=== PATIENT | male | born 1960 | race Caucasian/White ===

== ENCOUNTER 2017-01-05 16:28 | Inpatient (IN) | payer OTHER ==
[~2017-01-05] VITALS: Ht 177.8 cm; Wt 90.7 kg
--- NOTE | 2017-01-05 17:55 | ED GI/GU/ABDOMINAL COMPLAINT ---
History of Present Illness General Chief Complaint: General Adult Stated Complaint: LUMP ON ABDOMEN, LOSS OF APPETITE Source: patient, family, old records Exam Limitations: no limitations Vital Signs & Intake/Output Vital Signs & Intake/Output Vital Signs Date Time Temp Pulse Resp B/P Pulse O2 O2 Flow FiO2 Ox Delivery Rate 01/05 2223 97.6 98 18 100/60 01/05 2051 104 18 108/56 01/05 1941 114 20 108/66 01/05 1926 108 18 100/65 01/05 185 116 18 120/62 01/05 185 145 18 124/68 01/05 1834 107 22 122/67 Room Air 01/05 1646 97.3 120 18 133/83 96 Room Air Allergies Coded Allergies: Penicillins (UNKNOWN 01/05/17) Triage Note: C/O PAINFUL LUMP IN UPPER ABDOMEN X 2 DAYS, WORSE AFTER EATING PIZZA, STATES HE FELT CONSTIPATED, TOOK A LAXATIVE AND FEELING WORSENING PAIN WITH NAUSEA. Triage Nurses Notes Reviewed? yes Onset: Abrupt Duration: day(s): (), week(s): Timing: recent history Quality/Severity: aching, cramping, mild, moderate Severity Numbers: 6 Location: epigastric Radiation: no radiation Activities at Onset: "S/P EATING PIZZA" Prior Abdominal Problems: similar symptoms No Modifying Factors: none Associated Symptoms: PALPITATIONS HPI: 56-year-old male with no known medical history presents to emergency room complaining of a progressively worsening painful "lump" in his epigastric region for the past 2 days after eating a slice of pizza. The patient states that he's had intermittent pain in this region over the past several years that has been getting progressively worse. He thought he was constipated so we attempted taking a laxative which made the pain worse. He denies any chest pain palpitations dizziness fever chills nausea vomiting diarrhea no black or bloody stools. Denies any back pain or other abdominal pain. No history of abdominal surgeries in the past. Patient is not on any medication. He smokes marijuana daily and has a few drinks daily he is homeless and has not seen a doctor in several years. His last drink was approximately 3 days ago he has not taken anything else for the pain. The pain is worse with laying back, there are no other modifying factors or associated symptoms otherwise. (CARLI PATELSAIMA) Past History Travel History Traveled to [place] past 21 day No Medical History Any Pertinent Medical History? none Neurological: NONE EENT: NONE Cardiovascular: NONE Respiratory: NONE Gastrointestinal: NONE Hepatic: NONE Renal: NONE Musculoskeletal: NONE Psychiatric: NONE Surgical History Surgical History: non-contributory Psychosocial History What is your primary language Slovak Tobacco Use: Never used ETOH Use: occasional use Family History Hx Contributory? No (SAIMA PHIPPS) Review of Systems Review of Systems Constitutional: Reports: see HPI. All Other Systems: Reviewed and Negative Comments Review of systems: See HPI, All other systems negative. Constitutional, no chills no fever, no malaise HEENT: No visual changes no sore throat no congestion, Cardiovascular: No chest pain , palpitation Skin, no jaundice no rashes, no change in skin Respiratory: No dyspnea no cough no sputum no hemoptysis GI: No nausea no vomiting, no diarrhea, no bloating/constipation : No dysuria No hematuria, no frequency Muscle skeletal: No joint pain, no joint swelling, no back pain, no neck pain, Neurologic: No numbnessno headache Psych: No stress Heme/endocrine: No bruising no bleeding Immunology: No lymphadenopathy (SAIMA PHIPPS) Physical Exam Physical Exam General Appearance: well developed/nourished, alert, awake Gastrointestinal: soft, non-tender Comments: Well-developed well-nourished person in no acute distress HEENT: Normal EENT exam; PERRL, EOMI, HEAD is atraumatic. moist mucous membranes. Neck: Supple, no lymphadenopathy, normal range of motion without pain or tenderness Back: Nontender, no CVA tenderness. Full range of motion Cardiovascular: Irregular rate and rhythm, tachycardic no murmurs rubs or gallops, normal JVP Respiratory: No respiratory distress. Patient speaking in full complete sentences. Breath sounds clear to auscultation bilaterally: NO W/R/R Abdomen: Soft, tender to palpation over the epigastrium no pulsatile mass nondistended, no appreciable organomegaly. Normal bowel sounds. No rebound/ guarding, No appreciable enlargement of the abdominal aorta, No ascites. Rectal: Nontender. Heme negative stool. Extremity: No edema, full range of motion of extremities Neuro: Alert oriented x3, motor sensory normal, There were no obvious focal neurologic abnormalities. Skin: No appreciable rash on exposed skin, skin is warm and dry. Psych: Mood and affect is normal, memory and judgment is normal. Core Measures ACS in differential dx? Yes Severe Sepsis Present: No Septic Shock Present: No (CARLI PATEL,SAIMA) Progress Differential Diagnosis: AAA, AMI, appendicitis, biliary colic, bowel obstruction , colon cancer, cholecystitis, diverticulitis, esophageal varices, gastritis, hepatitis, hernia, ischemic bowel, perforated viscous, RAPID a. FIB INCARCERATED HERNIA Plan of Care: Orders Procedure Date/time Status Heart Healthy Diet 01/06 B Active TROPONIN LEVEL 01/06 0600 Active CBC WITHOUT DIFFERENTIAL 01/06 0600 Active BASIC ELECTROLYTES PLUS BUN&CR 01/06 0600 Active EKG 01/06 0600 Active TROPONIN LEVEL 01/06 0000 Active EKG 01/06 0000 Active CIWA 01/05 2213 Active Pathway - chart 01/05 2212 Active Patient Data 01/05 221 Active Code Status 01/05 221 Active Admit to inpatient 01/05 2158 Active Patient Data 01/05 2147 Active URINALYSIS 01/05 2138 Active Add-on Test (ER Only) 01/05 2112 Active LACTIC ACID 01/05 2054 Active Intake & Output 01/05 1945 Active Add-on Test (ER Only) 01/05 1915 Active Add-on Test (ER Only) 01/05 1834 Active EKG 01/05 1805 Active THYROID STIMULATING HORMONE 01/05 1800 Complete PARTIAL THROMBOPLASTIN TIME 01/05 1800 Complete PROTHROMBIN TIME 01/05 1800 Complete ETHANOL 01/05 1800 Complete Saline Lock 01/05 1754 Active TROPONIN LEVEL 01/05 1754 Complete LIPASE 01/05 1754 Complete LACTIC ACID 01/05 1754 Complete COMPREHENSIVE METABOLIC PANEL 01/05 1754 Complete CBC WITHOUT DIFFERENTIAL 01/05 1754 Complete AMYLASE 01/05 1754 Complete TRC EVALUATION (GEN) 01/05 UNK Active Pathway - chart 01/05 UNK Active House Staff 01/05 UNK Active VTE Mechanical Prophylaxis 01/05 UNK Active Vital Signs 01/05 UNK Active Telemetry/Coach Builder 01/05 UNK Active Intake & Output 01/05 UNK Active ECHOCARDIOGRAM 01/05 UNK Active Current Medications Sig/Anthony Start time Last Medication Dose Stop Time Status Admin Acetaminophen 650 MG Q6P PRN 01/05 2215 AC (Tylenol) Diltiazem HCl 125 MG ONCE ONE 01/05 1845 AC (Cardizem DRIP) 01/06 1944 Sodium Chloride 100 ML (Normal Saline 0.9%) Laboratory Tests 01/05/17 1800: Anion Gap 9, Estimated GFR > 60, BUN/Creatinine Ratio 12.7, Glucose 108 H, Lactic Acid 1.8, Calcium 9.0, Total Bilirubin 1.0, AST 249 H, ALT 309 H, Alkaline Phosphatase 114, Troponin I 0.11 *H, Total Protein 5.7 L, Albumin 3.5, Globulin 2.2, Albumin/Globulin Ratio 1.6, Amylase < 30 L, Lipase 51, TSH 2.180, PT 14.1 H, INR 1.35 H, APTT 27, CBC w Diff NO MAN DIFF REQ, RBC 4.55 L, MCV 82.8, MCH 27.5, RDW 13.4, MPV 9.3, Gran % 81.9 H, Lymphocytes % 11.2 L, Monocytes % 6.6, Eosinophils % 0.1, Basophils % 0.2, Absolute Granulocytes 12.1 H, Absolute Lymphocytes 1.7, Absolute Monocytes 1.0 H, Absolute Eosinophils 0, Absolute Basophils 0, PUBS MCHC 33.3, Serum Alcohol < 10.0 Labs ordered old records reviewed patient found to be in a rapid A. fib, Cardizem 10 mg IV push ordered without response and additional 10 mg IV push was given which time the patient heart rate decreased into an A. fib in the 90s to 110s Dr. MEJIA at bedside for evaluation 01/05/2017 8:07:20 PM pending CAT scan results patient resting completely reports improvement in his symptoms with Dilaudid, Cardizem drip is running noted to be A. fib in the 90s to 100s I discussed with him at length all of his lab results I discussed the patient is CAT scan results, case was discussed with Dr. CARDENAS WILL ADMIT, AGREES WITH PLAN FOR HEPARIN AND CARDIZEM GTT. (CARLI PATEL,SAIMA) Diagnostic Imaging: Viewed by Me: CT Scan. Discussed w/RAD: CT Scan. Radiology Impression: PATIENT: YARON SANTIAGO PRESENT AGE: 56 PATIENT ACCOUNT NO: [id number] : 60 LOCATION: [facility] ORDERING PHYSICIAN: SAIMA PATEL SERVICE DATE: 01/05/17 EXAM TYPE: CAT - CT ABD & PELVIS ANGIOGRAM; CTA CHEST-AORTIC DISSECTION EXAMINATION: 1. CTA chest: 2. CT ABDOMEN AND PELVIS WITH CONTRAST CLINICAL INFORMATION: Epigastric pain radiating into the chest. Concern for aortic dissection COMPARISON: None. TECHNIQUE: A noncontrast axial images obtained through the chest precontrast., followed by the administration of 95 mL Optiray [address] of the chest was then performed. Coronal and sagittal reformatted and 3-D technique No off site 3-D imaging performed. Images were then performed through the abdomen and pelvis. Coronal and sagittal reformatted images performed at CT scanner by technologist. DLP: 1227.94 mGy-cm. FINDINGS: 1. CTA CHEST; VASCULAR: Normal enhancement of thoracic aorta. No aneurysm or dissection. The pulmonary arteries are well-opacified showing no evidence of pulmonary embolism of the central pulmonary vessels. MEDIASTINUM: There are multiple borderline lymph nodes in the pretracheal retrovascular space and AP window. These may be reactive. LUNGS: There is scattered areas of groundglass nodular opacities at both lower lobes and middle lobe and lingula and in the upper lobe medially bilateral. These are nonspecific. Would favor an infectious or inflammatory etiology. The central bronchial airways are open. There is no bronchiectasis. No interstitial or reticular abnormality. FLUID: There is no pericardial effusion. There is no pleural effusion. AXILLA: No significant lymphadenopathy. 2. CT SCAN ABDOMEN PELVIS: LIVER, GALLBLADDER, AND BILIARY TREE : The liver is normal in size, shape, and attenuation. No focal hepatic lesion or biliary ductal dilatation is present. Gallbladder is normal in size with no calcified stone. There is fluid around the gallbladder but this is indeterminate given the presence of abdominal ascites. No specific inflammation of the mesentery. PANCREAS: Unremarkable. SPLEEN: Unremarkable. ADRENAL GLANDS: Unremarkable. KIDNEYS AND URETERS: The kidneys are normal in size, shape, and attenuation. No hydronephrosis, hydroureter, or calculi seen. No perinephric stranding. BLADDER: Unremarkable. GASTROINTESTINAL TRACT: The small and large bowel are unremarkable. The appendix is not identified. Mesentery: Small moderate volume of abdominal ascites. Fluid around the liver, gallbladder, spleen and bilateral paracolic gutter and layering in the pelvis at the cul-de- sac. No free air. ABDOMINAL WALL: No significant hernia is appreciated. LYMPH NODES: Normal. VASCULAR: Normal enhancement of the vasculature. No aneurysm or dissection of the aorta. Normal enhancement of the celiac axis, SMA, renal arteries and iliac arteries. PELVIC VISCERA: Unremarkable. OSSEOUS STRUCTURES: Unremarkable. IMPRESSION: 1. Normal CT of thoracic and abdominal aorta. No dissection 2. Scattered groundglass and nodular airspace opacities in the lungs bilateral. Would favor an infectious or inflammatory etiology. 3. Abdominal ascites. DICTATED BY: YANCY ORTIZ MD DATE/TIME DICTATED:01/05/171945 HARNESS REPAIRER:LEE DATE/TIME TRANSCRIBED:01/05/171945 CONFIDENTIAL, DO NOT COPY WITHOUT APPROPRIATE AUTHORIZATION. <Electronically signed in Other Vendor System> SIGNED BY: YANCY ORTIZ MD 01/05/17 2100 Initial ED EKG: a. FIB AT 150, pvcS, NO ACUTE st SEGMENT CHANGES NORMAL AXIS Repeat EKG: changed (AFIB 100, NO ACUTE CHANGES) Rhythm Strip: atrial fibrillation (SAIMA PHIPPS) Departure Departure Time of Disposition: 2146 Disposition: STILL A PATIENT Condition: Stable Clinical Impression Primary Impression: Rapid atrial fibrillation Secondary Impressions: Elevated troponin Referrals: UNKNOWN (PCP/Family) Departure Forms: Customer Survey General Discharge Information Admission Note Spoke With: RUFINO CARDENAS MD Documentation of Exam: Documentation of any treatments & extenuating circumstances including Concerns Regarding Discharge (functional status, medication knowledge or non-compliance, living conditions, etc.) that warrant an admission rather than observation: cardiogly eval, cardizem drip, heparin drip, trend labs, troponin (SAIMA PHIPPS) Critical Care Note Critical Care Note Critical Care Time: 30-74 min (SAIMA PHIPPS)
[2017-01-05 18:34] LABS: ABSOLUTE BASOPHIL COUNT 0 /CUMM (0.0-0.2); ABSOLUTE EOSINOPHIL COUNT 0 /CUMM (0.0-0.7); ABSOLUTE GRANULOCYTE CT 12.1 /CUMM (1.4-6.5); ABSOLUTE LYMPH COUNT 1.7 /CUMM (1.2-3.4); BASOPHIL % 0.2 % (0.0-2.0); EOSINOPHIL % 0.1 % (0-5); GRANULOCYTE % 81.9 % (42.2-75.2); HEMATOCRIT 37.7 % (42-52); MEAN CORPUSCULAR HGB 27.5 PG (27.0-31.0); MEAN CORPUSCULAR HGB CONC 33.3 G/DL (33.0-37.0); MEAN CORPUSCULAR VOLUME 82.8 FL (80.0-94.0); MEAN PLATELET VOLUME 9.3 FL (7.4-10.4); PLATELET COUNT 227 /CUMM (130-400); RBC DISTRIBUTION WIDTH 13.4 % (11.5-14.5); RED BLOOD CELL CT 4.55 /CUMM (4.70-6.10); WHITE BLOOD CELL COUNT 14.7 /CUMM (4.8-10.8)
--- NOTE | 2017-01-05 21:00 | CT SCAN REPORT ---
EXAMINATION: 1. CTA chest: 2. CT ABDOMEN AND PELVIS WITH CONTRAST CLINICAL INFORMATION: Epigastric pain radiating into the chest. Concern for aortic dissection COMPARISON: None. TECHNIQUE: A noncontrast axial images obtained through the chest precontrast., followed by the administration of 95 mL Optiray [address] of the chest was then performed. Coronal and sagittal reformatted and 3-D technique No off site 3-D imaging performed. Images were then performed through the abdomen and pelvis. Coronal and sagittal reformatted images performed at CT scanner by technologist. DLP: 1227.94 mGy-cm. FINDINGS: 1. CTA CHEST; VASCULAR: Normal enhancement of thoracic aorta. No aneurysm or dissection. The pulmonary arteries are well-opacified showing no evidence of pulmonary embolism of the central pulmonary vessels. MEDIASTINUM: There are multiple borderline lymph nodes in the pretracheal retrovascular space and AP window. These may be reactive. LUNGS: There is scattered areas of groundglass nodular opacities at both lower lobes and middle lobe and lingula and in the upper lobe medially bilateral. These are nonspecific. Would favor an infectious or inflammatory etiology. The central bronchial airways are open. There is no bronchiectasis. No interstitial or reticular abnormality. FLUID: There is no pericardial effusion. There is no pleural effusion. AXILLA: No significant lymphadenopathy. 2. CT SCAN ABDOMEN PELVIS: LIVER, GALLBLADDER, AND BILIARY TREE: The liver is normal in size, shape, and attenuation. No focal hepatic lesion or biliary ductal dilatation is present. Gallbladder is normal in size with no calcified stone. There is fluid around the gallbladder but this is indeterminate given the presence of abdominal ascites. No specific inflammation of the mesentery. PANCREAS: Unremarkable. SPLEEN: Unremarkable. ADRENAL GLANDS: Unremarkable. KIDNEYS AND URETERS: The kidneys are normal in size, shape, and attenuation. No hydronephrosis, hydroureter, or calculi seen. No perinephric stranding. BLADDER: Unremarkable. GASTROINTESTINAL TRACT: The small and large bowel are unremarkable. The appendix is not identified. Mesentery: Small moderate volume of abdominal ascites. Fluid around the liver, gallbladder, spleen and bilateral paracolic gutter and layering in the pelvis at the cul-de-sac. No free air. ABDOMINAL WALL: No significant hernia is appreciated. LYMPH NODES: Normal. VASCULAR: Normal enhancement of the vasculature. No aneurysm or dissection of the aorta. Normal enhancement of the celiac axis, SMA, renal arteries and iliac arteries. PELVIC VISCERA: Unremarkable. OSSEOUS STRUCTURES: Unremarkable. IMPRESSION: 1. Normal CT of thoracic and abdominal aorta. No dissection 2. Scattered groundglass and nodular airspace opacities in the lungs bilateral. Would favor an infectious or inflammatory etiology. 3. Abdominal ascites.
[2017-01-05 21:38] LABS: PT 14.1 SEC (9.4-12.5); PTT 27 SEC (25-37)
--- NOTE | 2017-01-05 21:50 | History & Physical ---
ARISTEO JACOBS,KRYSTAL 01/05/17 2148: General Information and HPI MD Statement: I have seen and personally examined YARON SANTIAGO and documented this H&P. The patient is a 56 year old M who presented with a patient stated chief complaint of [CP & SOB]. Source of Information: patient Exam Limitations: no limitations History of Present Illness: This is a 56-year-old gentleman with no significant past medical history, has not seen a physician in over 20 years presented to the emergency room with a chief complaint of chest pain and shortness of breath of 2 days duration. Patient states that he has GERD-like symptoms off and on for over the last 5-6 years however over the last couple of days his symptoms started after having a large slice of pizza. He thought his symptoms of chest pain with self alleviate however did not; she subsequently experienced dyspnea on exertion which was alleviated by rest. Denied any orthopnea or paroxysmal nocturnal dyspnea. He is a previous history of cigarette smoking but quit over 10 years ago, denies any illicit drug use but does admit to marijuana use. States that he is drinks 2-3 beers every evening however has not had any alcohol in the last 48-72 hours. Denies any previous history of alcoholic withdrawal seizures. States that his chest pain is substernal and also superior epigastric, nonradiating, not exacerbated or alleviated with movement, squeezing in nature. Allergies/Medications Allergies: Coded Allergies: Penicillins (UNKNOWN 01/05/17) Past History Travel History Traveled to [place] past 21 day No Medical History Neurological: NONE EENT: NONE Cardiovascular: NONE Respiratory: NONE Gastrointestinal: NONE Hepatic: NONE Renal: NONE Musculoskeletal: NONE Psychiatric: NONE Surgical History Surgical History: non-contributory Past Family/Social History Family History Relations & Conditions if any MOTHER, ; Cause: Myocardial infarct. Psychosocial History Primary Language: Kittitian Smoking Status: Former Smoker ETOH Use: occasional use Functional Ability ADLs Independent: dressing, eating, toileting, bathing. IADLs Independent: shopping, housework, finances, food prep, telephone, transportation , medication admin. Review of Systems Review of Systems Constitutional: Reports: see HPI. Exam & Diagnostic Data Last 24 Hrs of Vital Signs/I&O Vital Signs Date Time Temp Pulse Resp B/P Pulse O2 O2 Flow FiO2 Ox Delivery Rate 01/05 2051 104 18 108/56 02/15 1941 114 20 108/66 01/05 1926 108 18 100/65 01/05 1851 116 18 120/62 01/05 1851 145 18 124/68 01/05 1834 107 22 122/67 Room Air 01/05 1646 97.3 120 18 133/83 96 Room Air Physical Exam General Appearance Alert, Oriented X3, Cooperative, No Acute Distress Skin No Rashes, No Breakdown HEENT Atraumatic, PERRLA, EOMI Cardiovascular Normal S1, Normal S2, irregular rate and rhythm Lungs Clear to Auscultation, Normal Air Movement Abdomen Normal Bowel Sounds, Soft, No Tenderness Neurological Normal Speech, Strength at 5/5 X4 Ext, Normal Tone, Sensation Intact, Cranial Nerves 3-12 NL Extremities No Clubbing, No Cyanosis, trace b/l le edema Diagnostic Data EKG Results Rate 147, QRS 84, QTC 482 Atrial fibrillation Other Results CTA chest,ab and pelvis- IMPRESSION: 1. Normal CT of thoracic and abdominal aorta. No dissection 2. Scattered groundglass and nodular airspace opacities in the lungs bilateral. Would favor an infectious or inflammatory etiology. 3. Abdominal ascites. Assessment/Plan Assessment: Assessment- 1. New-onset atrial fibrillation 2. Positive troponin 0.11, likely demand 3. Transaminitis, AST 249, ALT 309 4. Leukocytosis, 14,700, mild left shift; likely reactive 5. History alcohol use Plan- Admitted to telemetry Vitals per protocol Trend troponin and EKG Echocardiogram Cardio consult IV Cardizem drip and IV heparin drip Placed on CIWA protocol Get blood cultures Consider GI consult for likely gastritis Heart healthy diet Pain pathway DVT prophylaxis with heparin Full code As Ranked By This Provider Problem List: 1. Rapid atrial fibrillation 2. Elevated troponin 3. Alcohol dependence Core Measures/Miscellaneous Acute Coronary Syndrome ACS Diagnosis: No Cerebrovascular Accident CVA/TIA Diagnosis: No Congestive Heart Failure CHF Diagnosis: No Venous Thromboembolism VTE Risk Factors: Age > 40 VTE Prophylaxis Ordered Inpt: Pharm- Heparin No Mech VTE prophylaxis d/t: No contraindications No VTE Pharm Prophylaxis d/t: No contraindications VTE Diagnosis: No VTE Type: NONE VTE Confirmed by (Test): NONE Severe Sepsis Severe Sepsis Present: No Septic Shock Septic Shock Present: No Miscellaneous Documentation Attending Case Discussed With: Dr. Martin Primary Care Physician: UNKNOWN Patient sees these Specialists none Level of Patient Care: Telemetry Resident Review Statement Resident Statement: examined this patient, discussed with advertising internship ZAYRA SHIPLEY MDNASH 01/06/17 1104: Attending MD Review Statement Attending Statement Attending MD Statement: examined this patient, discuss w/resident/PA/FORMING PRESS OPERATOR, reviewed EMR data (avail), discussed with case mgmt, reviewed images, amended to note (see my note)
[2017-01-05 23:50] VITALS: BP 98/62
[2017-01-06] VITALS (9 sets, daily range): BP systolic 98–106; BP diastolic 60–62
[2017-01-06 05:49] LABS: ABSOLUTE BASOPHIL COUNT 0 /CUMM (0.0-0.2); ABSOLUTE EOSINOPHIL COUNT 0.1 /CUMM (0.0-0.7); ABSOLUTE GRANULOCYTE CT 4.4 /CUMM (1.4-6.5); ABSOLUTE LYMPH COUNT 2.4 /CUMM (1.2-3.4); ABSOLUTE MONOCYTE COUNT 0.6 /CUMM (0.10-0.60); BASOPHIL % 0.6 % (0.0-2.0); GRANULOCYTE % 58.6 % (42.2-75.2); MEAN CORPUSCULAR HGB 27.7 PG (27.0-31.0); MEAN CORPUSCULAR HGB CONC 33.1 G/DL (33.0-37.0); MEAN CORPUSCULAR VOLUME 83.8 FL (80.0-94.0); MEAN PLATELET VOLUME 9.3 FL (7.4-10.4); PLATELET COUNT 161 /CUMM (130-400); RBC DISTRIBUTION WIDTH 13.5 % (11.5-14.5); RED BLOOD CELL CT 3.87 /CUMM (4.70-6.10); WHITE BLOOD CELL COUNT 7.6 /CUMM (4.8-10.8)
[2017-01-06 05:54] LABS: HEMATOCRIT 32.4 % (42-52); PTT 41 SEC (25-37)
--- NOTE | 2017-01-06 07:00 | PN- Housestaff ---
ANAHY LLOYD MD 01/06/17 0700: Subjective Follow-up For: New onset atrial fibrillation with RVR Demand ischemia Transaminitis with ascites Subjective: Patient seen and examined at bedside this AM. He reports he feels well but is requesting food as he is hungry. Patient understands that we are keeping him NPO pending gastroenterology input regarding his abdominal ascites and transaminitis. Patient currently offers no complaints, specifically no chest pain or palpiations. Review of Systems Constitutional: Denies: fever, malaise. EENTM: Denies: visual changes, nasal congestion. Cardiovascular: Denies: chest pain, orthopena, palpitations, peripheral edema. Respiratory: Denies: cough, short of breath. Gastrointestinal: Denies: abdominal pain, nausea. Genitourinary: Denies: hematuria. Musculoskeletal: Reports: muscle pain (Epigastric pain). Denies: back pain. Skin: Denies: lesions. Neurological/Psychological: Denies: anxiety, headache. Hematologic/Endocrine: Denies: polyuria, polydipsia. Objective Last 24 Hrs of Vital Signs/I&O Vital Signs Date Time Temp Pulse Resp B/P Pulse O2 O2 Flow FiO2 Ox Delivery Rate 01/06 1424 Room Air Room Air 01/06 1215 101 104/70 01/06 1000 106 20 104/60 01/06 0809 98.1 77 18 100/60 95 Room Air 01/06 0800 84 16 100/60 01/06 0600 88 16 102/62 01/06 0400 86 16 100/60 01/06 0200 96 16 100/62 16 0000 98 20 98/60 01/05 2350 98.1 98 20 98/62 95 Room Air 01/05 2223 97.6 98 18 100/60 01/05 2051 104 18 108/56 01/05 1941 114 20 108/66 01/05 1926 108 18 100/65 01/05 1851 116 18 120/62 01/05 1851 145 18 124/68 01/05 1834 107 22 122/67 Room Air 01/05 1646 97.3 120 18 133/83 96 Room Air Intake & Output 01/06 1600 01/06 0800 01/06 0000 Intake Total 608 1000 Output Total 450 Balance 158 1000 Intake, IV 248 1000 Intake, Oral 360 Output, Urine 450 Patient 200 lb Weight Physical Exam General Appearance: Alert, Oriented X3, Cooperative, No Acute Distress Skin: No Significant Lesion HEENT: Atraumatic, PERRLA, Mucous Membr. moist/pink Neck: +2 Carotid Pulse wo Bruit Lymphatic: Cervical nl Cardiovascular: Irregularly irregular Lungs: Clear to Auscultation, Normal Air Movement Abdomen: Normal Bowel Sounds, Epigastric tenderness as well as tenderness of RUQ on moderate/deep palpation. + hernia midline abdomen epigastric area. No guarding. Neurological: Normal Speech, Strength at 5/5 X4 Ext, Normal Tone, Cranial Nerves 3-12 NL Extremities: No Clubbing, No Cyanosis, No Edema Vascular: Pulses Symmetrical Current Medications: Current Medications Sig/Anthony Start time Last Medication Dose Route Stop Time Status Admin Acetaminophen 650 MG Q6P PRN 01/05 2215 DC PO Dextrose/Sodium 1,000 ML Q20H 01/06 1045 AC 01/06 Chloride IV 1215 Diltiazem HCl 30 MG Q6 01/06 1200 AC 01/06 PO 1215 Diltiazem HCl 125 MG Q24H 01/06 0630 AC 01/06 Sodium Chloride 100 ML IV 0637 Diltiazem HCl 125 MG ONCE ONE 01/05 1845 DC 01/05 Sodium Chloride 100 ML IV 01/06 1124 1915 Diltiazem HCl 125 MG ONCE ONE 01/05 1845 DC 01/06 Sodium Chloride 100 ML IV 01/06 1944 0017 Diltiazem HCl 0 .STK-MED ONE 01/05 1837 DC IV Diltiazem HCl 10 MG ONCE ONE 01/05 1830 DC 01/05 IV PUSH 01/05 1831 1851 Diltiazem HCl 10 MG ONCE ONE 01/05 1830 DC 01/05 IV PUSH 01/05 1831 1851 Diltiazem HCl 0 .STK-MED ONE 01/05 1827 DC .ROUTE Heparin Sodium 6,800 UNIT ONCE ONE 01/06 0630 DC 01/06 (Porcine) IV 01/06 0631 0620 Heparin Sodium 0 .STK-MED ONE 01/05 2136 DC (Porcine) .ROUTE Heparin Sodium 5,000 UNIT ONCE ONE 01/05 2115 DC (Porcine) IV 01/05 2116 Heparin Sodium/ 25,000 UNIT Q24H 01/06 0630 AC 01/06 Dextrose IV 0638 Dextrose/Water 500 ML Heparin Sodium/ 0 .STK-MED ONE 01/05 2136 DC Dextrose IV Heparin Sodium/ 25,000 UNIT ONCE ONE 01/05 2115 DC 01/05 Dextrose IV 01/26 1714 2212 Dextrose/Water 500 ML Hydromorphone HCl 1 MG ONCE ONE 01/05 1800 DC IV 01/05 1801 Sodium Chloride 1,000 ML BOLUS ONE 01/05 1915 DC 01/05 IV 01/05 Sodium Chloride 1,000 ML BOLUS ONE 01/05 1800 DC 01/05 IV 01/05 1859 1852 Last 24 Hrs of Lab/Armond Results Last 24 Hrs of Labs/Mics: Laboratory Tests 01/06/17 1200: APTT 70 H 01/06/17 1130: Troponin I Cancelled 01/06/17 0520: Anion Gap 7, Estimated GFR > 60, BUN/Creatinine Ratio 12.0, Troponin I 0.11 *H, APTT 41 H, CBC w Diff NO MAN DIFF REQ, RBC 3.87 L, MCV 83.8, MCH 27.7, RDW 13.5, MPV 9.3, Gran % 58.6, Lymphocytes % 32.1, Monocytes % 7.7, Eosinophils % 1.0, Basophils % 0.6, Absolute Granulocytes 4.4, Absolute Lymphocytes 2.4, Absolute Monocytes 0.6, Absolute Eosinophils 0.1, Absolute Basophils 0, PUBS MCHC 33.1 01/06/17 0200: Urine Color YEL, Urine Clarity CLEAR, Urine pH 6.0, Ur Specific Deale 1.010, Urine Protein NEG, Urine Ketones NEG, Urine Nitrite NEG, Urine Bilirubin NEG, Urine Urobilinogen 0.2, Ur Leukocyte Esterase NEG, Ur Microscopic EXAM NOT REQUIRED, Urine Hemoglobin NEG, Urine Glucose NEG 01/06/17 0030: Troponin I 0.11 *H 01/06/17 0030: Lactic Acid 1.0 01/05/17 1800: Anion Gap 9, Estimated GFR > 60, BUN/Creatinine Ratio 12.7, Glucose 108 H, Lactic Acid 1.8, Calcium 9.0, Total Bilirubin 1.0, AST 249 H, ALT 309 H, Alkaline Phosphatase 114, Troponin I 0.11 *H, Total Protein 5.7 L, Albumin 3.5, Globulin 2.2, Albumin/Globulin Ratio 1.6, Amylase < 30 L, Lipase 51, TSH 2.180, PT 14.1 H, INR 1.35 H, APTT 27, CBC w Diff NO MAN DIFF REQ, RBC 4.55 L, MCV 82.8, MCH 27.5, RDW 13.4, MPV 9.3, Gran % 81.9 H, Lymphocytes % 11.2 L, Monocytes % 6.6, Eosinophils % 0.1, Basophils % 0.2, Absolute Granulocytes 12.1 H, Absolute Lymphocytes 1.7, Absolute Monocytes 1.0 H, Absolute Eosinophils 0, Absolute Basophils 0, PUBS MCHC 33.3, Serum Alcohol < 10.0 Orders Radiology Findings: EXAMINATION: 1. CTA chest: 2. CT ABDOMEN AND PELVIS WITH CONTRAST CLINICAL INFORMATION: Epigastric pain radiating into the chest. Concern for aortic dissection COMPARISON: None. TECHNIQUE: A noncontrast axial images obtained through the chest precontrast., followed by the administration of 95 mL Optiray [address] of the chest was then performed. Coronal and sagittal reformatted and 3-D technique No off site 3-D imaging performed. Images were then performed through the abdomen and pelvis. Coronal and sagittal reformatted images performed at CT scanner by technologist. DLP: 1227.94 mGy-cm. FINDINGS: 1. CTA CHEST; VASCULAR: Normal enhancement of thoracic aorta. No aneurysm or dissection. The pulmonary arteries are well-opacified showing no evidence of pulmonary embolism of the central pulmonary vessels. MEDIASTINUM: There are multiple borderline lymph nodes in the pretracheal retrovascular space and AP window. These may be reactive. LUNGS: There is scattered areas of groundglass nodular opacities at both lower lobes and middle lobe and lingula and in the upper lobe medially bilateral. These are nonspecific. Would favor an infectious or inflammatory etiology. The central bronchial airways are open. There is no bronchiectasis. No interstitial or reticular abnormality. FLUID: There is no pericardial effusion. There is no pleural effusion. AXILLA: No significant lymphadenopathy. 2. CT SCAN ABDOMEN PELVIS: LIVER, GALLBLADDER, AND BILIARY TREE: The liver is normal in size, shape, and attenuation. No focal hepatic lesion or biliary ductal dilatation is present. Gallbladder is normal in size with no calcified stone. There is fluid around the gallbladder but this is indeterminate given the presence of abdominal ascites. No specific inflammation of the mesentery. PANCREAS: Unremarkable. SPLEEN: Unremarkable. ADRENAL GLANDS: Unremarkable. KIDNEYS AND URETERS: The kidneys are normal in size, shape, and attenuation. No hydronephrosis, hydroureter, or calculi seen. No perinephric stranding. BLADDER: Unremarkable. GASTROINTESTINAL TRACT: The small and large bowel are unremarkable. The appendix is not identified. Mesentery: Small moderate volume of abdominal ascites. Fluid around the liver, gallbladder, spleen and bilateral paracolic gutter and layering in the pelvis at the cul-de-sac. No free air. ABDOMINAL WALL: No significant hernia is appreciated. LYMPH NODES: Normal. VASCULAR: Normal enhancement of the vasculature. No aneurysm or dissection of the aorta. Normal enhancement of the celiac axis, SMA, renal arteries and iliac arteries. PELVIC VISCERA: Unremarkable. OSSEOUS STRUCTURES: Unremarkable. IMPRESSION: 1. Normal CT of thoracic and abdominal aorta. No dissection 2. Scattered groundglass and nodular airspace opacities in the lungs bilateral. Would favor an infectious or inflammatory etiology. 3. Abdominal ascites. Assessment/Plan Assessment: Mr. Ferrera is a 56 year old male with no significant past medical history and past social history of possible ETOH dependance who presented to the [facility] ED on 01/05/17 with chief complaint of GERD-like symptoms for approximately 2 days. Patient reports that he was eating pizza and noticed this became "stuck" by his abdominal hernia, after which he took gas-x without relief. Associated symptoms included decreased oral intake secondary to abdominal pain and mild palpitaitons with chest discomfort. In the ED: Vital signs showed T 97.3, HR 120, RR 18, BP 133/83 and O2 saturation of 96% on RA. Labs showed WBC 14.7, H&H 12.6/37.7, Plt 227, Na 134 and otherwise unremarkable BEP. Troponin 0.11. Amylase/lipase WNL. TSH 2.18. INR 1.35. Alcohol <10. EKG showed atrial fibrillation with RVR, HR 147, QRS [address] chest/ abdomen/pelvis showed no dissection of aorta, groundglass airspace disease and abdominal ascites. Patient is admitted to the telemetry floor and the following is the management: 1. New onset atrial fibrillation with RVR * CHADS-Vasc 0 * Patient started on IV heparin drip as well as IV cardizem drip * Patient started on 30 mg PO cardizem Q6 while titrating off cardizem drip, heart rate well controlled will taper off throughout the day * No cardioversion to be done at this time * Due to low CHADS-Vasc, patient will liekly not require lifelong AC 2. Epigastric pain with transaminitis and ascites * On admission, patient had abdominal/pelvis CTA that showed abdominal ascites * GI consult placed and appreciated * Suggested advancing to low sodium, high fiber diet which was done * IR contacted and suggested only small amount of fluid that is moderate to remove given close proximity to liver (this has been discussed with Dr. Campos and we will not proceed with paracentesis) * Protonix 40 gm PO daily started, mirlax for consitpation * Vital hepatitis panel, VIKI and iron studies ordered, f/u results * Follow daily LFTs 3. ETOH dependance * Patient placed on CIWA scale * CIWA has been 0 since admission * Consulted patient on abstinence from ETOH and he acknowledged understanding FULL CODE DVTP: IV heparin Problem List: 1. Rapid atrial fibrillation 2. Elevated troponin 3. Alcohol dependence Pain Ratin Pain Location: Epigastric area Pain Goal: Pain 4 or less Pain Plan: Mild pain pathway. Tomorrow's Labs & Rationales: CBC (on heparin drip), LFT[facility] 1104: Attending MD Review Statement Attending Statement Attending MD Statement: examined this patient, discuss w/resident/PA/SUSTAINABILITY COACH, reviewed EMR data (avail), discussed with case mgmt, reviewed images, amended to note (see my note)
--- NOTE | 2017-01-06 11:11 | PN- Att Addend ---
Attending Addendum Attending Brief Note 1. New onset atrial fibrillation with rapid ventricular response; CHADS-Vasc 0 2. Minimal troponin elevation, nonspecific with flat troponin curve 3. EtOH dependence 4. Abdominal pain with ascites 5. Abnormal LFTs Patient presents with new onset atrial fibrillation, possibly precipitated by the abdominal pain. We'll continue intravenous Cardizem drip and start on oral Cardizem for rate control. His CHADS-Vasc score is low and will likely not need for anticoagulation in the future but we will keep him on intravenous heparin temporarily. No indication for urgent cardioversion at this time. Will request GI consultation and if needed the heparin can be held for any indicated procedures (?paracentesis). We will obtain an echocardiogram. The minimal troponin elevation with flat troponin curve is nonspecific and unlikely due to cardiac ischemia. As the patient has had no primary care follow-up in many years we will arrange for both close primary care and cardiology follow-up after discharge. No evidence of EtOH withdrawal at this time. I have personally seen and examined this patient. I have personally reviewed all relevant imaging and laboratory data. I have discussed the case with the care team. Roberto Fitzgerald MD [facility]
[2017-01-06 12:55] LABS: PTT 70 SEC (25-37)
--- NOTE | 2017-01-06 15:20 | Cons- Gastroenterology ---
General Information and HPI Consulting Request Date of Consult: 01/06/17 Requested By: RUFINO CARDENAS MD Reason for Consult: Abdominal pain, ascites on ct scan. Source of Information: patient Exam Limitations: no limitations History of Present Illness: Mr. Ferrera is a 56-year-old male with no significant previous medical history who presented to [facility] yesterday with complaints of worsening abdominal pain and wound up getting admitted with rapid A. fib. The patient notes that several days before admission after eating he develops severe midepigastric abdominal pain and he felt as though something was caught in his stomach, but he denied any dysphagia to solids or liquids. The pain was sharp in character and did not radiate to his back or right upper quadrant. He felt that he was constipated so he took a bottle of magnesium citrate which did result in a scant bowel movement and some improvement in his abdominal pain, but the symptoms recurred the following day which caused him to come to the ER. He has had some nausea but he has been without any vomiting or hematemesis. He also denies any burning epigastric pain or heartburn. While he has had difficulty moving his bowels he has been without any bright blood per rectum or any melena. In the emergency room the patient was found to be in rapid A. fib and he was admitted to telemetry and was started on IV Cardizem and IV heparin. He also had a CAT scan which was negative for obstruction or any obvious source of his abdominal pain. Since admission he has been hemodynamically stable and afebrile and his abdominal pain has markedly improved, but he is still complaining of it. Allergies/Medications Allergies: Coded Allergies: Penicillins (UNKNOWN 01/05/17) Home Med List: Dicyclomine Hydrochloride (Bentyl) 10 MG CAPSULE 1 CAP PO 4 TIMES/DAY PRN Abdominal pain Lisinopril 2.5 MG TABLET 1 TAB PO DAILY HTN Metoprolol Succ XL (Toprol XL) 25 MG TAB 1.5 TAB PO DAILY HTN Omeprazole Magnesium (Prilosec Otc) 20 MG TABLET.DR 1 TAB PO DAILY GERD Polyethylene Glycol 3350 (Miralax) 17 GRAM/DOSE POWDER 17 GM PO DAILY PRN Constipation mix with water, juice, soda, coffee or tea Rivaroxaban (Xarelto) 20 MG TABLET 1 TAB PO QPM Anticoagulant with food Current Medications: Current Medications Sig/Anthony Start time Last Medication Dose Route Stop Time Status Admin Acetaminophen 650 MG Q6P PRN 01/05 2215 DC PO Dextrose/Sodium 1,000 ML Q20H 01/06 1045 AC 01/06 Chloride IV 1215 Diltiazem HCl 30 MG Q6 01/06 1200 AC 01/06 PO 1215 Diltiazem HCl 125 MG Q24H 01/06 0630 AC 01/06 Sodium Chloride 100 ML IV 0637 Diltiazem HCl 125 MG ONCE ONE 01/05 1845 DC 01/05 Sodium Chloride 100 ML IV 01/06 1124 1915 Diltiazem HCl 125 MG ONCE ONE 01/05 1845 DC 01/06 Sodium Chloride 100 ML IV 01/06 1944 0017 Diltiazem HCl 0 .STK-MED ONE 01/05 183 DC IV Diltiazem HCl 10 MG ONCE ONE 01/05 1830 DC 01/05 IV PUSH 01/05 1831 1851 Diltiazem HCl 10 MG ONCE ONE 01/05 1830 DC 01/05 IV PUSH 01/05 183 1851 Diltiazem HCl 0 .STK-MED ONE 01/05 1827 DC .ROUTE Heparin Sodium 6,800 UNIT ONCE ONE 01/06 0630 DC 01/06 (Porcine) IV 01/06 0631 0620 Heparin Sodium 0 .STK-MED ONE 01/05 213 DC (Porcine) .ROUTE Heparin Sodium 5,000 UNIT ONCE ONE 01/05 2115 DC (Porcine) IV 01/05 211 Heparin Sodium/ 25,000 UNIT Q24H 01/06 0630 AC 01/06 Dextrose IV 0638 Dextrose/Water 500 ML Heparin Sodium/ 0 .STK-MED ONE 01/05 2136 DC Dextrose IV Heparin Sodium/ 25,000 UNIT ONCE ONE 01/05 2115 DC 01/05 Dextrose IV /08 1714 2212 Dextrose/Water 500 ML Hydromorphone HCl 1 MG ONCE ONE 01/05 1800 DC IV 01/05 1801 Sodium Chloride 1,000 ML BOLUS ONE 01/05 1915 DC 01/05 IV 01/05 2014 2000 Sodium Chloride 1,000 ML BOLUS ONE 01/05 1800 DC 01/05 IV 01/05 1859 1852 Past History Travel History Traveled to [place] past 21 day No Medical History Blood Transfusion Hx: No Neurological: NONE EENT: NONE Cardiovascular: NONE Respiratory: NONE Gastrointestinal: NONE Hepatic: NONE Renal: NONE Musculoskeletal: NONE Psychiatric: NONE Endocrine: NONE Blood Disorders: NONE Cancer(s): NONE 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 Psychosocial History Where Do You Live? Home Services at Home: None Primary Language: Swedish Smoking Status: Former Smoker ETOH Use: occasional use Functional Ability ADLs Independent: dressing, eating, toileting, bathing. IADLs Independent: shopping, housework, finances, food prep, telephone, transportation , medication admin. Review of Systems Review of Systems Constitutional: Denies: no symptoms. EENTM: Denies: no symptoms. Cardiovascular: Reports: palpitations. Respiratory: Denies: no symptoms. GI: Reports: see HPI. Genitourinary: Denies: no symptoms. Musculoskeletal: Denies: no symptoms. Skin: Denies: no symptoms. Neurological/Psychological: Denies: no symptoms. Hematologic/Endocrine: Denies: no symptoms. Immunologic/Allergic: Denies: no symptoms. All Other Systems: Reviewed and Negative Exam & Diagnostic Data Vital Signs and I&O Vital Signs Date Time Temp Pulse Resp B/P Pulse O2 O2 Flow FiO2 Ox Delivery Rate 01/06 1424 Room Air Room Air 01/06 1215 101 104/70 01/06 1000 106 20 104/60 01/06 0809 98.1 77 18 100/60 95 Room Air 01/06 0800 84 16 100/60 01/06 0600 88 16 102/62 01/06 0400 86 16 100/60 01/06 0200 96 16 100/62 01/06 0000 98 20 98/60 01/05 2350 98.1 98 20 98/62 95 Room Air 01/05 2223 97.6 98 18 100/60 01/05 2051 104 18 108/56 01/05 1941 114 20 108/66 01/05 1926 108 18 100/65 01/05 1851 116 18 120/62 01/05 1851 145 18 124/68 01/05 1834 107 22 122/67 Room Air 01/05 1646 97.3 120 18 133/83 96 Room Air Intake & Output 01/06 1600 01/06 0400 01/05 1600 01/05 0400 01/04 1600 01/04 0400 Intake Total 608 1000 Output Total 450 Balance 158 1000 Intake, IV 248 1000 Intake, Oral 360 Output, Urine 450 Patient 200 lb Weight Physical Exam General Appearance: well developed/nourished, no apparent distress, alert, awake , comfortable Head: atraumatic, normal appearance Eyes: Bilateral: normal appearance. Ears, Nose, Throat: normal pharynx, normal ENT inspection Neck: normal inspection, supple, full range of motion Respiratory: normal breath sounds, chest non-tender, no respiratory distress Cardiovascular: irregularly irregular Gastrointestinal: normal bowel sounds, soft, tenderness Rectal: deferred Back: normal inspection Extremities: normal inspection Neurologic/Psych: no motor/sensory deficits, awake, alert, oriented x 3 Skin: intact, normal color, warm/dry Lymphatic: adenopathy Results Pertinent Lab Results: Laboratory Tests 01/06 01/06 01/06 1200 1130 0520 Chemistry Sodium (137 - 145 mmol/L) 136 L Potassium (3.5 - 5.1 mmol/L) 4.2 Chloride (98 - 107 mmol/L) 107 Carbon Dioxide (22 - 30 mmol/L) 22 Anion Gap (5 - 16) 7 BUN (9 - 20 mg/dL) 12 Creatinine (0.7 - 1.2 mg/dL) 1.0 Estimated GFR (>60 ml/min) > 60 BUN/Creatinine Ratio (7 - 25 %) 12.0 Troponin I (<0.11 ng/ml) Cancelled 0.11 *H Coagulation APTT (25 - 37 SEC) 70 H 41 H Hematology CBC w Diff NO MAN DIFF REQ WBC (4.8 - 10.8 /CUMM) 7.6 RBC (4.70 - 6.10 /CUMM) 3.87 L Hgb (14.0 - 18.0 G/DL) 10.7 L Hct (42 - 52 %) 32.4 L MCV (80.0 - 94.0 FL) 83.8 MCH (27.0 - 31.0 PG) 27.7 RDW (11.5 - 14.5 %) 13.5 Plt Count (130 - 400 /CUMM) 161 MPV (7.4 - 10.4 FL) 9.3 Gran % (42.2 - 75.2 %) 58.6 Lymphocytes % (20.5 - 51.1 %) 32.1 Monocytes % (1.7 - 9.3 %) 7.7 Eosinophils % (0 - 5 %) 1.0 Basophils % (0.0 - 2.0 %) 0.6 Absolute Granulocytes (1.4 - 6.5 /CUMM) 4.4 Absolute Lymphocytes (1.2 - 3.4 /CUMM) 2.4 Absolute Monocytes (0.10 - 0.60 /CUMM) 0.6 Absolute Eosinophils (0.0 - 0.7 /CUMM) 0.1 Absolute Basophils (0.0 - 0.2 /CUMM) 0 PUBS MCHC (33.0 - 37.0 G/DL) 33.1 01/06 01/06 01/06 0200 0030 0030 Chemistry Lactic Acid (0.7 - 2.1 mmol/L) 1.0 Troponin I (<0.11 ng/ml) 0.11 *H Urines Urine Color (YEL,AMB,STR) YEL Urine Clarity (CLEAR) CLEAR Urine pH (5.0 - 8.0) 6.0 Ur Specific [place] (1.001 - 1.035) 1.010 Urine Protein (NEG,<30 MG/DL) NEG Urine Ketones (NEG) NEG Urine Nitrite (NEG) NEG Urine Bilirubin (NEG) NEG Urine Urobilinogen (0.1 - 1.0 EU/dl) 0.2 Ur Leukocyte Esterase (NEG) NEG Ur Microscopic EXAM NOT REQUIRED Urine Hemoglobin (NEG) NEG Urine Glucose (N MG/DL) NEG 01/05 1800 Chemistry Sodium (137 - 145 mmol/L) 134 L Potassium (3.5 - 5.1 mmol/L) 4.8 Chloride (98 - 107 mmol/L) 101 Carbon Dioxide (22 - 30 mmol/L) 24 Anion Gap (5 - 16) 9 BUN (9 - 20 mg/dL) 14 Creatinine (0.7 - 1.2 mg/dL) 1.1 Estimated GFR (>60 ml/min) > 60 BUN/Creatinine Ratio (7 - 25 %) 12.7 Glucose (65 - 99 mg/dL) 108 H Lactic Acid (0.7 - 2.1 mmol/L) 1.8 Calcium (8.4 - 10.2 mg/dL) 9.0 Total Bilirubin (0.2 - 1.3 mg/dL) 1.0 AST (17 - 59 U/L) 249 H ALT (21 - 72 U/L) 309 H Alkaline Phosphatase (< 127 U/L) 114 Troponin I (<0.11 ng/ml) 0.11 *H Total Protein (6.3 - 8.2 g/dL) 5.7 L Albumin (3.5 - 5.0 g/dL) 3.5 Globulin (1.9 - 4.2 gm/dL) 2.2 Albumin/Globulin Ratio (1.1 - 2.2 %) 1.6 Amylase (30 - 110 U/L) < 30 L Lipase (23 - 300 U/L) 51 TSH (0.270 - 4.200 uIU/mL) 2.180 Coagulation PT (9.4 - 12.5 SEC) 14.1 H INR (0.90 - 1.17) 1.35 H APTT (25 - 37 SEC) 27 Hematology CBC w Diff NO MAN DIFF REQ WBC (4.8 - 10.8 /CUMM) 14.7 H RBC (4.70 - 6.10 /CUMM) 4.55 L Hgb (14.0 - 18.0 G/DL) 12.6 L Hct (42 - 52 %) 37.7 L MCV (80.0 - 94.0 FL) 82.8 MCH (27.0 - 31.0 PG) 27.5 RDW (11.5 - 14.5 %) 13.4 Plt Count (130 - 400 /CUMM) 227 MPV (7.4 - 10.4 FL) 9.3 Gran % (42.2 - 75.2 %) 81.9 H Lymphocytes % (20.5 - 51.1 %) 11.2 L Monocytes % (1.7 - 9.3 %) 6.6 Eosinophils % (0 - 5 %) 0.1 Basophils % (0.0 - 2.0 %) 0.2 Absolute Granulocytes (1.4 - 6.5 /CUMM) 12.1 H Absolute Lymphocytes (1.2 - 3.4 /CUMM) 1.7 Absolute Monocytes (0.10 - 0.60 /CUMM) 1.0 H Absolute Eosinophils (0.0 - 0.7 /CUMM) 0 Absolute Basophils (0.0 - 0.2 /CUMM) 0 PUBS MCHC (33.0 - 37.0 G/DL) 33.3 Toxicology Serum Alcohol (<10 MG/DL) < 10.0 Imaging/Other Studies: EXAM TYPE: CAT - CT ABD & PELVIS ANGIOGRAM; CTA CHEST-AORTIC DISSECTION EXAMINATION: 1. CTA chest: 2. CT ABDOMEN AND PELVIS WITH CONTRAST CLINICAL INFORMATION: Epigastric pain radiating into the chest. Concern for aortic dissection COMPARISON: None. TECHNIQUE: A noncontrast axial images obtained through the chest precontrast., followed by the administration of 95 mL Optiray [address] of the chest was then performed. Coronal and sagittal reformatted and 3-D technique No off site 3-D imaging performed. Images were then performed through the abdomen and pelvis. Coronal and sagittal reformatted images performed at CT scanner by technologist. DLP: 1227.94 mGy-cm. FINDINGS: 1. CTA CHEST; VASCULAR: Normal enhancement of thoracic aorta. No aneurysm or dissection. The pulmonary arteries are well-opacified showing no evidence of pulmonary embolism of the central pulmonary vessels. MEDIASTINUM: There are multiple borderline lymph nodes in the pretracheal retrovascular space and AP window. These may be reactive. LUNGS: There is scattered areas of groundglass nodular opacities at both lower lobes and middle lobe and lingula and in the upper lobe medially bilateral. These are nonspecific. Would favor an infectious or inflammatory etiology. The central bronchial airways are open. There is no bronchiectasis. No interstitial or reticular abnormality. FLUID: There is no pericardial effusion. There is no pleural effusion. AXILLA: No significant lymphadenopathy. 2. CT SCAN ABDOMEN PELVIS: LIVER, GALLBLADDER, AND BILIARY TREE: The liver is normal in size, shape, and attenuation. No focal hepatic lesion or biliary ductal dilatation is present. Gallbladder is normal in size with no calcified stone. There is fluid around the gallbladder but this is indeterminate given the presence of abdominal ascites. No specific inflammation of the mesentery. PANCREAS: Unremarkable. SPLEEN: Unremarkable. ADRENAL GLANDS: Unremarkable. KIDNEYS AND URETERS: The kidneys are normal in size, shape, and attenuation. No hydronephrosis, hydroureter, or calculi seen. No perinephric stranding. BLADDER: Unremarkable. GASTROINTESTINAL TRACT: The small and large bowel are unremarkable. The appendix is not identified. Mesentery: Small moderate volume of abdominal ascites. Fluid around the liver, gallbladder, spleen and bilateral paracolic gutter and layering in the pelvis at the cul-de-sac. No free air. ABDOMINAL WALL: No significant hernia is appreciated. LYMPH NODES: Normal. VASCULAR: Normal enhancement of the vasculature. No aneurysm or dissection of the aorta. Normal enhancement of the celiac axis, SMA, renal arteries and iliac arteries. PELVIC VISCERA: Unremarkable. OSSEOUS STRUCTURES: Unremarkable. IMPRESSION: 1. Normal CT of thoracic and abdominal aorta. No dissection 2. Scattered groundglass and nodular airspace opacities in the lungs bilateral. Would favor an infectious or inflammatory etiology. 3. Abdominal ascites. Assessment/Plan Assessment/Recommendations: Assessment: Mr. Ferrear is a 56-year-old male who presented to [facility] with complaints of diffuse abdominal pain and was admitted for rapid atrial fibrillation and has since been started on IV Cardizem and IV heparin. The etiology of his abdominal pain is not clear, however his CAT scan was negative for any obvious bowel obstruction or acute intra-abdominal pathology. He was noted to have a moderate amount of ascites on CAT scan, but he does not have radiographic evidence of cirrhosis and his platelet count over 150,000 also argues against significant portal hypertension. He was noted to have a history of alcohol dependence on his admitting diagnoses, however the patient denies heavy alcohol intake and while his LFTs are elevated this is most likely from a fatty liver as the ratio is not consistent with alcohol. While it may be helpful to perform a diagnostic paracentesis to rule out SBP I'm not certain that there is enough fluid to sample based on his lack of a fluid wave or significant abdominal distention on physical exam. He does have point tenderness on physical examination in the midepigastrium, but he does not have an obvious hernia and his CAT scan was negative for any significant hernia. Considering his reports of constipation and some improvement in his abdominal pain with having a bowel movement I suspect that some of his symptoms may be functional in etiology and may improve with some adjustments to his bowel regimen. As he is over 50 years of age has not had a prior endoscopic workup it would not be unreasonable to pursue this now, however as he is without signs of overt GI bleeding or any other concerning warning signs and is currently getting anticoagulated for rapid atrial fibrillation this can likely safely be pursued as an outpatient. Recognitions: 1. Advance to a low-sodium, high-fiber diet as tolerated. 2. Check with interventional radiology as to if the amount of ascites he had on his CAT scan would be amenable to a diagnostic tap and if it is would temporary hold his heparin so that one can be performed and would send the ascitic fluid for a cell count, Gram stain, culture, total protein, and albumin. 3. Administer analgesia as needed. 4. Place the patient on oral PPI. 5. Would start a standing order MiraLAX for constipation. 6. Treatment of atrial fibrillation as per cardiology, but there are no absolute GI contraindications to continuing anticoagulation. 7. Follow daily LFTs and would check a viral hepatitis panel, VIKI and iron studies. I will continue to follow this patient and make further recommendations based on his clinical course and results of repeat blood work. Problem List: 1. Rapid atrial fibrillation 2. Elevated troponin Copies To: QUINTEN JACOBS,TIMOTHY Consult Acknowledgment - Thank you for your consult request.
--- NOTE | 2017-01-06 19:36 | ECHOCARDIOGRAM REPORT ---
YARON SANTIAGO Age: 56 : 1960 Gender: M Exam Date: 01/06/2017 10:46 Exam Location: [address] [facility] Ht (in): 70 Wt (lb): 200 BSA: 2.14 BP: 100 / 62 Ordering Physician: ANIBAL ALBERTS M Referring Physician: ANIBAL ALBERTS MD Technologist: Omar Winters [facility] Room Number: 189-1 Indications: AFIB/FLUTTER Rhythm: Atrial fibrillation Technical Quality: FINDINGS Left Ventricle Moderate left ventricular dilatation. No left ventricular hypertrophy. Severely reduced global left ventricular systolic function. Left ventricular ejection fraction is estimated at 20 %. Right Ventricle Normal right ventricular size. Mildly reduced right ventricular global systolic function. Right Atrium Mild to moderate right atrial dilatation. Left Atrium Mild to moderate left atrial dilatation. Mitral Valve Structurally normal mitral valve. Moderate mitral regurgitation. Aortic Valve No aortic stenosis. Trileaflet aortic valve. Tricuspid Valve Structurally normal tricuspid valve. Mild tricuspid regurgitation. Right ventricular systolic pressure estimated at > 45 mmHg. Pulmonic Valve Pulmonic valve not well visualized, grossly normal. Pericardium Minimal pericardial effusion (normal variant). Great Vessels Normal size aortic root. IVC 2.6 cm. CONCLUSIONS Moderate left ventricular dilatation. No left ventricular hypertrophy. Severely reduced global left ventricular systolic function. Left ventricular ejection fraction is estimated at 20 %. Normal right ventricular size. Mildly reduced right ventricular global systolic function. Mild to moderate right atrial dilatation. Mild to moderate left atrial dilatation. Moderate mitral regurgitation. Right ventricular systolic pressure estimated at > 45 mmHg. Minimal pericardial effusion (normal variant). Normal size aortic root. IVC 2.6 cm. Tony Fitzgerald M.D. (Electronically Signed) Final Date: 06 January 2017 19:35 MEASUREMENTS (Male / Female) Normal Values 2D ECHO LV Diastolic Diameter PLAX 7.1 cm 4.2 - 5.9 / 3.9 - 5.3 cm LV Systolic Diameter PLAX 6.4 cm 2.1 - 4.0 cm LV Fractional Shortening PLAX 9.9 % 25 - 46 % LV Ejection Fraction 2D Teich 20.9 % IVS Diastolic Thickness 0.9 cm LVPW Diastolic Thickness 1.0 cm LV Relative Wall Thickness 0.3 RV Internal Dim ED PLAX 3.5 cm 1.9 - 3.8 cm LVOT Diameter 2.0 cm Aortic Root Diameter 2.9 cm LA Systolic Diameter LX 4.8 cm 3.0 - 4.0 / 2.7 - 3.8 cm LA Volume 156.0 cm 18 - 58 / 22 - 52 cm Ascending Aorta Diameter 3.3 cm DOPPLER AV Peak Velocity 131.0 cm/s AV Peak Gradient 6.9 mmHg AV Mean Velocity 99.9 cm/s AV Mean Gradient 4.0 mmHg AV Velocity Time Integral 25.3 cm LVOT Peak Velocity 103.0 cm/s LVOT Peak Gradient 4.2 mmHg LVOT Mean Velocity 71.6 cm/s LVOT Mean Gradient 2.0 mmHg LVOT Velocity Time Integral 19.9 cm LVOT Stroke Volume 62.5 cm AV Area Cont Eq vti 2.5 cm AV Area Cont Eq pk 2.5 cm MV Peak Velocity 152.0 cm/s MV Peak Gradient 9.2 mmHg MV Mean Velocity 83.3 cm/s MV Mean Gradient 4.0 mmHg Mitral E Point Velocity 137.0 cm/s MV PHT Velocity 158.0 cm/s MV Deceleration [place]field 772.0 cm/s MV Pressure Half Time 61.4 ms MV Area PHT 3.6 cm MV Deceleration Time 88.0 ms MR Peak Velocity 557.5 cm/s MR Peak Gradient 124.3 mmHg TR Peak Velocity 313.0 cm/s TR Peak Gradient 39.2 mmHg Right Atrial Pressure 10.0 mmHg Pulmonary Artery Systolic Pressu 49.2 mmHg Right Ventricular Systolic Press 49.2 mmHg PV Peak Velocity 66.2 cm/s PV Peak Gradient 1.8 mmHg PV Mean Velocity 43.9 cm/s PV Mean Gradient 1.0 mmHg PV Velocity Time Integral 12.2 cm LV E' Septal Velocity 5.7 cm/s Mitral E to LV E' Septal Ratio 24.2
[2017-01-07 02:15] LABS: PTT 43 SEC (25-37)
--- NOTE | 2017-01-07 07:01 | PN- Housestaff ---
See Addendum Subjective Follow-up For: Atrial fibrillation with RVR Elevated troponins Abdominal pain, etiology unknown Transaminitis with ascites ETOH dependance Subjective: Patient seen and examined at bedside this AM. He reports he slept well, though he has continued abdominal pain that acutely worsened with a large bolus of food at dinner time last night. Patient was instructed smaller bites with smaller meals would be more beneficial as well as continuing laxative regimen. Patient currently denies any cardiac symptoms, including orthopnea, peripheral edema, chest pain or palpitations. Patient also denies symptoms of ETOH withdrawl. Of note, patient was somewhat hostile to evening nurse and was not given his 12am dose of cardizem. Review of Systems Constitutional: Denies: chills, fever. EENTM: Denies: visual changes, nasal congestion. Cardiovascular: Denies: chest pain, edema, orthopena, palpitations, peripheral edema. Respiratory: Denies: cough, short of breath, wheezing. Gastrointestinal: Reports: see HPI, abdominal pain. Denies: diarrhea, nausea, bloody stool, vomiting. Genitourinary: Denies: dysuria, hematuria. Musculoskeletal: Reports: muscle pain (Epigastric/RUQ). Skin: Denies: rash. Neurological/Psychological: Denies: confusion, headache. Hematologic/Endocrine: Denies: bleeding. Immunologic/Allergic: Denies: splenectomy. Objective Last 24 Hrs of Vital Signs/I&O Vital Signs Date Time Temp Pulse Resp B/P Pulse O2 O2 Flow FiO2 Ox Delivery Rate 01/07 0530 110 100/60 01/06 2340 98.0 121 21 100/60 97 Room Air 01/06 2200 130 01/06 2000 112 01/06 1800 99 01/06 1757 89 106/62 01/06 1600 98.5 80 20 106/62 01/06 1600 98.5 80 20 106/62 92 Room Air 01/06 1424 Room Air Room Air 01/06 1400 98 01/06 1215 101 104/70 01/06 1200 105 01/06 1000 106 20 104/60 01/06 0809 98.1 77 18 100/60 95 Room Air Intake & Output 01/07 1600 01/07 0800 01/07 0000 Intake Total 936 Output Total 650 Balance 286 Intake, IV 376 Intake, Oral 560 Output, Urine 650 Physical Exam General Appearance: Alert, Oriented X3, Cooperative, No Acute Distress Skin: No Rashes, No Significant Lesion HEENT: Atraumatic, PERRLA, Mucous Membr. moist/pink Neck: Supple, +2 Carotid Pulse wo Bruit Lymphatic: Cervical nl Cardiovascular: Irregularly irregular. Lungs: Clear to Auscultation, Normal Air Movement Abdomen: Normal Bowel Sounds, Soft, Epigastric and RUQ pain to mild, moderate and deep palpation. + lipoma vs hernia midline abdomen in epigastric region, slightly more prominent on flexion of abdomen. Neurological: Normal Gait, Normal Speech, Strength at 5/5 X4 Ext, Normal Tone Extremities: No Clubbing, No Cyanosis, No Edema Vascular: Pulses Symmetrical Current Medications: Current Medications Sig/Anthony Start time Last Medication Dose Route Stop Time Status Admin Acetaminophen 650 MG Q6P PRN 01/05 2215 DC PO Dextrose/Sodium 1,000 ML Q20H 01/06 1045 DC 01/06 Chloride IV 1215 Diltiazem HCl 30 MG Q6 01/06 1200 AC 01/07 PO 0530 Diltiazem HCl 125 MG Q24H 01/06 0630 DC 01/06 Sodium Chloride 100 ML IV 0637 Heparin Sodium/ 25,000 UNIT Q24H 01/06 0630 AC 01/06 Dextrose IV 1541 Dextrose/Water 500 ML Magnesium Citrate 300 ML ONE ONE 01/065 DC 01/06 PO 01/06 204 2152 Omeprazole 40 MG DAILY AC 01/06 1550 AC 01/07 PO 0531 Polyethylene Glycol 17 GM DAILY 01/06 1551 AC 01/06 PO 1704 Last 24 Hrs of Lab/Armond Results Last 24 Hrs of Labs/Mics: Laboratory Tests 01/07/17 0645: Anion Gap 7, Estimated GFR > 60, BUN/Creatinine Ratio 10.0, Total Bilirubin 0.4, Direct Bilirubin 0.3, AST 98 H, ALT 212 H, Alkaline Phosphatase 85, Total Protein 4.7 L, Albumin 2.7 L, CBC w Diff NO MAN DIFF REQ, RBC 3.95 L, MCV 83.3, MCH 28.2, RDW 13.6, MPV 9.4, Gran % 59.0, Lymphocytes % 30.6, Monocytes % 8.4, Eosinophils % 1.3, Basophils % 0.7, Absolute Granulocytes 3.8, Absolute Lymphocytes 2.0, Absolute Monocytes 0.5, Absolute Eosinophils 0.1, Absolute Basophils 0, PUBS MCHC 33.9, Hepatitis A IgM Ab Pending, Hep Bs Antigen Pending, Hep B Core IgM Ab Conf Pending, Hepatitis C Antibody Pending 01/07/17 0140: APTT 43 H 01/06/17 1200: APTT 70 H 01/06/17 1130: Troponin I Cancelled Orders ECHO Findings: CONCLUSIONS Moderate left ventricular dilatation. No left ventricular hypertrophy. Severely reduced global left ventricular systolic function. Left ventricular ejection fraction is estimated at 20 %. Normal right ventricular size. Mildly reduced right ventricular global systolic function. Mild to moderate right atrial dilatation. Mild to moderate left atrial dilatation. Moderate mitral regurgitation. Right ventricular systolic pressure estimated at > 45 mmHg. Minimal pericardial effusion (normal variant). Normal size aortic root. IVC 2.6 cm. Miscellaneous Findings: Chest CTA: IMPRESSION: 1. Normal CT of thoracic and abdominal aorta. No dissection 2. Scattered groundglass and nodular airspace opacities in the lungs bilateral. Would favor an infectious or inflammatory etiology. 3. Abdominal ascites. Assessment/Plan Assessment: Mr. Ferrera is a 56 year old male with no significant past medical history and past social history of possible ETOH dependance who presented to the [place] ED on 01/05/17 with chief complaint of GERD-like symptoms for approximately 2 days. Patient reports that he was eating pizza and noticed this became "stuck" by his abdominal hernia, after which he took gas-x without relief. Associated symptoms included decreased oral intake secondary to abdominal pain and mild palpitaitons with chest discomfort. In the ED: Vital signs showed T 97.3, HR 120, RR 18, BP 133/83 and O2 saturation of 96% on RA. Labs showed WBC 14.7, H&H 12.6/37.7, Plt 227, Na 134 and otherwise unremarkable BEP. Troponin 0.11. Amylase/lipase WNL. TSH 2.18. INR 1.35. Alcohol <10. EKG showed atrial fibrillation with RVR, HR 147, QRS [address] chest/ abdomen/pelvis showed no dissection of aorta, groundglass airspace disease and abdominal ascites. Patient is admitted to the telemetry floor and the following is the management: 1. New onset atrial fibrillation with RVR * CHADS-Vasc 1 (1 point for CHF as noted on echocardiogram) * Patient initially started on IV heparin drip as well as IV cardizem drip (IV cardizem drip has since been discontinued) * Discontinue 30 mg PO cardizem Q6, start patient on metoprolol 12.5 mg PO Q6 with a one time dose of 0.5 mg IV digoxin NOW * Hopefully these two new medications will allow tapering off of cardizem drip * 0.125 mg PO digoxin to begin starting tomorrow 01/08 for better rate control * Continue heparin drip for now, patient will require at least 30 days anticoagulation after cardioversion * TIEN cardioversion to be done Tuesday, 01/10 so patient will be NPO Tuesday night * Echo obtained yesterday showed systolic dysfunction, LVEF 20% and severely decreased global left ventricular systolic function 2. Positive troponins * Likely represent demand ischemia in setting of atrial fibrillation with RVR * Troponin shows flat curve at 0.11 without peak, more consistent with demand ischemia 3. Epigastric pain with transaminitis and ascites * On admission, patient had abdominal/pelvis CTA that showed abdominal ascites * IR suggested moderate risk of paracentesis given close proximity to liver, will not proceed with diagnostic paracentesis * Continue to follow GI recommendations * F/U RUQ abdominal US * Diet advanced to low sodium, high fiber diet which has been done * Protonix 40 mg PO daily contined, mirlax for consitpation * Vital hepatitis panel nonreactive , VIKI negative and iron studies showed low iron/% saturation (consider adding Fe once abdominal pain improves) * Follow daily LFTs (trending down from admission) 4. ETOH dependance * Patient placed on CIWA scale * CIWA has been 0-2 since admission * Consulted patient on abstinence from ETOH and he acknowledged understanding * Social work consult placed, f/u rec's FULL CODE DVTP: IV heparin Problem List: 1. Rapid atrial fibrillation 2. Elevated troponin 3. Alcohol dependence 4. Abdominal pain 5. Ascites 6. Transaminitis Pain Ratin Pain Location: Epigastric region on palpation. Pain Goal: Pain 7 or less Pain Plan: Small frequent meals, laxatives. No tylenol in the setting of transaminitis. Tomorrow's Labs & Rationales: CBC (heparin therapy)
[2017-01-07 07:46] LABS: ABSOLUTE BASOPHIL COUNT 0 /CUMM (0.0-0.2); ABSOLUTE EOSINOPHIL COUNT 0.1 /CUMM (0.0-0.7); ABSOLUTE GRANULOCYTE CT 3.8 /CUMM (1.4-6.5); ABSOLUTE MONOCYTE COUNT 0.5 /CUMM (0.10-0.60); BASOPHIL % 0.7 % (0.0-2.0); EOSINOPHIL % 1.3 % (0-5); HEMATOCRIT 32.9 % (42-52); MEAN CORPUSCULAR HGB 28.2 PG (27.0-31.0); MEAN CORPUSCULAR HGB CONC 33.9 G/DL (33.0-37.0); MEAN CORPUSCULAR VOLUME 83.3 FL (80.0-94.0); MEAN PLATELET VOLUME 9.4 FL (7.4-10.4); PLATELET COUNT 145 /CUMM (130-400); RBC DISTRIBUTION WIDTH 13.6 % (11.5-14.5); RED BLOOD CELL CT 3.95 /CUMM (4.70-6.10); WHITE BLOOD CELL COUNT 6.5 /CUMM (4.8-10.8)
[2017-01-07 08:34] VITALS: BP 121/91
--- NOTE | 2017-01-07 08:44 | PN- Gastroenterology ---
Assessment/Plan Assessment/Recommendations: Assessment: Mr. Ferrera is a 56-year-old male who presented to [facility] with complaints of diffuse abdominal pain and admitted for rapid atrial fibrillation and has since been started on IV Cardizem and IV heparin. The etiology of his abdominal pain remains unclear, but considering his reports of accompanying constipation and an unremarkable ct scan I suspect a benign/ functional etiology such as IBS with the pain being from bowel spasm albeit the location of this is a bit atypical. An endoscopic work up should ultimatley be pursued to further evaluate his complaints, but considering he is without any concerning GI warning signs and is currently getting anticoagulated for afib I feel this can safely be done as an outpatient. Of note, his echocardiogram yesterday did show an EF of only 20% so as his LFTs are now improving I suspect the increase may have been secondary to passive congestion. A passed gallstone could also potentially explain his pain and increased LFTs, but this should give some accompanying increase in his alk phos and/or bilirubin and his was normal. He was also without any obvious billiary pathology on his ct scan, but considering his reports of upper abdominal pain after eating it would be reasonable to check an US to rule out gallstones as this can be missed by ct scan. Recognitions: 1. Advance to a low-sodium, high-fiber diet as tolerated. 2. Use bentyl as needed for pain 3. Check a RUQ US. 4. Continue oral omeprazole. 5. Contineue standing order MiraLAX for constipation. 6. Treatment of atrial fibrillation as per cardiology, but there are no absolute GI contraindications to continuing anticoagulation. 7. Follow daily LFTs and would check a viral hepatitis panel, VIKI and iron studies. I will continue to follow this patient and make further recommendations based on his clinical course and results of repeat blood work. Problem List: 1. Abdominal pain 2. Transaminitis Subjective Subjective: Patient tolerated breakfast this morning without any significant abdominal pain. He has been without any vomiting. He was given a bottle of magnesium citrate last night for constipation, but is yet to have a bowel movement. s/p echo yesterday. He is still quite concerned about his abdominal pain. He refused his diltiazem this morning. Objective Vital Signs and I&Os Vital Signs Date Time Temp Pulse Resp B/P Pulse O2 O2 Flow FiO2 Ox Delivery Rate 01/07 0834 98.4 114 16 121/91 95 Room Air 02/17 0530 110 100/60 01/06 2340 98.0 121 21 100/60 97 Room Air 01/06 2200 130 01/06 2000 112 01/06 1800 99 01/06 1757 89 106/62 01/06 1600 98.5 80 20 106/62 01/06 1600 98.5 80 20 106/62 92 Room Air 01/06 1424 Room Air Room Air 01/06 1400 98 01/06 1215 101 104/70 01/06 1200 105 01/06 1000 106 20 104/60 Intake & Output 01/07 1600 01/07 0400 01/06 1600 01/06 0400 01/05 1600 01/05 0400 Intake Total 936 1488 1000 Output Total 650 550 Balance 735 698 3228 Intake, IV 381 050 3978 Intake, Oral 560 840 Output, Urine 650 550 Patient 200 lb Weight Physical Exam General Appearance: well developed/nourished, no apparent distress, alert, comfortable Head: atraumatic, normal appearance Ears, Nose, Throat: normal pharynx, normal ENT inspection Neck: normal inspection, supple, full range of motion Respiratory: normal breath sounds, chest non-tender Cardiovascular: tachycardia, irregularly irregular Abdomen: normal bowel sounds, soft, tenderness Back: normal inspection, normal range of motion Extremities: normal inspection, normal capillary refill Current Medications: Current Medications Sig/Anthony Start time Last Medication Dose Route Stop Time Status Admin Acetaminophen 650 MG Q6P PRN 01/05 2215 DC PO Dextrose/Sodium 1,000 ML Q20H 01/06 1045 DC 01/06 Chloride IV 1215 Diltiazem HCl 30 MG Q6 01/06 1200 AC 01/07 PO 0530 Diltiazem HCl 125 MG Q24H 01/06 0630 DC 01/06 Sodium Chloride 100 ML IV 0637 Heparin Sodium/ 25,000 UNIT Q24H 01/06 0630 AC 01/06 Dextrose IV 1541 Dextrose/Water 500 ML Magnesium Citrate 300 ML ONE ONE 01/06 2045 DC 01/06 PO 01/06 2046 215 Omeprazole 40 MG DAILY AC 01/06 1550 AC 01/07 PO 0531 Polyethylene Glycol 17 GM DAILY 01/06 1551 AC 01/06 PO 1704 Results Pertinent Lab Results: Laboratory Tests 01/07 01/07 01/06 0645 0140 1200 Chemistry Sodium (137 - 145 mmol/L) 137 Potassium (3.5 - 5.1 mmol/L) 4.0 Chloride (98 - 107 mmol/L) 106 Carbon Dioxide (22 - 30 mmol/L) 24 Anion Gap (5 - 16) 7 BUN (9 - 20 mg/dL) 9 Creatinine (0.7 - 1.2 mg/dL) 0.9 Estimated GFR (>60 ml/min) > 60 BUN/Creatinine Ratio (7 - 25 %) 10.0 Total Bilirubin (0.2 - 1.3 mg/dL) 0.4 Direct Bilirubin (< 0.4 mg/dL) 0.3 AST (17 - 59 U/L) 98 H ALT (21 - 72 U/L) 212 H Alkaline Phosphatase (< 127 U/L) 85 Total Protein (6.3 - 8.2 g/dL) 4.7 L Albumin (3.5 - 5.0 g/dL) 2.7 L Coagulation APTT (25 - 37 SEC) 43 H 70 H Hematology CBC w Diff NO MAN DIFF REQ WBC (4.8 - 10.8 /CUMM) 6.5 RBC (4.70 - 6.10 /CUMM) 3.95 L Hgb (14.0 - 18.0 G/DL) 11.1 L Hct (42 - 52 %) 32.9 L MCV (80.0 - 94.0 FL) 83.3 MCH (27.0 - 31.0 PG) 28.2 RDW (11.5 - 14.5 %) 13.6 Plt Count (130 - 400 /CUMM) 145 MPV (7.4 - 10.4 FL) 9.4 Gran % (42.2 - 75.2 %) 59.0 Lymphocytes % (20.5 - 51.1 %) 30.6 Monocytes % (1.7 - 9.3 %) 8.4 Eosinophils % (0 - 5 %) 1.3 Basophils % (0.0 - 2.0 %) 0.7 Absolute Granulocytes (1.4 - 6.5 /CUMM) 3.8 Absolute Lymphocytes (1.2 - 3.4 /CUMM) 2.0 Absolute Monocytes (0.10 - 0.60 /CUMM) 0.5 Absolute Eosinophils (0.0 - 0.7 /CUMM) 0.1 Absolute Basophils (0.0 - 0.2 /CUMM) 0 PUBS MCHC (33.0 - 37.0 G/DL) 33.9 Serology Hepatitis A IgM Ab (NONREACTIVE) Pending Hep Bs Antigen (NONREACTIVE) Pending Hep B Core IgM Ab Conf (NONREACTIVE) Pending Hepatitis C Antibody (NONREACTIVE) Pending 01/06 01/06 3852 [id number] Chemistry Sodium (137 - 145 mmol/L) 136 L Potassium (3.5 - 5.1 mmol/L) 4.2 Chloride (98 - 107 mmol/L) 107 Carbon Dioxide (22 - 30 mmol/L) 22 Anion Gap (5 - 16) 7 BUN (9 - 20 mg/dL) 12 Creatinine (0.7 - 1.2 mg/dL) 1.0 Estimated GFR (>60 ml/min) > 60 BUN/Creatinine Ratio (7 - 25 %) 12.0 Iron (49 - 181 ug/dL) 44 L TIBC (261 - 462 ug/dL) 302 % Saturation (16 - 45 %) 14 L Ferritin (17.9 - 464 ng/mL) 128.0 Troponin I (<0.11 ng/ml) Cancelled 0.11 *H Coagulation APTT (25 - 37 SEC) 41 H Hematology CBC w Diff NO MAN DIFF REQ WBC (4.8 - 10.8 /CUMM) 7.6 RBC (4.70 - 6.10 /CUMM) 3.87 L Hgb (14.0 - 18.0 G/DL) 10.7 L Hct (42 - 52 %) 32.4 L MCV (80.0 - 94.0 FL) 83.8 MCH (27.0 - 31.0 PG) 27.7 RDW (11.5 - 14.5 %) 13.5 Plt Count (130 - 400 /CUMM) 161 MPV (7.4 - 10.4 FL) 9.3 Gran % (42.2 - 75.2 %) 58.6 Lymphocytes % (20.5 - 51.1 %) 32.1 Monocytes % (1.7 - 9.3 %) 7.7 Eosinophils % (0 - 5 %) 1.0 Basophils % (0.0 - 2.0 %) 0.6 Absolute Granulocytes (1.4 - 6.5 /CUMM) 4.4 Absolute Lymphocytes (1.2 - 3.4 /CUMM) 2.4 Absolute Monocytes (0.10 - 0.60 /CUMM) 0.6 Absolute Eosinophils (0.0 - 0.7 /CUMM) 0.1 Absolute Basophils (0.0 - 0.2 /CUMM) 0 PUBS MCHC (33.0 - 37.0 G/DL) 33.1 Immunology VIKI Titer Pending Anti-Nuclear Antibody Pending 01/06 01/06 01/06 0200 0030 0030 Chemistry Lactic Acid (0.7 - 2.1 mmol/L) 1.0 Troponin I (<0.11 ng/ml) 0.11 *H Urines Urine Color (YEL,AMB,STR) YEL Urine Clarity (CLEAR) CLEAR Urine pH (5.0 - 8.0) 6.0 Ur Specific [place] (1.001 - 1.035) 1.010 Urine Protein (NEG,<30 MG/DL) NEG Urine Ketones (NEG) NEG Urine Nitrite (NEG) NEG Urine Bilirubin (NEG) NEG Urine Urobilinogen (0.1 - 1.0 EU/dl) 0.2 Ur Leukocyte Esterase (NEG) NEG Ur Microscopic EXAM NOT REQUIRED Urine Hemoglobin (NEG) NEG Urine Glucose (N MG/DL) NEG 01/05 1800 Chemistry Sodium (137 - 145 mmol/L) 134 L Potassium (3.5 - 5.1 mmol/L) 4.8 Chloride (98 - 107 mmol/L) 101 Carbon Dioxide (22 - 30 mmol/L) 24 Anion Gap (5 - 16) 9 BUN (9 - 20 mg/dL) 14 Creatinine (0.7 - 1.2 mg/dL) 1.1 Estimated GFR (>60 ml/min) > 60 BUN/Creatinine Ratio (7 - 25 %) 12.7 Glucose (65 - 99 mg/dL) 108 H Lactic Acid (0.7 - 2.1 mmol/L) 1.8 Calcium (8.4 - 10.2 mg/dL) 9.0 Total Bilirubin (0.2 - 1.3 mg/dL) 1.0 AST (17 - 59 U/L) 249 H ALT (21 - 72 U/L) 309 H Alkaline Phosphatase (< 127 U/L) 114 Troponin I (<0.11 ng/ml) 0.11 *H Total Protein (6.3 - 8.2 g/dL) 5.7 L Albumin (3.5 - 5.0 g/dL) 3.5 Globulin (1.9 - 4.2 gm/dL) 2.2 Albumin/Globulin Ratio (1.1 - 2.2 %) 1.6 Amylase (30 - 110 U/L) < 30 L Lipase (23 - 300 U/L) 51 TSH (0.270 - 4.200 uIU/mL) 2.180 Coagulation PT (9.4 - 12.5 SEC) 14.1 H INR (0.90 - 1.17) 1.35 H APTT (25 - 37 SEC) 27 Hematology CBC w Diff NO MAN DIFF REQ WBC (4.8 - 10.8 /CUMM) 14.7 H RBC (4.70 - 6.10 /CUMM) 4.55 L Hgb (14.0 - 18.0 G/DL) 12.6 L Hct (42 - 52 %) 37.7 L MCV (80.0 - 94.0 FL) 82.8 MCH (27.0 - 31.0 PG) 27.5 RDW (11.5 - 14.5 %) 13.4 Plt Count (130 - 400 /CUMM) 227 MPV (7.4 - 10.4 FL) 9.3 Gran % (42.2 - 75.2 %) 81.9 H Lymphocytes % (20.5 - 51.1 %) 11.2 L Monocytes % (1.7 - 9.3 %) 6.6 Eosinophils % (0 - 5 %) 0.1 Basophils % (0.0 - 2.0 %) 0.2 Absolute Granulocytes (1.4 - 6.5 /CUMM) 12.1 H Absolute Lymphocytes (1.2 - 3.4 /CUMM) 1.7 Absolute Monocytes (0.10 - 0.60 /CUMM) 1.0 H Absolute Eosinophils (0.0 - 0.7 /CUMM) 0 Absolute Basophils (0.0 - 0.2 /CUMM) 0 PUBS MCHC (33.0 - 37.0 G/DL) 33.3 Toxicology Serum Alcohol (<10 MG/DL) < 10.0 Imaging/Other Studies: echocardiogram: CONCLUSIONS Moderate left ventricular dilatation. No left ventricular hypertrophy. Severely reduced global left ventricular systolic function. Left ventricular ejection fraction is estimated at 20 %. Normal right ventricular size. Mildly reduced right ventricular global systolic function. Mild to moderate right atrial dilatation. Mild to moderate left atrial dilatation. Moderate mitral regurgitation. Right ventricular systolic pressure estimated at > 45 mmHg. Minimal pericardial effusion (normal variant). Normal size aortic root. IVC 2.6 cm.
[2017-01-07 13:15] LABS: PTT 73 SEC (25-37)
[2017-01-07 16:20] VITALS: BP 111/74
--- NOTE | 2017-01-07 17:06 | PN- Att Addend ---
Attending Addendum Attending Brief Note 1. New onset atrial fibrillation with rapid ventricular response 2. Minimal troponin elevation, nonspecific with flat troponin curve 3. Newly diagnosed severe systolic dysfunction 4. Abdominal pain with ascites 5. Abnormal LFTs Still with intermittent abdominal discomfort. GI following and RUQ US is pending. 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 We have stopped Oral Cardizem and started low dose B-booker. We have added Digoxin for additional rate control given soft BP and Cardizem gtt should be weaned off as tolerated. Will need ODALIS-I at some point but hold for now. Will titrate up B-booker dose as BP tolerates. Continue on IV Heparin. Given the severe cardiomyopathy it is now important to try and restore SR. Will plan for TIEN/Cardioversion on Tuesday if no invasive GI procedures are planned. I have personally seen and examined this patient. I have personally reviewed all relevant imaging and laboratory data. I have discussed the case with the care team. Roberto Fitzgerald MD [facility]
--- NOTE | 2017-01-07 17:16 | ULTRASOUND REPORT ---
EXAMINATION: US ABDOMEN LIMITED CLINICAL INFORMATION: Severe abdominal pain, ascites, transaminitis. Right upper quadrant ultrasound for gallstones, liver evaluation. COMPARISON: CT of the abdomen and pelvis 01/05/2017. TECHNIQUE: Real-time imaging of the right upper quadrant abdominal viscera. FINDINGS: PANCREAS: The head and body are unremarkable. The tail is obscured by gas. LIVER: Normal. The liver demonstrates normal size, contour and echogenicity. No focal lesion or intrahepatic biliary duct dilatation. GALLBLADDER: Normal. The gallbladder is physiologically distended without evidence of stones, sludge, polyps, wall thickening or pericholecystic fluid. COMMON BILE DUCT: Normal in caliber measuring 0.4 cm in diameter. RIGHT KIDNEY: Normal. No hydronephrosis. No renal calculi or focal parenchymal lesions. The kidney measures 13.2 cm in maximum dimension. FREE FLUID: There is a small amount of ascites in the right upper quadrant and left upper quadrants. IMPRESSION: 1. Small amount of ascites. 2. No evidence of cholelithiasis or cholecystitis. 3. Unremarkable liver.
[2017-01-07 22:00] VITALS: BP 94/60
[2017-01-08] VITALS: BP 106/70
[2017-01-08 00:21] VITALS: BP 106/70
[2017-01-08 01:38] LABS: PTT 83 SEC (25-37)
[2017-01-08 04:00] VITALS: BP 104/70
[2017-01-08 06:00] VITALS: BP 106/60
[2017-01-08 08:12] VITALS: BP 120/76
[2017-01-08 08:16] LABS: ABSOLUTE BASOPHIL COUNT 0 /CUMM (0.0-0.2); ABSOLUTE EOSINOPHIL COUNT 0.1 /CUMM (0.0-0.7); ABSOLUTE GRANULOCYTE CT 3.8 /CUMM (1.4-6.5); ABSOLUTE LYMPH COUNT 2.2 /CUMM (1.2-3.4); ABSOLUTE MONOCYTE COUNT 0.5 /CUMM (0.10-0.60); BASOPHIL % 0.6 % (0.0-2.0); EOSINOPHIL % 1.8 % (0-5); GRANULOCYTE % 56.9 % (42.2-75.2); HEMATOCRIT 34.6 % (42-52); MEAN CORPUSCULAR HGB 27.9 PG (27.0-31.0); MEAN CORPUSCULAR HGB CONC 33.2 G/DL (33.0-37.0); MEAN CORPUSCULAR VOLUME 84.2 FL (80.0-94.0); MEAN PLATELET VOLUME 9.3 FL (7.4-10.4); PLATELET COUNT 153 /CUMM (130-400); RBC DISTRIBUTION WIDTH 13.9 % (11.5-14.5); RED BLOOD CELL CT 4.11 /CUMM (4.70-6.10); WHITE BLOOD CELL COUNT 6.7 /CUMM (4.8-10.8)
--- NOTE | 2017-01-08 08:22 | PN- Housestaff ---
Subjective Follow-up For: Atrial fibrillation with RVR Elevated troponins Abdominal pain, etiology unknown Transaminitis with ascites ETOH dependance Tele-Events Since Last Visit: Atrial fibrillation with HR generally 80-100s but noted episodes of tachycardia into the 130s for brief periods of time. Subjective: Patient seen and examined at bedside this AM. He is slightly hostile due to the fact that abdominal workup has thus far been negative with no clear etiology of abdominal pain. On explanation that cardiac issues are very important to address , he is frustrated that we are trying new medications daily. Otherwise, he reports his abdominal pain is much better and only exacerbates with eating or rolling over in bed. He denies chest pain or any other complaint. Review of Systems Constitutional: Denies: chills, fever. EENTM: Denies: blurred vision, nasal congestion. Cardiovascular: Denies: chest pain, orthopena, palpitations, peripheral edema. Respiratory: Denies: cough, short of breath, sputum production. Gastrointestinal: Reports: abdominal pain. Denies: constipation, diarrhea, nausea, vomiting. Genitourinary: Denies: dysuria. Musculoskeletal: Denies: back pain. Skin: Denies: rash. Neurological/Psychological: Denies: confusion, headache. Hematologic/Endocrine: Denies: bruising, bleeding. Objective Last 24 Hrs of Vital Signs/I&O Vital Signs Date Time Temp Pulse Resp B/P Pulse O2 O2 Flow FiO2 Ox Delivery Rate 01/08 0812 97.9 82 18 120/76 93 Room Air 01/08 0642 80 104/70 01/08 0600 80 16 106/60 01/08 0400 80 16 104/70 01/08 0035 100 106/70 01/08 0021 92.1 85 20 106/70 93 Room Air 01/08 0000 80 16 106/70 01/07 2247 98 Room Air Room Air 01/07 2200 98.7 107 18 94/60 01/07 1837 98 108/62 01/07 1620 97.1 81 16 111/74 99 Room Air 01/07 1414 91 120/54 01/07 1242 90 01/07 1232 95 Room Air Room Air Intake & Output 01/08 1600 01/08 0800 01/08 0000 Intake Total 200 750 Output Total 1300 1100 Balance -1100 -350 Intake, IV 250 Intake, Oral 200 500 Output, Urine 1300 1100 Physical Exam General Appearance: Alert, Oriented X3, Cooperative, No Acute Distress Skin: No Rashes, No Significant Lesion HEENT: Atraumatic, PERRLA, EOMI, Mucous Membr. moist/pink Neck: No JVD Lymphatic: Cervical nl Cardiovascular: Irregularly irregular, tachycardia Lungs: Clear to Auscultation, Normal Air Movement Abdomen: Normal Bowel Sounds, Patient refuses palpation of abdomen secondary to concern for pain. Neurological: Normal Gait, Normal Speech Extremities: No Clubbing, No Cyanosis, No Edema Vascular: Pulses Symmetrical Current Medications: Current Medications Sig/Anthony Start time Last Medication Dose Route Stop Time Status Admin Dicyclomine HCl 20 MG 4 TIMES/DAY PRN 01/07 0900 AC 01/07 PO 1242 Digoxin 0.125 MG 1700 01/08 1700 AC PO Digoxin 0.5 MG ONCE ONE 01/07 1130 DC 01/07 IV 01/07 1131 1242 Diltiazem HCl 125 MG Q24H 01/07 0900 DC 01/07 Sodium Chloride 100 ML IV 0950 Diltiazem HCl 30 MG Q6 01/06 1200 NM 01/07 PO 0530 Heparin Sodium/ 25,000 UNIT Q24H 01/06 0630 AC 01/07 Dextrose IV 2046 Dextrose/Water 500 ML Metoprolol Tartrate 12.5 MG Q6 01/07 1200 AC 01/08 PO 0642 Omeprazole 40 MG DAILY AC 01/06 1550 AC 01/08 PO 0642 Polyethylene Glycol 17 GM DAILY 01/06 1551 AC 01/06 PO 1704 Last 24 Hrs of Lab/Armond Results Last 24 Hrs of Labs/Mics: Laboratory Tests 01/08/17 0640: Total Bilirubin 0.3, Direct Bilirubin 0.2, AST 57, ALT 174 H, Alkaline Phosphatase 79, Total Protein 4.8 L, Albumin 2.8 L, CBC w Diff NO MAN DIFF REQ , RBC 4.11 L, MCV 84.2, MCH 27.9, RDW 13.9, MPV 9.3, Gran % 56.9, Lymphocytes % 32.9, Monocytes % 7.8, Eosinophils % 1.8, Basophils % 0.6, Absolute Granulocytes 3.8, Absolute Lymphocytes 2.2, Absolute Monocytes 0.5, Absolute Eosinophils 0.1, Absolute Basophils 0, PUBS MCHC 33.2 01/08/17 0045: APTT 83 H 01/07/17 1151: APTT 73 H Assessment/Plan Assessment: Mr. Ferrera is a 56 year old male with no significant past medical history and past social history of possible ETOH dependance who presented to the [facility] ED on 01/05/17 with chief complaint of GERD-like symptoms for approximately 2 days. Patient reports that he was eating pizza and noticed this became "stuck" by his abdominal hernia, after which he took gas-x without relief. Associated symptoms included decreased oral intake secondary to abdominal pain and mild palpitaitons with chest discomfort. In the ED: Vital signs showed T 97.3, HR 120, RR 18, BP 133/83 and O2 saturation of 96% on RA. Labs showed WBC 14.7, H&H 12.6/37.7, Plt 227, Na 134 and otherwise unremarkable BEP. Troponin 0.11. Amylase/lipase WNL. TSH 2.18. INR 1.35. Alcohol <10. EKG showed atrial fibrillation with RVR, HR 147, QRS [address] chest/ abdomen/pelvis showed no dissection of aorta, groundglass airspace disease and abdominal ascites. Patient is admitted to the telemetry floor and the following is the management: 1. New onset atrial fibrillation with RVR * CHADS-Vasc 1 (1 point for CHF as noted on echocardiogram) * Patient initially started on IV heparin drip as well as IV cardizem drip (IV cardizem drip has since been discontinued) * Discontinued 30 mg PO cardizem Q6 as well as IV cardizem drip, patient continued on metoprolol 12.5 mg PO Q6 with a one time dose of 0.5 mg IV digoxin yesterday * 0.125 mg PO digoxin to begin starting today 01/08 for better rate control * Will f/u any further cardio rec's on rate control * Continue heparin drip for now, patient will require at least 30 days anticoagulation after cardioversion * TIEN cardioversion to be done Tuesday, 01/10 so patient will be NPO Tuesday night * Echo obtained yesterday showed systolic dysfunction, LVEF 20% and severely decreased global left ventricular systolic function 2. Positive troponins * Likely represent demand ischemia in setting of atrial fibrillation with RVR * Troponin shows flat curve at 0.11 without peak, more consistent with demand ischemia 3. Epigastric pain with transaminitis and ascites * On admission, patient had abdominal/pelvis CTA that showed abdominal ascites * IR suggested moderate risk of paracentesis given close proximity to liver, will not proceed with diagnostic paracentesis * Continue to follow GI recommendations * RUQ abdominal US showed small amount of ascites, no cholelithiasis/ cholecystitis, unremarkable liver * Diet advanced to low sodium, high fiber diet * Protonix 40 mg PO daily contined, mirlax for consitpation * Vital hepatitis panel nonreactive , VIKI negative and iron studies showed low iron/% saturation (consider adding Fe once abdominal pain improves) * Follow daily LFTs (trending down from admission) 4. ETOH dependance * Patient placed on CIWA scale * CIWA has been 0-2 since admission * Consulted patient on abstinence from ETOH and he acknowledged understanding * Social work consult placed, f/u rec's FULL CODE DVTP: IV heparin Low sodium, high fiber diet Mild pain pathway Problem List: 1. Rapid atrial fibrillation 2. Elevated troponin 3. Alcohol dependence 4. Abdominal pain 5. Ascites 6. Transaminitis Pain Ratin Pain Location: Upper abdominal pain Pain Goal: Pain 4 or less Pain Plan: Mild pain pathway, ace for cramping Tomorrow's Labs & Rationales: CBC (heparin therapy), LFTs (trending per GI recommendations)
[2017-01-08 13:17] LABS: PTT 81 SEC (25-37)
--- NOTE | 2017-01-08 13:45 | PN- Cardiology ---
Subjective Subjective: Patient states he is feeling "much better". He has a little bit of mild abdominal discomfort. He denies any chest pain, shortness of breath, palpitations. He remains in atrial fibrillation. His rate is acceptable in the 90s to low 100s. He is on beta booker and digoxin. Objective Vital Signs and I&Os Vital Signs Date Time Temp Pulse Resp B/P Pulse O2 O2 Flow FiO2 Ox Delivery Rate 01/08 1157 122 114/62 01/08 0812 97.9 82 18 120/76 93 Room Air 01/08 0642 80 104/70 01/08 0600 80 16 106/60 01/08 0400 80 16 104/70 01/08 0035 100 106/70 01/08 0021 92.1 85 20 106/70 93 Room Air 01/08 0000 80 16 106/70 01/07 2247 98 Room Air Room Air 01/07 2200 98.7 107 18 94/60 01/07 1837 98 108/62 01/07 1620 97.1 81 16 111/74 99 Room Air 01/07 1414 91 120/54 Intake & Output 01/08 1600 01/08 0800 01/08 0000 01/07 1600 01/07 0800 01/07 0000 Intake Total 200 750 810 200 936 Output Total 1300 1100 400 650 Balance -1100 -350 810 -200 286 Intake, IV 250 310 376 Intake, Oral 200 500 500 200 560 Output, Urine 1300 1100 400 650 Physical Exam: He is in no distress HEENT exam is normal Chest is clear Heart reveals irregular rhythm and no murmurs Extremities reveal good pulses and no edema. Current Medications: Current Medications Sig/Anthony Start time Last Medication Dose Route Stop Time Status Admin Dicyclomine HCl 20 MG 4 TIMES/DAY PRN 01/07 0900 AC 01/08 PO 1157 Digoxin 0.125 MG 1700 01/08 1700 AC PO Diltiazem HCl 125 MG Q24H 01/07 0900 DC 01/07 Sodium Chloride 100 ML IV 0950 Heparin Sodium/ 25,000 UNIT Q24H 01/06 0630 AC 01/07 Dextrose IV 2046 Dextrose/Water 500 ML Metoprolol Tartrate 12.5 MG Q6 01/07 1200 AC 01/08 PO 1157 Omeprazole 40 MG DAILY AC 01/06 1550 AC 01/08 PO 0642 Polyethylene Glycol 17 GM DAILY 01/06 1551 AC 01/06 PO 1704 Results Last 48 Hrs of Labs/Mics: Laboratory Tests 01/08/17 1200: APTT 81 H 01/08/17 0640: Total Bilirubin 0.3, Direct Bilirubin 0.2, AST 57, ALT 174 H, Alkaline Phosphatase 79, Total Protein 4.8 L, Albumin 2.8 L, CBC w Diff NO MAN DIFF REQ , RBC 4.11 L, MCV 84.2, MCH 27.9, RDW 13.9, MPV 9.3, Gran % 56.9, Lymphocytes % 32.9, Monocytes % 7.8, Eosinophils % 1.8, Basophils % 0.6, Absolute Granulocytes 3.8, Absolute Lymphocytes 2.2, Absolute Monocytes 0.5, Absolute Eosinophils 0.1, Absolute Basophils 0, PUBS MCHC 33.2 01/08/17 0045: APTT 83 H 01/07/17 1151: APTT 73 H 01/07/17 0645: Anion Gap 7, Estimated GFR > 60, BUN/Creatinine Ratio 10.0, Total Bilirubin 0.4, Direct Bilirubin 0.3, AST 98 H, ALT 212 H, Alkaline Phosphatase 85, Total Protein 4.7 L, Albumin 2.7 L, CBC w Diff NO MAN DIFF REQ, RBC 3.95 L, MCV 83.3, MCH 28.2, RDW 13.6, MPV 9.4, Gran % 59.0, Lymphocytes % 30.6, Monocytes % 8.4, Eosinophils % 1.3, Basophils % 0.7, Absolute Granulocytes 3.8, Absolute Lymphocytes 2.0, Absolute Monocytes 0.5, Absolute Eosinophils 0.1, Absolute Basophils 0, PUBS MCHC 33.9, Hepatitis A IgM Ab NONREACTIVE, Hep Bs Antigen NONREACTIVE, Hep B Core IgM Ab Conf NONREACTIVE, Hepatitis C Antibody NONREACTIVE 01/07/17 0140: APTT 43 H Assessment/Plan Assessment/Plan The patient is stable. He remains in atrial fibrillation. He is not clinically in congestive heart failure. He remains on IV heparin. He is to have TIEN directed cardioversion on Tuesday if he does not convert prior to that. Continue telemetry? Yes
--- NOTE | 2017-01-08 14:37 | PN- Gastroenterology ---
Assessment/Plan Assessment/Recommendations: Patient is a 56-year-old man who is homeless and intermittently takes excess alcohol and was admitted to [facility] with diffuse abdominal pain and rapid atrial fibrillation patient was seen in his hospital room this morning and was pain free. Had a large breakfast without any issues of nausea vomiting abdominal pain. On exam patient was able in bed abdomen soft nontender no rebound. Bowel sounds present LFTs improving likely due to a combination of passive congestion and EtOH. Overall patient is improving. Agree with advancing to full diet ambulating and planning for discharge if he tolerates this. For outpatient EGD and colonoscopy. Subjective Subjective: No shortness of breath chest pain palpitations abdominal pain visual disturbances anxiety. Objective Vital Signs and I&Os Vital Signs Date Time Temp Pulse Resp B/P Pulse O2 O2 Flow FiO2 Ox Delivery Rate 01/08 1157 122 114/62 01/08 0812 97.9 82 18 120/76 93 Room Air 01/08 0642 80 104/70 01/08 0600 80 16 106/60 01/08 0400 80 16 104/70 01/08 0035 100 106/70 01/08 0021 92.1 85 20 106/70 93 Room Air 01/08 0000 80 16 106/70 01/07 2247 98 Room Air Room Air 01/07 2200 98.7 107 18 94/60 01/07 1837 98 108/62 01/07 1620 97.1 81 16 111/74 99 Room Air Intake & Output 01/08 1600 01/08 0400 01/07 1600 01/07 0400 01/06 1600 01/06 0400 Intake Total 137 659 2425 936 1488 1000 Output Total 1300 1100 400 650 550 Balance -1100 -350 610 680 245 8736 Intake, IV 250 310 826 037 8748 Intake, Oral 200 500 700 560 840 Output, Urine 1300 1100 400 650 550 Patient 200 lb Weight Results Pertinent Lab Results: Laboratory Tests 01/08 01/08 01/08 01/07 1200 0640 0045 1151 Chemistry Total Bilirubin (0.2 - 1.3 mg/dL) 0.3 Direct Bilirubin (< 0.4 mg/dL) 0.2 AST (17 - 59 U/L) 57 ALT (21 - 72 U/L) 174 H Alkaline Phosphatase (< 127 U/L) 79 Total Protein (6.3 - 8.2 g/dL) 4.8 L Albumin (3.5 - 5.0 g/dL) 2.8 L Coagulation APTT (25 - 37 SEC) 81 H 83 H 73 H Hematology CBC w Diff NO MAN DIFF REQ WBC (4.8 - 10.8 /CUMM) 6.7 RBC (4.70 - 6.10 /CUMM) 4.11 L Hgb (14.0 - 18.0 G/DL) 11.5 L Hct (42 - 52 %) 34.6 L MCV (80.0 - 94.0 FL) 84.2 MCH (27.0 - 31.0 PG) 27.9 RDW (11.5 - 14.5 %) 13.9 Plt Count (130 - 400 /CUMM) 153 MPV (7.4 - 10.4 FL) 9.3 Gran % (42.2 - 75.2 %) 56.9 Lymphocytes % (20.5 - 51.1 %) 32.9 Monocytes % (1.7 - 9.3 %) 7.8 Eosinophils % (0 - 5 %) 1.8 Basophils % (0.0 - 2.0 %) 0.6 Absolute Granulocytes (1.4 - 6.5 /CUMM) 3.8 Absolute Lymphocytes (1.2 - 3.4 /CUMM) 2.2 Absolute Monocytes (0.10 - 0.60 /CUMM) 0.5 Absolute Eosinophils (0.0 - 0.7 /CUMM) 0.1 Absolute Basophils (0.0 - 0.2 /CUMM) 0 PUBS MCHC (33.0 - 37.0 G/DL) 33.2 01/07 01/07 01/06 0645 0140 1200 Chemistry Sodium (137 - 145 mmol/L) 137 Potassium (3.5 - 5.1 mmol/L) 4.0 Chloride (98 - 107 mmol/L) 106 Carbon Dioxide (22 - 30 mmol/L) 24 Anion Gap (5 - 16) 7 BUN (9 - 20 mg/dL) 9 Creatinine (0.7 - 1.2 mg/dL) 0.9 Estimated GFR (>60 ml/min) > 60 BUN/Creatinine Ratio (7 - 25 %) 10.0 Total Bilirubin (0.2 - 1.3 mg/dL) 0.4 Direct Bilirubin (< 0.4 mg/dL) 0.3 AST (17 - 59 U/L) 98 H ALT (21 - 72 U/L) 212 H Alkaline Phosphatase (< 127 U/L) 85 Total Protein (6.3 - 8.2 g/dL) 4.7 L Albumin (3.5 - 5.0 g/dL) 2.7 L Coagulation APTT (25 - 37 SEC) 43 H 70 H Hematology CBC w Diff NO MAN DIFF REQ WBC (4.8 - 10.8 /CUMM) 6.5 RBC (4.70 - 6.10 /CUMM) 3.95 L Hgb (14.0 - 18.0 G/DL) 11.1 L Hct (42 - 52 %) 32.9 L MCV (80.0 - 94.0 FL) 83.3 MCH (27.0 - 31.0 PG) 28.2 RDW (11.5 - 14.5 %) 13.6 Plt Count (130 - 400 /CUMM) 145 MPV (7.4 - 10.4 FL) 9.4 Gran % (42.2 - 75.2 %) 59.0 Lymphocytes % (20.5 - 51.1 %) 30.6 Monocytes % (1.7 - 9.3 %) 8.4 Eosinophils % (0 - 5 %) 1.3 Basophils % (0.0 - 2.0 %) 0.7 Absolute Granulocytes (1.4 - 6.5 /CUMM) 3.8 Absolute Lymphocytes (1.2 - 3.4 /CUMM) 2.0 Absolute Monocytes (0.10 - 0.60 /CUMM) 0.5 Absolute Eosinophils (0.0 - 0.7 /CUMM) 0.1 Absolute Basophils (0.0 - 0.2 /CUMM) 0 PUBS MCHC (33.0 - 37.0 G/DL) 33.9 Serology Hepatitis A IgM Ab (NONREACTIVE) NONREACTIVE Hep Bs Antigen (NONREACTIVE) NONREACTIVE Hep B Core IgM Ab Conf (NONREACTIVE) NONREACTIVE Hepatitis C Antibody (NONREACTIVE) NONREACTIVE 01/06 01/06 1130 0520 Chemistry Sodium (137 - 145 mmol/L) 136 L Potassium (3.5 - 5.1 mmol/L) 4.2 Chloride (98 - 107 mmol/L) 107 Carbon Dioxide (22 - 30 mmol/L) 22 Anion Gap (5 - 16) 7 BUN (9 - 20 mg/dL) 12 Creatinine (0.7 - 1.2 mg/dL) 1.0 Estimated GFR (>60 ml/min) > 60 BUN/Creatinine Ratio (7 - 25 %) 12.0 Iron (49 - 181 ug/dL) 44 L TIBC (261 - 462 ug/dL) 302 % Saturation (16 - 45 %) 14 L Ferritin (17.9 - 464 ng/mL) 128.0 Troponin I (<0.11 ng/ml) Cancelled 0.11 *H Coagulation APTT (25 - 37 SEC) 41 H Hematology CBC w Diff NO MAN DIFF REQ WBC (4.8 - 10.8 /CUMM) 7.6 RBC (4.70 - 6.10 /CUMM) 3.87 L Hgb (14.0 - 18.0 G/DL) 10.7 L Hct (42 - 52 %) 32.4 L MCV (80.0 - 94.0 FL) 83.8 MCH (27.0 - 31.0 PG) 27.7 RDW (11.5 - 14.5 %) 13.5 Plt Count (130 - 400 /CUMM) 161 MPV (7.4 - 10.4 FL) 9.3 Gran % (42.2 - 75.2 %) 58.6 Lymphocytes % (20.5 - 51.1 %) 32.1 Monocytes % (1.7 - 9.3 %) 7.7 Eosinophils % (0 - 5 %) 1.0 Basophils % (0.0 - 2.0 %) 0.6 Absolute Granulocytes (1.4 - 6.5 /CUMM) 4.4 Absolute Lymphocytes (1.2 - 3.4 /CUMM) 2.4 Absolute Monocytes (0.10 - 0.60 /CUMM) 0.6 Absolute Eosinophils (0.0 - 0.7 /CUMM) 0.1 Absolute Basophils (0.0 - 0.2 /CUMM) 0 PUBS MCHC (33.0 - 37.0 G/DL) 33.1 Immunology VIKI Titer ND Anti-Nuclear Antibody (NEG,1:40) NEG 1:40 IFA ASSAY 01/06 01/06 01/06 0200 0030 0030 Chemistry Lactic Acid (0.7 - 2.1 mmol/L) 1.0 Troponin I (<0.11 ng/ml) 0.11 *H Urines Urine Color (YEL,AMB,STR) YEL Urine Clarity (CLEAR) CLEAR Urine pH (5.0 - 8.0) 6.0 Ur Specific [place] (1.001 - 1.035) 1.010 Urine Protein (NEG,<30 MG/DL) NEG Urine Ketones (NEG) NEG Urine Nitrite (NEG) NEG Urine Bilirubin (NEG) NEG Urine Urobilinogen (0.1 - 1.0 EU/dl) 0.2 Ur Leukocyte Esterase (NEG) NEG Ur Microscopic EXAM NOT REQUIRED Urine Hemoglobin (NEG) NEG Urine Glucose (N MG/DL) NEG 01/05 1800 Chemistry Sodium (137 - 145 mmol/L) 134 L Potassium (3.5 - 5.1 mmol/L) 4.8 Chloride (98 - 107 mmol/L) 101 Carbon Dioxide (22 - 30 mmol/L) 24 Anion Gap (5 - 16) 9 BUN (9 - 20 mg/dL) 14 Creatinine (0.7 - 1.2 mg/dL) 1.1 Estimated GFR (>60 ml/min) > 60 BUN/Creatinine Ratio (7 - 25 %) 12.7 Glucose (65 - 99 mg/dL) 108 H Lactic Acid (0.7 - 2.1 mmol/L) 1.8 Calcium (8.4 - 10.2 mg/dL) 9.0 Total Bilirubin (0.2 - 1.3 mg/dL) 1.0 AST (17 - 59 U/L) 249 H ALT (21 - 72 U/L) 309 H Alkaline Phosphatase (< 127 U/L) 114 Troponin I (<0.11 ng/ml) 0.11 *H Total Protein (6.3 - 8.2 g/dL) 5.7 L Albumin (3.5 - 5.0 g/dL) 3.5 Globulin (1.9 - 4.2 gm/dL) 2.2 Albumin/Globulin Ratio (1.1 - 2.2 %) 1.6 Amylase (30 - 110 U/L) < 30 L Lipase (23 - 300 U/L) 51 TSH (0.270 - 4.200 uIU/mL) 2.180 Coagulation PT (9.4 - 12.5 SEC) 14.1 H INR (0.90 - 1.17) 1.35 H APTT (25 - 37 SEC) 27 Hematology CBC w Diff NO MAN DIFF REQ WBC (4.8 - 10.8 /CUMM) 14.7 H RBC (4.70 - 6.10 /CUMM) 4.55 L Hgb (14.0 - 18.0 G/DL) 12.6 L Hct (42 - 52 %) 37.7 L MCV (80.0 - 94.0 FL) 82.8 MCH (27.0 - 31.0 PG) 27.5 RDW (11.5 - 14.5 %) 13.4 Plt Count (130 - 400 /CUMM) 227 MPV (7.4 - 10.4 FL) 9.3 Gran % (42.2 - 75.2 %) 81.9 H Lymphocytes % (20.5 - 51.1 %) 11.2 L Monocytes % (1.7 - 9.3 %) 6.6 Eosinophils % (0 - 5 %) 0.1 Basophils % (0.0 - 2.0 %) 0.2 Absolute Granulocytes (1.4 - 6.5 /CUMM) 12.1 H Absolute Lymphocytes (1.2 - 3.4 /CUMM) 1.7 Absolute Monocytes (0.10 - 0.60 /CUMM) 1.0 H Absolute Eosinophils (0.0 - 0.7 /CUMM) 0 Absolute Basophils (0.0 - 0.2 /CUMM) 0 PUBS MCHC (33.0 - 37.0 G/DL) 33.3 Toxicology Serum Alcohol (<10 MG/DL) < 10.0
[2017-01-08 16:43] VITALS: BP 118/73
[2017-01-09] VITALS: BP 120/70
[2017-01-09 00:27] VITALS: BP 120/70
[2017-01-09 00:34] LABS: PTT 94 SEC (25-37)
[2017-01-09 02:00] VITALS: BP 120/70
[2017-01-09 07:51] VITALS: BP 102/70
[2017-01-09 07:56] LABS: ABSOLUTE BASOPHIL COUNT 0.1 /CUMM (0.0-0.2); ABSOLUTE EOSINOPHIL COUNT 0.1 /CUMM (0.0-0.7); ABSOLUTE GRANULOCYTE CT 4.5 /CUMM (1.4-6.5); ABSOLUTE LYMPH COUNT 2.9 /CUMM (1.2-3.4); ABSOLUTE MONOCYTE COUNT 0.7 /CUMM (0.10-0.60); BASOPHIL % 0.7 % (0.0-2.0); EOSINOPHIL % 1.7 % (0-5); GRANULOCYTE % 54.9 % (42.2-75.2); MEAN CORPUSCULAR HGB 27.6 PG (27.0-31.0); MEAN CORPUSCULAR HGB CONC 32.8 G/DL (33.0-37.0); MEAN CORPUSCULAR VOLUME 84.1 FL (80.0-94.0); MEAN PLATELET VOLUME 9.3 FL (7.4-10.4); PLATELET COUNT 185 /CUMM (130-400); RBC DISTRIBUTION WIDTH 14.2 % (11.5-14.5); RED BLOOD CELL CT 4.52 /CUMM (4.70-6.10); WHITE BLOOD CELL COUNT 8.3 /CUMM (4.8-10.8)
--- NOTE | 2017-01-09 10:04 | PN- Housestaff ---
Subjective Follow-up For: new onset atrailf ibrillation Subjective: Patient seen and examined. Feels well. Does not repot of Chest pain or pressure right now. Plan for TIEN cardioversion on Tuesday. ROS negative. Review of Systems Constitutional: Reports: see HPI. Objective Last 24 Hrs of Vital Signs/I&O Vital Signs Date Time Temp Pulse Resp B/P Pulse O2 O2 Flow FiO2 Ox Delivery Rate 01/09 1149 118/66 01/09 0751 97.6 95 18 102/70 93 Room Air 01/09 0614 78 126/76 01/09 0400 77 20 01/09 0200 97.3 77 18 120/70 01/09 0117 91 120/70 01/09 0027 97.3 91 18 120/70 91 Room Air 01/09 0000 97.3 80 18 120/70 01/08 1830 96 Room Air 01/08 1802 97 120/72 01/08 1643 98.0 83 16 118/73 92 Room Air Intake & Output 01/09 1600 01/09 0800 01/09 0000 Intake Total 433.1 200 Output Total 1100 400 Balance -666.9 -200 Intake, IV 233.1 Intake, Oral 200 200 Output, Urine 1100 400 Physical Exam General Appearance: Alert, Oriented X3, Cooperative, No Acute Distress Skin: No Rashes HEENT: Atraumatic Neck: Supple Lymphatic: Cervical nl Cardiovascular: irregular Lungs: Clear to Auscultation, Normal Air Movement Abdomen: Soft, No Tenderness Extremities: No Edema, Normal Pulses Current Medications: Current Medications Sig/Anthony Start time Last Medication Dose Route Stop Time Status Admin Dicyclomine HCl 20 MG 4 TIMES/DAY PRN 01/07 0900 AC 01/09 PO 0820 Digoxin 0.125 MG 1700 01/08 1700 AC 01/08 PO 1802 Heparin Sodium/ 25,000 UNIT Q24H 01/06 0630 AC 01/09 Dextrose IV 0119 Dextrose/Water 500 ML Metoprolol Tartrate 12.5 MG Q6 01/07 1200 AC 01/09 PO 1149 Omeprazole 40 MG DAILY AC 01/06 1550 AC 01/09 PO 0614 Polyethylene Glycol 17 GM DAILY 01/06 1551 AC 01/06 PO 1704 Last 24 Hrs of Lab/Armond Results Last 24 Hrs of Labs/Mics: Laboratory Tests 01/09/17 1100: APTT 88 H 01/09/17 0635: Magnesium 1.8, Total Bilirubin 0.6, Direct Bilirubin 0.4, AST 48, ALT 157 H, Alkaline Phosphatase 79, Total Protein 5.5 L, Albumin 3.3 L, CBC w Diff NO MAN DIFF REQ, RBC 4.52 L, MCV 84.1, MCH 27.6, RDW 14.2, MPV 9.3, Gran % 54.9, Lymphocytes % 34.5, Monocytes % 8.2, Eosinophils % 1.7, Basophils % 0.7, Absolute Granulocytes 4.5, Absolute Lymphocytes 2.9, Absolute Monocytes 0.7 H, Absolute Eosinophils 0.1, Absolute Basophils 0.1, PUBS MCHC 32.8 L 01/08/17 2355: APTT 94 H Assessment/Plan Assessment: Mr. Ferrera is a 56 year old male with no significant past medical history and past social history of possible ETOH dependance who presented to the [facility] ED on 01/05/17 with chief complaint of GERD-like symptoms for approximately 2 days. Patient reports that he was eating pizza and noticed this became "stuck" by his abdominal hernia, after which he took gas-x without relief. Associated symptoms included decreased oral intake secondary to abdominal pain and mild palpitaitons with chest discomfort. In the ED: Vital signs showed T 97.3, HR 120, RR 18, BP 133/83 and O2 saturation of 96% on RA. Labs showed WBC 14.7, H&H 12.6/37.7, Plt 227, Na 134 and otherwise unremarkable BEP. Troponin 0.11. Amylase/lipase WNL. TSH 2.18. INR 1.35. Alcohol <10. EKG showed atrial fibrillation with RVR, HR 147, QRS [address] chest/ abdomen/pelvis showed no dissection of aorta, groundglass airspace disease and abdominal ascites. Patient is admitted to the telemetry floor and the following is the management: 1. New onset atrial fibrillation with RVR * CHADS-Vasc 1 (1 point for CHF as noted on echocardiogram) * Patient initially started on IV heparin drip as well as IV cardizem drip (IV cardizem drip has since been discontinued) * Discontinued 30 mg PO cardizem Q6 as well as IV cardizem drip, patient continued on metoprolol 12.5 mg PO Q6 with a one time dose of 0.5 mg IV digoxin yesterday * 0.125 mg PO digoxin to begin starting 01/08 for better rate control * Will f/u any further cardio rec's on rate control * Continue heparin drip for now, patient will require at least 30 days anticoagulation after cardioversion * TIEN cardioversion to be done Tuesday, 01/10 so patient will be NPO Tuesday night * Echo obtained yesterday showed systolic dysfunction, LVEF 20% and severely decreased global left ventricular systolic function 2. Positive troponins * Likely represent demand ischemia in setting of atrial fibrillation with RVR * Troponin shows flat curve at 0.11 without peak, more consistent with demand ischemia 3. Epigastric pain with transaminitis and ascites * On admission, patient had abdominal/pelvis CTA that showed abdominal ascites * IR suggested moderate risk of paracentesis given close proximity to liver, will not proceed with diagnostic paracentesis * Continue to follow GI recommendations * RUQ abdominal US showed small amount of ascites, no cholelithiasis/ cholecystitis, unremarkable liver * Diet advanced to low sodium, high fiber diet * Protonix 40 mg PO daily contined, mirlax for consitpation * Vital hepatitis panel nonreactive , VIKI negative and iron studies showed low iron/% saturation (consider adding Fe once abdominal pain improves) * Follow daily LFTs (trending down from admission) 4. ETOH dependance * Patient placed on CIWA scale * CIWA has been 0-2 since admission * Consulted patient on abstinence from ETOH and he acknowledged understanding * Social work consult placed, f/u rec's FULL CODE DVTP: IV heparin Low sodium, high fiber diet Mild pain pathway Problem List: 1. Rapid atrial fibrillation 2. Ascites 3. Transaminitis Pain Ratin Pain Location: none Pain Goal: Pain 4 or less Pain Plan: tylenol prn for pain Tomorrow's Labs & Rationales: cbc bep
[2017-01-09 11:49] LABS: PTT 88 SEC (25-37)
--- NOTE | 2017-01-09 13:02 | PN- Gastroenterology ---
Assessment/Plan Assessment/Recommendations: Patient is a 56-year-old man who is homeless and intermittently takes excess alcohol and was admitted to [facility] with diffuse abdominal pain and rapid atrial fibrillation patient was seen in his hospital room this morning and was pain free. He had 3 full meals yesterday without any problems. He's also had breakfast and lunch today. No abdominal pain nausea vomiting. On exam patient was able in bed abdomen soft nontender no rebound. Bowel sounds present LFTs improving likely due to a combination of passive congestion and EtOH. Overall patient is improving. Agree with advancing to full diet ambulating and planning for discharge if he tolerates this. For outpatient EGD and colonoscopy. Subjective Subjective: No shortness of breath chest pain headaches abdominal pain and dysphagia odynophagia nausea vomiting Objective Vital Signs and I&Os Vital Signs Date Time Temp Pulse Resp B/P Pulse O2 O2 Flow FiO2 Ox Delivery Rate 01/09 1149 118/66 01/09 0751 97.6 95 18 102/70 93 Room Air 01/09 0614 78 126/76 01/09 0400 77 20 01/09 0200 97.3 77 18 120/70 01/09 0117 91 120/70 01/09 0027 97.3 91 18 120/70 91 Room Air 01/09 0000 97.3 80 18 120/70 01/08 1830 96 Room Air 01/08 1802 97 120/72 01/08 1643 98.0 83 16 118/73 92 Room Air Intake & Output 01/09 1600 01/09 0400 01/08 1600 01/08 0400 01/07 1600 01/07 0400 Intake Total 433.1 200 490 426 4490 936 Output Total 6996 940 8609 1100 400 650 Balance -666.9 -200 -380 -350 610 286 Intake, IV 233.1 250 310 376 Intake, Oral 200 200 920 500 700 560 Output, Urine 6960 396 7127 1100 400 650 Results Pertinent Lab Results: Laboratory Tests 01/09 01/09 01/08 01/08 1100 0635 2355 1200 Chemistry Potassium (3.5 - 5.1 mmol/L) 4.7 Magnesium (1.6 - 2.3 mg/dL) 1.8 Total Bilirubin (0.2 - 1.3 mg/dL) 0.6 Direct Bilirubin (< 0.4 mg/dL) 0.4 AST (17 - 59 U/L) 48 ALT (21 - 72 U/L) 157 H Alkaline Phosphatase (< 127 U/L) 79 Total Protein (6.3 - 8.2 g/dL) 5.5 L Albumin (3.5 - 5.0 g/dL) 3.3 L Coagulation APTT (25 - 37 SEC) 88 H 94 H 81 H Hematology CBC w Diff NO MAN DIFF REQ WBC (4.8 - 10.8 /CUMM) 8.3 RBC (4.70 - 6.10 /CUMM) 4.52 L Hgb (14.0 - 18.0 G/DL) 12.5 L Hct (42 - 52 %) 38.0 L MCV (80.0 - 94.0 FL) 84.1 MCH (27.0 - 31.0 PG) 27.6 RDW (11.5 - 14.5 %) 14.2 Plt Count (130 - 400 /CUMM) 185 MPV (7.4 - 10.4 FL) 9.3 Gran % (42.2 - 75.2 %) 54.9 Lymphocytes % (20.5 - 51.1 %) 34.5 Monocytes % (1.7 - 9.3 %) 8.2 Eosinophils % (0 - 5 %) 1.7 Basophils % (0.0 - 2.0 %) 0.7 Absolute Granulocytes (1.4 - 6.5 /CUMM) 4.5 Absolute Lymphocytes (1.2 - 3.4 /CUMM) 2.9 Absolute Monocytes (0.10 - 0.60 /CUMM) 0.7 H Absolute Eosinophils (0.0 - 0.7 /CUMM) 0.1 Absolute Basophils (0.0 - 0.2 /CUMM) 0.1 PUBS MCHC (33.0 - 37.0 G/DL) 32.8 L 01/08 01/08 01/07 0640 0045 1151 Chemistry Total Bilirubin (0.2 - 1.3 mg/dL) 0.3 Direct Bilirubin (< 0.4 mg/dL) 0.2 AST (17 - 59 U/L) 57 ALT (21 - 72 U/L) 174 H Alkaline Phosphatase (< 127 U/L) 79 Total Protein (6.3 - 8.2 g/dL) 4.8 L Albumin (3.5 - 5.0 g/dL) 2.8 L Coagulation APTT (25 - 37 SEC) 83 H 73 H Hematology CBC w Diff NO MAN DIFF REQ WBC (4.8 - 10.8 /CUMM) 6.7 RBC (4.70 - 6.10 /CUMM) 4.11 L Hgb (14.0 - 18.0 G/DL) 11.5 L Hct (42 - 52 %) 34.6 L MCV (80.0 - 94.0 FL) 84.2 MCH (27.0 - 31.0 PG) 27.9 RDW (11.5 - 14.5 %) 13.9 Plt Count (130 - 400 /CUMM) 153 MPV (7.4 - 10.4 FL) 9.3 Gran % (42.2 - 75.2 %) 56.9 Lymphocytes % (20.5 - 51.1 %) 32.9 Monocytes % (1.7 - 9.3 %) 7.8 Eosinophils % (0 - 5 %) 1.8 Basophils % (0.0 - 2.0 %) 0.6 Absolute Granulocytes (1.4 - 6.5 /CUMM) 3.8 Absolute Lymphocytes (1.2 - 3.4 /CUMM) 2.2 Absolute Monocytes (0.10 - 0.60 /CUMM) 0.5 Absolute Eosinophils (0.0 - 0.7 /CUMM) 0.1 Absolute Basophils (0.0 - 0.2 /CUMM) 0 PUBS MCHC (33.0 - 37.0 G/DL) 33.2 01/07 01/07 0645 0140 Chemistry Sodium (137 - 145 mmol/L) 137 Potassium (3.5 - 5.1 mmol/L) 4.0 Chloride (98 - 107 mmol/L) 106 Carbon Dioxide (22 - 30 mmol/L) 24 Anion Gap (5 - 16) 7 BUN (9 - 20 mg/dL) 9 Creatinine (0.7 - 1.2 mg/dL) 0.9 Estimated GFR (>60 ml/min) > 60 BUN/Creatinine Ratio (7 - 25 %) 10.0 Total Bilirubin (0.2 - 1.3 mg/dL) 0.4 Direct Bilirubin (< 0.4 mg/dL) 0.3 AST (17 - 59 U/L) 98 H ALT (21 - 72 U/L) 212 H Alkaline Phosphatase (< 127 U/L) 85 Total Protein (6.3 - 8.2 g/dL) 4.7 L Albumin (3.5 - 5.0 g/dL) 2.7 L Coagulation APTT (25 - 37 SEC) 43 H Hematology CBC w Diff NO MAN DIFF REQ WBC (4.8 - 10.8 /CUMM) 6.5 RBC (4.70 - 6.10 /CUMM) 3.95 L Hgb (14.0 - 18.0 G/DL) 11.1 L Hct (42 - 52 %) 32.9 L MCV (80.0 - 94.0 FL) 83.3 MCH (27.0 - 31.0 PG) 28.2 RDW (11.5 - 14.5 %) 13.6 Plt Count (130 - 400 /CUMM) 145 MPV (7.4 - 10.4 FL) 9.4 Gran % (42.2 - 75.2 %) 59.0 Lymphocytes % (20.5 - 51.1 %) 30.6 Monocytes % (1.7 - 9.3 %) 8.4 Eosinophils % (0 - 5 %) 1.3 Basophils % (0.0 - 2.0 %) 0.7 Absolute Granulocytes (1.4 - 6.5 /CUMM) 3.8 Absolute Lymphocytes (1.2 - 3.4 /CUMM) 2.0 Absolute Monocytes (0.10 - 0.60 /CUMM) 0.5 Absolute Eosinophils (0.0 - 0.7 /CUMM) 0.1 Absolute Basophils (0.0 - 0.2 /CUMM) 0 PUBS MCHC (33.0 - 37.0 G/DL) 33.9 Serology Hepatitis A IgM Ab (NONREACTIVE) NONREACTIVE Hep Bs Antigen (NONREACTIVE) NONREACTIVE Hep B Core IgM Ab Conf (NONREACTIVE) NONREACTIVE Hepatitis C Antibody (NONREACTIVE) NONREACTIVE
--- NOTE | 2017-01-09 15:04 | PN- Cardiology ---
Subjective Subjective: The patient remains in atrial fibrillation with a controlled rate. He is having some PVCs as well. He is not having any chest pain, shortness of breath, palpitations. He remains on digoxin and metoprolol and IV heparin. Objective Vital Signs and I&Os Vital Signs Date Time Temp Pulse Resp B/P Pulse O2 O2 Flow FiO2 Ox Delivery Rate 01/09 1149 118/66 01/09 0751 97.6 95 18 102/70 93 Room Air 01/09 0614 78 126/76 01/09 0400 77 20 01/09 0200 97.3 77 18 120/70 01/09 0117 91 120/70 01/09 0027 97.3 91 18 120/70 91 Room Air 01/09 0000 97.3 80 18 120/70 01/08 1830 96 Room Air 01/08 1802 97 120/72 01/08 1643 98.0 83 16 118/73 92 Room Air Intake & Output 01/09 1600 01/09 0800 01/09 0000 01/08 1600 01/08 0800 01/08 0000 Intake Total 986 433.1 200 720 200 750 Output Total 800 0424 140 8214 1100 Balance 186 -666.9 -200 720 -1100 -350 Intake, IV 266 233.1 250 Intake, Oral 720 200 200 720 200 500 Output, Urine 800 8240 377 3282 1100 Physical Exam: He is in no distress HEENT exam is normal Chest is clear Heart reveals irregular rhythm with no murmurs There is no peripheral edema Current Medications: Current Medications Sig/Anthony Start time Last Medication Dose Route Stop Time Status Admin Dicyclomine HCl 20 MG 4 TIMES/DAY PRN 01/07 0900 AC 01/09 PO 0820 Digoxin 0.125 MG 1700 01/08 1700 AC 01/08 PO 1802 Heparin Sodium/ 25,000 UNIT Q24H 01/06 0630 AC 01/09 Dextrose IV 0119 Dextrose/Water 500 ML Metoprolol Tartrate 12.5 MG Q6 01/07 1200 AC 01/09 PO 1149 Omeprazole 40 MG DAILY AC 01/06 1550 AC 01/09 PO 0614 Polyethylene Glycol 17 GM DAILY 01/06 1551 AC 01/06 PO 1704 Results Last 48 Hrs of Labs/Mics: Laboratory Tests 01/09/17 1100: APTT 88 H 01/09/17 0635: Magnesium 1.8, Total Bilirubin 0.6, Direct Bilirubin 0.4, AST 48, ALT 157 H, Alkaline Phosphatase 79, Total Protein 5.5 L, Albumin 3.3 L, CBC w Diff NO MAN DIFF REQ, RBC 4.52 L, MCV 84.1, MCH 27.6, RDW 14.2, MPV 9.3, Gran % 54.9, Lymphocytes % 34.5, Monocytes % 8.2, Eosinophils % 1.7, Basophils % 0.7, Absolute Granulocytes 4.5, Absolute Lymphocytes 2.9, Absolute Monocytes 0.7 H, Absolute Eosinophils 0.1, Absolute Basophils 0.1, PUBS MCHC 32.8 L 01/08/17 2355: APTT 94 H 01/08/17 1200: APTT 81 H 01/08/17 0640: Total Bilirubin 0.3, Direct Bilirubin 0.2, AST 57, ALT 174 H, Alkaline Phosphatase 79, Total Protein 4.8 L, Albumin 2.8 L, CBC w Diff NO MAN DIFF REQ , RBC 4.11 L, MCV 84.2, MCH 27.9, RDW 13.9, MPV 9.3, Gran % 56.9, Lymphocytes % 32.9, Monocytes % 7.8, Eosinophils % 1.8, Basophils % 0.6, Absolute Granulocytes 3.8, Absolute Lymphocytes 2.2, Absolute Monocytes 0.5, Absolute Eosinophils 0.1, Absolute Basophils 0, PUBS MCHC 33.2 01/08/17 0045: APTT 83 H Assessment/Plan Assessment/Plan The patient is stable. He remains in atrial fibrillation. He is not clinically in congestive heart failure. He remains on IV heparin. He is to have TIEN directed cardioversion tomorrow if he does not convert prior to that. Continue telemetry? Yes
[2017-01-09 15:49] VITALS: BP 115/59
--- NOTE | 2017-01-09 20:52 | ED GI/GU/ABDOMINAL COMPLAINT ---
History of Present Illness General Chief Complaint: General Adult Stated Complaint: RAPID AFIB Source: patient, old records Exam Limitations: no limitations Vital Signs & Intake/Output Vital Signs & Intake/Output Vital Signs Date Time Temp Pulse Resp B/P Pulse O2 O2 Flow FiO2 Ox Delivery Rate 01/09 2351 74 100/70 01/09 2331 98.6 94 18 100/72 97 Room Air 01/09 1636 98 106/58 01/09 1635 98 106/58 01/09 1549 97.8 91 15 115/59 99 Room Air 01/09 1149 118/66 01/09 0751 97.6 95 18 102/70 93 Room Air 01/09 0614 78 126/76 01/09 0400 77 20 01/09 0200 97.3 77 18 120/70 01/09 0117 91 120/70 01/09 0027 97.3 91 18 120/70 91 Room Air 01/09 0000 97.3 80 18 120/70 ED Intake and Output 01/09 0000 01/08 1200 Intake Total 920 200 Output Total 400 1300 Balance 520 -1100 Intake, Oral 920 200 Output, Urine 400 1300 Allergies Coded Allergies: Penicillins (UNKNOWN 01/05/17) Triage Note: C/O PAINFUL LUMP IN UPPER ABDOMEN X 2 DAYS, WORSE AFTER EATING PIZZA, STATES HE FELT CONSTIPATED, TOOK A LAXATIVE AND FEELING WORSENING PAIN WITH NAUSEA. Triage Nurses Notes Reviewed? yes Onset: Abrupt Duration: day(s): (2), constant Timing: recent history Quality/Severity: aching, cramping, moderate, sharpness, severe Severity Numbers: 9 Location: epigastric Radiation: no radiation Activities at Onset: eating Prior Abdominal Problems: similar symptoms No Modifying Factors: none Associated Symptoms: DENIES HPI: 56-year-old male with no known medical history presents to emergency room complaining of a progressively worsening painful "lump" in his epigastric region for the past 2 days after eating a slice of pizza. The patient states that he's had intermittent pain in this region over the past several years that has been getting progressively worse. He thought he was constipated so we attempted taking a laxative which made the pain worse. He denies any chest pain palpitations dizziness fever chills nausea vomiting diarrhea no black or bloody stools. Denies any back pain or other abdominal pain. No history of abdominal surgeries in the past. Patient is not on any medication. He smokes marijuana daily and has a few drinks daily he is homeless and has not seen a doctor in several years. His last drink was approximately 3 days ago he has not taken anything else for the pain. The pain is worse with laying back, there are no other modifying factors or associated symptoms otherwise. (SAIMA PHIPPS) Past History Travel History Traveled to [place] past 21 day No Medical History Blood Transfusion Hx: No Any Pertinent Medical History? none Neurological: NONE EENT: NONE Cardiovascular: NONE Respiratory: NONE Gastrointestinal: NONE Hepatic: NONE Renal: NONE Musculoskeletal: NONE Psychiatric: NONE Endocrine: NONE Blood Disorders: NONE Cancer(s): NONE INGREDIENT SPECIALIST/Reproductive: NONE History of MRSA: No History of VRE: No History of CDIFF: No Isolation History: Standard Surgical History Surgical History: non-contributory Psychosocial History Where do you live Home Who do you live with Patient/Self Services at Home None What is your primary language Bangladeshi Tobacco Use: Never used ETOH Use: occasional use Family History Family History, If Any: MOTHER, ; Cause: Myocardial infarct. Hx Contributory? No (SAIMA PHIPPS) Review of Systems Review of Systems Constitutional: Reports: see HPI. All Other Systems: Reviewed and Negative Comments Review of systems: See HPI, All other systems negative. Constitutional, no chills no fever, no malaise HEENT: No visual changes no sore throat no congestion, Cardiovascular: No chest pain , palpitation Skin, no jaundice no rashes, no change in skin Respiratory: No dyspnea no cough no sputum no hemoptysis GI: No nausea no vomiting, no diarrhea, no bloating/constipation : No dysuria No hematuria, no frequency Muscle skeletal: No joint pain, no joint swelling, no back pain, no neck pain, Neurologic: No numbnessno headache Psych: No stress Heme/endocrine: No bruising no bleeding Immunology: No lymphadenopathy (SAIMA PHIPPS) Physical Exam Physical Exam General Appearance: well developed/nourished, alert, awake Gastrointestinal: soft Comments: Well-developed well-nourished person in no acute distress HEENT: Normal EENT exam; PERRL, EOMI, HEAD is atraumatic. moist mucous membranes. Neck: Supple, no lymphadenopathy, normal range of motion without pain or tenderness Back: Nontender, no CVA tenderness. Full range of motion Cardiovascular: Irregular rate and rhythm, tachycardic no murmurs rubs or gallops, normal JVP Respiratory: No respiratory distress. Patient speaking in full complete sentences. Breath sounds clear to auscultation bilaterally: NO W/R/R Abdomen: Soft, tender to palpation over the epigastrium no pulsatile mass nondistended, no appreciable organomegaly. Normal bowel sounds. No rebound/ guarding, No appreciable enlargement of the abdominal aorta, No ascites. Rectal: Nontender. Heme negative stool. Extremity: No edema, full range of motion of extremities Neuro: Alert oriented x3, motor sensory normal, There were no obvious focal neurologic abnormalities. Skin: No appreciable rash on exposed skin, skin is warm and dry. Psych: Mood and affect is normal, memory and judgment is normal. Core Measures ACS in differential dx? Yes Severe Sepsis Present: No Septic Shock Present: No (CARLI PATEL,SAIMA) Progress Differential Diagnosis: AAA, AMI, appendicitis, biliary colic, bowel obstruction , colon cancer, cholecystitis, diverticulitis, esophageal varices, gastritis, hepatitis, hernia, ischemic bowel, inflamm bowel dis, Rima-Sathya tear, pancreatitis, peptic ulcer, PUD/GERD, perforated viscous, pyelonephritis, SBO, ureterolithiasis, AFIB, PE, DISSECTION Plan of Care: Orders Procedure Date/time Status PARTIAL THROMBOPLASTIN TIME 01/09 2300 Complete PARTIAL THROMBOPLASTIN TIME 01/09 0700 Complete MAGNESIUM 01/09 0635 Complete POTASSIUM 01/09 0635 Complete Lab Add-on Test 01/09 UNK Active Laboratory Tests 01/09/17 2250: APTT 64 H 01/09/17 1100: APTT 88 H 01/09/17 0635: Magnesium 1.8, Total Bilirubin 0.6, Direct Bilirubin 0.4, AST 48, ALT 157 H, Alkaline Phosphatase 79, Total Protein 5.5 L, Albumin 3.3 L, CBC w Diff NO MAN DIFF REQ, RBC 4.52 L, MCV 84.1, MCH 27.6, RDW 14.2, MPV 9.3, Gran % 54.9, Lymphocytes % 34.5, Monocytes % 8.2, Eosinophils % 1.7, Basophils % 0.7, Absolute Granulocytes 4.5, Absolute Lymphocytes 2.9, Absolute Monocytes 0.7 H, Absolute Eosinophils 0.1, Absolute Basophils 0.1, PUBS MCHC 32.8 L Labs ordered old records reviewed patient found to be in a rapid A. fib, Cardizem 10 mg IV push ordered without response and additional 10 mg IV push was given which time the patient heart rate decreased into an A. fib in the 90s to 110s Dr. MEJIA at bedside for evaluation 01/05/2017 8:07:20 PM pending CAT scan results patient resting completely reports improvement in his symptoms with Dilaudid, Cardizem drip is running noted to be A. fib in the 90s to 100s I discussed with him at length all of his lab results I discussed the patient is CAT scan results, case was discussed with Dr. CARDENAS WILL ADMIT, AGREES WITH PLAN FOR HEPARIN AND CARDIZEM GTT. (CARLI PATEL,SAIMA) Diagnostic Imaging: Viewed by Me: CT Scan. Discussed w/RAD: CT Scan. Radiology Impression: PATIENT: YARON SANTIAGO PRESENT AGE: 56 PATIENT ACCOUNT NO: [id number] : 60 LOCATION: [facility] ORDERING PHYSICIAN: SAIMA PATEL SERVICE DATE: 01/05/17 EXAM TYPE: CAT - CT ABD & PELVIS ANGIOGRAM; CTA CHEST-AORTIC DISSECTION EXAMINATION: 1. CTA chest: 2. CT ABDOMEN AND PELVIS WITH CONTRAST CLINICAL INFORMATION: Epigastric pain radiating into the chest. Concern for aortic dissection COMPARISON: None. TECHNIQUE: A noncontrast axial images obtained through the chest precontrast., followed by the administration of 95 mL Optiray [address] of the chest was then performed. Coronal and sagittal reformatted and 3-D technique No off site 3-D imaging performed. Images were then performed through the abdomen and pelvis. Coronal and sagittal reformatted images performed at CT scanner by technologist. DLP: 1227.94 mGy-cm. FINDINGS: 1. CTA CHEST; VASCULAR: Normal enhancement of thoracic aorta. No aneurysm or dissection. The pulmonary arteries are well-opacified showing no evidence of pulmonary embolism of the central pulmonary vessels. MEDIASTINUM: There are multiple borderline lymph nodes in the pretracheal retrovascular space and AP window. These may be reactive. LUNGS: There is scattered areas of groundglass nodular opacities at both lower lobes and middle lobe and lingula and in the upper lobe medially bilateral. These are nonspecific. Would favor an infectious or inflammatory etiology. The central bronchial airways are open. There is no bronchiectasis. No interstitial or reticular abnormality. FLUID: There is no pericardial effusion. There is no pleural effusion. AXILLA: No significant lymphadenopathy. 2. CT SCAN ABDOMEN PELVIS: LIVER, GALLBLADDER, AND BILIARY TREE : The liver is normal in size, shape, and attenuation. No focal hepatic lesion or biliary ductal dilatation is present. Gallbladder is normal in size with no calcified stone. There is fluid around the gallbladder but this is indeterminate given the presence of abdominal ascites. No specific inflammation of the mesentery. PANCREAS: Unremarkable. SPLEEN: Unremarkable. ADRENAL GLANDS: Unremarkable. KIDNEYS AND URETERS: The kidneys are normal in size, shape, and attenuation. No hydronephrosis, hydroureter, or calculi seen. No perinephric stranding. BLADDER: Unremarkable. GASTROINTESTINAL TRACT: The small and large bowel are unremarkable. The appendix is not identified. Mesentery: Small moderate volume of abdominal ascites. Fluid around the liver, gallbladder, spleen and bilateral paracolic gutter and layering in the pelvis at the cul-de- sac. No free air. ABDOMINAL WALL: No significant hernia is appreciated. LYMPH NODES: Normal. VASCULAR: Normal enhancement of the vasculature. No aneurysm or dissection of the aorta. Normal enhancement of the celiac axis, SMA, renal arteries and iliac arteries. PELVIC VISCERA: Unremarkable. OSSEOUS STRUCTURES: Unremarkable. IMPRESSION: 1. Normal CT of thoracic and abdominal aorta. No dissection 2. Scattered groundglass and nodular airspace opacities in the lungs bilateral. Would favor an infectious or inflammatory etiology. 3. Abdominal ascites. DICTATED BY: YANCY ORTIZ MD DATE/TIME DICTATED:01/05/171945 BLUEPRINTING MACHINE OPERATOR:LEE DATE/TIME TRANSCRIBED:01/05/171945 CONFIDENTIAL, DO NOT COPY WITHOUT APPROPRIATE AUTHORIZATION. <Electronically signed in Other Vendor System> SIGNED BY: YANCY ORTIZ MD 01/05/17 2100 Initial ED EKG: Initial ED EKG: a. FIB AT 150, pvcS, NO ACUTE st SEGMENT CHANGES NORMAL AXIS Repeat EKG: changed (AFIB 100, NO ACUTE CHANGES) Rhythm Strip: atrial fibrillation Repeat EKG: changed (AFIB AT 100,NO ACUTE CHANGES) Rhythm Strip: atrial fibrillation (SAIMA PHIPPS) Departure Departure Disposition: STILL A PATIENT Condition: Stable Clinical Impression Primary Impression: Rapid atrial fibrillation Secondary Impressions: Elevated troponin level Referrals: UNKNOWN (PCP/Family) Departure Forms: Customer Survey General Discharge Information Admission Note Spoke With: RUFINO CARDENAS MD Documentation of Exam: Documentation of any treatments & extenuating circumstances including Concerns Regarding Discharge (functional status, medication knowledge or non-compliance, living conditions, etc.) that warrant an admission rather than observation: cardiogly eval, cardizem drip, heparin drip, trend labs, troponin (SAIMA PHIPPS) PA/COAL PASSER Co-Sign Statement Statement: ED Attending supervision documentation- [X] I saw and evaluated the patient. I have also reviewed all the pertinent lab results and diagnostic results. I agree with the findings and the plan of care as documented in the PA's/COAL PASSER's documentation. [X] I have reviewed the ED Record and agree with the PA's/COAL PASSER's documentation. [] Additions or exceptions (if any) to the PAs/COAL PASSER's note and plan are summarized below: [] (ROBERTO JACOBS,MARCOS) Critical Care Note Critical Care Note Critical Care Time: 30-74 min (SAIMA PHIPPS) ED Attending Observation Initial Observation Note: I have seen and personally examined YARON SANTIAGO on 01/09/17 at 2048. I agree with the current emergency department documentation. The disposition (admission or discharge) is uncertain at this time, he needs a period of observation for the following reason(s): The ED Nurse caring for this patient has been personally informed as to what the patient is being observed for. (SAIMA PHIPPS)
[2017-01-09 23:18] LABS: PTT 64 SEC (25-37)
[2017-01-09 23:31] VITALS: BP 100/72
[2017-01-10] VITALS: BP 100/70
[2017-01-10 04:00] VITALS: BP 102/60
--- NOTE | 2017-01-10 06:50 | PN- Housestaff ---
GABINO JACOBS,ANAHY 01/10/17 0650: Subjective Follow-up For: Atrial fibrillation with RVR Elevated troponins Abdominal pain, etiology unknown Transaminitis with ascites ETOH dependance Tele-Events Since Last Visit: Atrial fibrillation, HR 64 up to 120 bpm, noted inverted T waves. Subjective: Patient seen and examined at bedside this AM. He reports his abdominal pain is doing much better and less food appears to be getting "stuck" in the epigastric area when he eats. He does continue to endorse this anterior chest with midscapular muscular pain that is present on laying flat but disappears when he lays on his side. He continues to deny chest pain or palpiations along with orthopnea, dyspnea or peripheral edema. Review of Systems Constitutional: Denies: chills, diaphoresis, malaise. EENTM: Denies: blurred vision, nasal congestion. Cardiovascular: Denies: chest pain, edema, orthopena, palpitations, peripheral edema. Respiratory: Denies: cough, orthopnea, short of breath, sputum production. Gastrointestinal: Reports: abdominal pain. Denies: bloating, constipation, diarrhea, nausea, changes in stool, vomiting. Genitourinary: Denies: hematuria. Musculoskeletal: Reports: back pain. Denies: neck pain. Skin: Denies: rash. Neurological/Psychological: Denies: confusion, headache. Hematologic/Endocrine: Denies: bruising, bleeding. Immunologic/Allergic: Denies: splenectomy. Objective Last 24 Hrs of Vital Signs/I&O Vital Signs Date Time Temp Pulse Resp B/P Pulse O2 O2 Flow FiO2 Ox Delivery Rate 01/10 0641 84 100/60 01/10 0400 88 16 102/60 01/10 0000 74 16 100/70 01/09 2351 74 100/70 01/09 2331 98.6 94 18 100/72 97 Room Air 01/09 1636 98 106/58 01/09 1635 98 106/58 01/09 1549 97.8 91 15 115/59 99 Room Air 01/09 1149 118/66 Intake & Output 01/10 1600 01/10 0800 01/10 0000 Intake Total 0 986 Output Total 750 1600 Balance -750 -614 Intake, IV 266 Intake, Oral 0 720 Output, Urine 750 1600 Physical Exam General Appearance: Alert, Oriented X3, Cooperative, No Acute Distress Skin: No Rashes HEENT: Atraumatic, PERRLA, Mucous Membr. moist/pink Neck: Supple, +2 Carotid Pulse wo Bruit Lymphatic: Cervical nl Cardiovascular: Irregularly irregular, normal rate. Lungs: Clear to Auscultation, Normal Air Movement Abdomen: Normal Bowel Sounds, Soft, + tenderness to palpation of epigastric and RUQ with + lump in epigastric region that becomes more pronounced on flexion. Neurological: Normal Speech, Strength at 5/5 X4 Ext, Normal Tone Extremities: No Clubbing, No Cyanosis, Minimal bilateral lower extremity edema with normal pulses bilaterally. Vascular: Pulses Symmetrical Current Medications: Current Medications Sig/Anthony Start time Last Medication Dose Route Stop Time Status Admin Dicyclomine HCl 20 MG 4 TIMES/DAY PRN 01/07 0900 AC 01/09 PO 0820 Digoxin 0.125 MG 1700 01/08 1700 AC 01/09 PO 1636 Heparin Sodium/ 25,000 UNIT Q24H 01/06 0630 AC 01/09 Dextrose IV 2125 Dextrose/Water 500 ML Magnesium Oxide 400 MG ONE ONE 01/09 1745 DC 01/09 PO 01/09 1746 1806 Metoprolol Tartrate 12.5 MG Q6 01/07 1200 AC 01/09 PO 2351 Omeprazole 40 MG DAILY AC 01/06 1550 AC 01/09 PO 0614 Polyethylene Glycol 17 GM DAILY 01/06 1551 AC 01/06 PO 1704 Last 24 Hrs of Lab/Armond Results Last 24 Hrs of Labs/Mics: Laboratory Tests 01/09/17 2250: APTT 64 H 01/09/17 1100: APTT 88 H Orders ECHO Findings: CONCLUSIONS Moderate left ventricular dilatation. No left ventricular hypertrophy. Severely reduced global left ventricular systolic function. Left ventricular ejection fraction is estimated at 20 %. Normal right ventricular size. Mildly reduced right ventricular global systolic function. Mild to moderate right atrial dilatation. Mild to moderate left atrial dilatation. Moderate mitral regurgitation. Right ventricular systolic pressure estimated at > 45 mmHg. Minimal pericardial effusion (normal variant). Normal size aortic root. IVC 2.6 cm. Miscellaneous Findings: Abdominal US: IMPRESSION: 1. Small amount of ascites. 2. No evidence of cholelithiasis or cholecystitis. 3. Unremarkable liver. Assessment/Plan Assessment: Mr. Ferrera is a 56 year old male with no significant past medical history and past social history of ETOH dependance who presented to the [place] ED on 01/05/17 with chief complaint of GERD-like symptoms for approximately 2 days. Patient reports that he was eating pizza and noticed this became "stuck" by his abdominal hernia, after which he took gas-x without relief. Associated symptoms included decreased oral intake secondary to abdominal pain and mild palpitations with chest discomfort. In the ED: Vital signs showed T 97.3, HR 120, RR 18, BP 133/83 and O2 saturation of 96% on RA. Labs showed WBC 14.7, H&H 12.6/37.7, Plt 227, Na 134 and otherwise unremarkable BEP. Troponin 0.11. Amylase/lipase WNL. TSH 2.18. INR 1.35. Alcohol <10. EKG showed atrial fibrillation with RVR, HR 147, QRS [address] chest/ abdomen/pelvis showed no dissection of aorta, groundglass airspace disease and abdominal ascites. Patient is admitted to the telemetry floor and the following is the management: 1. New onset atrial fibrillation with RVR * CHADS-Vasc 1 (1 point for CHF as noted on echocardiogram) * Today, patient went for TIEN cardioversion which was successful and patient is now in NSR. Medication changes include: STOP metoprolol 12.5 mg PO Q6, digoxin 0.125 daily. START metoprolol XL 25 mg PO daily, lisinopril 2.5 mg PO daily, xarelto 20 mg PO daily and STOP the heparin drip 2 hours after starting xarelto (given at dinner time daily). * Patient will require at least 30 days anticoagulation after cardioversion * Patient will require close cardiology follow up after discharge (within 7 days , f/u with Dr. Fitzgerald) * Echo obtained showed systolic dysfunction, LVEF 20% and severely decreased global left ventricular systolic function 2. Positive troponins * Likely represent demand ischemia in setting of atrial fibrillation with RVR * Troponin shows flat curve at 0.11 without peak, more consistent with demand ischemia 3. Epigastric pain with transaminitis and ascites * Epigastric pain much improved today, tolerating diet well (low sodium, high fiber diet ) * On admission, patient had abdominal/pelvis CTA that showed abdominal ascites * IR suggested moderate risk of paracentesis given close proximity to liver, will not proceed with diagnostic paracentesis * RUQ abdominal US showed small amount of ascites, no cholelithiasis/ cholecystitis, unremarkable liver * Protonix 40 mg PO daily contined, mirlax for constipation * Vital hepatitis panel nonreactive , VIKI negative and iron studies showed low iron/% saturation (consider adding Fe once abdominal pain improves) * Follow daily LFTs (likely elevated on admission 2/2 passive congestion from low EF as well as ETOH consumption), trending down nicely * Likely outpatient EGD and colonoscopy with close GI F/U after DC 4. ETOH dependance * Patient placed on CIWA scale * CIWA has been 0-2 since admission * Consulted patient on abstinence from ETOH and he acknowledged understanding * Social work consult placed, f/u rec's FULL CODE DVTP: IV heparin NPO for cardioversion today Mild pain pathway Problem List: 1. Rapid atrial fibrillation 2. Elevated troponin 3. Alcohol dependence 4. Abdominal pain 5. Ascites 6. Transaminitis Pain Ratin Pain Location: Epigastric region Pain Goal: Pain 4 or less Pain Plan: Bentyl for abdominal cramping, please avoid tylenol 2/2 transaminitis and liver dysfunction from both ETOH and passive congestion from systolic dysfunction. Tomorrow's Labs & Rationales: CBC (heparin therapy), BEP (electrolytes post op). [facility] 01/10[facility]17 1103: Attending MD Review Statement Attending Statement Attending MD Statement: examined this patient, discuss w/resident/PA/WINDOW DRESSER, reviewed EMR data (avail), discussed with case mgmt, reviewed images, amended to note (see my note)
[2017-01-10 08:27] VITALS: BP 124/82
--- NOTE | 2017-01-10 11:09 | PN- Att Addend ---
Attending Addendum Attending Brief Note 1. New onset atrial fibrillation with rapid ventricular response 2. Minimal troponin elevation, nonspecific with flat troponin curve 3. Newly diagnosed severe systolic dysfunction with significant mitral regurgitation 4. Abdominal pain with ascites 5. Abnormal LFTs 6. Status post TIEN cardioversion 01/10/2017 The patient underwent successful TIEN/cardioversion this morning. TIEN showed severe LV dysfunction with no intracardiac thrombus and a small interatrial shunt. The patient was successfully cardioverted using 200 J of synchronized energy. He tolerated the procedure well and remains hemodynamically stable. We will initiate the patient on Xarelto 20 mg by mouth QHS starting this evening and heparin drip will be discontinued 2 hours after he receives the Xarelto. Discontinue digoxin and change beta booker to Toprol-XL 25 mg by mouth daily. Start on lisinopril 2.5 mg by mouth daily. His oral anticoagulation will need to be continued for 30 days without interruption following this cardioversion. His abdominal discomfort has improved significantly and he is planned to follow- up with GI after discharge. If patient remains stable following cardioversion he may be a candidate for discharge tomorrow. I have personally seen and examined this patient. I have personally reviewed all relevant imaging and laboratory data. I have discussed the case with the care team. Roberto Fitzgerald MD [facility]
--- NOTE | 2017-01-10 11:11 | Proc Note Cardiology ---
Cardiology Procedure Procedure Date: 01/10/17 Cardiology Procedure(s): electrical cardioversion, TIEN Pre-Operative Diagnosis: Atrial fibrillation Post-Operative Diagnosis: Sinus rhythm Estimated Blood Loss: none Anesthesia: Propofol by anasthesia Procedure Findings: See official transesophageal echo report for details. The patient was successfully cardioverted from atrial fibrillation to sinus rhythm using 200 J of synchronized energy. No complications noted. Roberto Fitzgerald MD [facility]
[2017-01-10] MEDS ORDERED: TOPROL XL25 M1 PO (11:21)
[2017-01-10] MEDS ORDERED: BENTYL10 M1 PO (11:21)
[2017-01-10] MEDS ORDERED: PRILOSEC OTC20 M1 PO (11:21)
[2017-01-10] MEDS ORDERED: LISINOPRIL2.5 M1 PO (11:21)
[2017-01-10] MEDS ORDERED: XARELTO20 M2 PO (11:21)
--- NOTE | 2017-01-10 11:24 | Patient Discharge Instructions ---
Discharge Instructions General Discharge Information You were seen/treated for: Atrial fibrillation Abdominal pain Special Instructions: Please follow up with Dr. Kc within 1 week of discharge for continued care. Please follow up with Dr. Fitzgerald within 1 week of discharge for continued care. Please take all medications as directed. Please follow up with Dr. Campos within 1 week for continued workup of your abdominal pain and possible endoscopy/colonoscopy. Diet Recommended Diet: Heart Healthy Activity Activity Self Limited: Yes Acute Coronary Syndrome Inclusion Criteria At DC or during hospital stay patient has or had the following: ACS DIAGNOSIS No Discharge Core Measures Meds if any: Prescribed or Continued at Discharge Meds if any: NOT Prescribed or Continued at Discharge Congestive Heart Failure Inclusion Criteria At DC or during hospital stay patient has or had the following: CHF DIAGNOSIS No Discharge Core Measures Meds if any: Prescribed or Continued at Discharge Meds if any: NOT Prescribed or Continued at Discharge Cerebrovascular accident Inclusion Criteria At DC or during hospital stay patient has or had the following: CVA/TIA Diagnosis No Discharge Core Measures Meds if any: Prescribed or Continued at Discharge Meds if any: NOT Prescribed or Continued at Discharge Venous thromboembolism Inclusion Criteria VTE Diagnosis No VTE Type NONE VTE Confirmed by (Test) NONE Discharge Core Measures - Per Current guidelines, there needs to be overlap - treatment for the first 5 days of Warfarin therapy. - If discharged on Warfarin prior to 5 days of - overlap therapy, the patient will need to be - assessed for post discharge needs including - *Post discharge parental anticoagulation - *Warfarin and/or parental anticoagulation education - *Follow up date to check INR post discharge At least 5 days overlap therapy as Inpatient No Meds if any: Prescribed or Continued at Discharge Note: Overlap Therapy is Warfarin and Anticoagulant Meds if any: NOT Prescribed or Continued at Discharge
--- NOTE | 2017-01-10 11:32 | Discharge Summary ---
Visit Information Visit Dates Admission Date: 01/05/17 Discharge Date: 01/11/17 Hospital Course Course Attending Physician: RUFINO CARDENAS MD Primary Care Physician: Dr. Eveline Kc MD. Consulting Request: Consulting Specialty: Gastroenterology Consulting Physician: Dr. Andres MD Reason for Consult: Abdominal pain with ascites and transaminitis Hospital Course: Mr. Ferrera is a 56 year old male with no significant past medical history and past social history of ETOH dependance who presented to the [place] ED on 01/05/17 with chief complaint of GERD-like symptoms for approximately 2 days. Patient reports that he was eating pizza and noticed this became "stuck" by his abdominal hernia, after which he took gas-x without relief. Associated symptoms included decreased oral intake secondary to abdominal pain and mild palpitations with chest discomfort. In the ED: Vital signs showed T 97.3, HR 120, RR 18, BP 133/83 and O2 saturation of 96% on RA. Labs showed WBC 14.7, H&H 12.6/37.7, Plt 227, Na 134 and otherwise unremarkable BEP. Troponin 0.11. Amylase/lipase WNL. TSH 2.18. INR 1.35. Alcohol <10. EKG showed atrial fibrillation with RVR, HR 147, QRS [address] chest/ abdomen/pelvis showed no dissection of aorta, groundglass airspace disease and abdominal ascites. Patientwas admitted to the telemetry floor and the following was the management: 1. New onset atrial fibrillation with RVR: On admission, patient was placed on IV heparin with IV cardizem drip for rate control. 30 mg PO cardizem Q6 was added to transition to oral therapy, but patient remained persistently tachycardic. This oral cardizem was discontinued and patient was switched to PO metoprolol 12.5 mg with 0.125 mg PO digoxin for better rate control. Echocardiogram was performed and showed global reduction in left ventricular systolic function with EF 20%. At this point, patient's CHADS-Vasc was noted to be 1. Patient was scheduled and had a successful cardioversion on 01/10/17. He was subsequently in normal sinus rhythm and anticoagulation was switched to PO xarelto. Short-acting metoprolol and digoxin were discontinued and patient was transitioned to 25 mg PO toprol XL with 2.5 mg PO daily lisinopril. He willr equire at least 30 days of anticoagulation and should follow up with Dr. Fitzgerald within 7 days of discharge for close monitoring and continued management of systolic dysfunction. 2. Demand ischemia with elevated troponins: Patient was noted to have positive troponins with peak of 0.11. The troponin curve remained flat and the elevation was likely secondary to demand/increased stress secondary to tachycardia from atrial fibrillation. As ACS not suspected, aspirin not added to regimen. Echocardiogram was done as noted above with severe systolic dysfunction seen. He should follow up closely with both Dr. Fitzgerald and Dr. Kc within 7 days of discharge for close monitoring. 3. Epigastric pain with transaminitis and ascites: Labs from the emergency room showed transaminitis to AST 249 and ALT to 309. On admission, patient had abdominal/pelvis CTA that showed abdominal ascites but was otherwise unremarkable (no large hernia noted). IR contacted in hopes of abdominal paracentesis, however due to small amount of fluid in close proximity to the liver, no paracentesis was performed. GI consult was obtained with Dr. Campos who suggested empiric PPI (omeprazole) and miralax daily to prevent constipation. Bentyl was added for abdominal cramping. RUQ US was obtained and again showed small amount of ascites with no cholelithiasis/cholecystitis and no cirrhosis. GI suggested transaminitis was likely secondary to passive congestion from reduced ejection fraction in combination with alcohol dependance. Patient was consulted on discontinuation of alcohol daily. No further GI intervention was done and patient was given referral to Dr. Campos for continued management of his abdominal pain after discharge. Consideration for endoscopy and colonoscopy by Dr. Campos. 4. ETOH dependance: Due to history of ETOH dependance, patient was placed on CIWA scoring. Max CIWA score on admission was 2. He did not require any PO or IV ativan. Social work consult was obtained. We emphasized the need for patient to discontinue ETOH use as this is detrimental to his liver function as well as several other body systems; he acknowledged understanding. 5. Code status: FULL 6. DVT Prophylaxis: IV heparin switched to Xarelto Complications: None. Allergies: Coded Allergies: Penicillins (UNKNOWN 01/05/17) Significant Procedures: EXAMINATION: 1. CTA chest: 2. CT ABDOMEN AND PELVIS WITH CONTRAST CLINICAL INFORMATION: Epigastric pain radiating into the chest. Concern for aortic dissection COMPARISON: None. TECHNIQUE: A noncontrast axial images obtained through the chest precontrast., followed by the administration of 95 mL Optiray [address] of the chest was then performed. Coronal and sagittal reformatted and 3-D technique No off site 3-D imaging performed. Images were then performed through the abdomen and pelvis. Coronal and sagittal reformatted images performed at CT scanner by technologist. DLP: 1227.94 mGy-cm. FINDINGS: 1. CTA CHEST; VASCULAR: Normal enhancement of thoracic aorta. No aneurysm or dissection. The pulmonary arteries are well-opacified showing no evidence of pulmonary embolism of the central pulmonary vessels. MEDIASTINUM: There are multiple borderline lymph nodes in the pretracheal retrovascular space and AP window. These may be reactive. LUNGS: There is scattered areas of groundglass nodular opacities at both lower lobes and middle lobe and lingula and in the upper lobe medially bilateral. These are nonspecific. Would favor an infectious or inflammatory etiology. The central bronchial airways are open. There is no bronchiectasis. No interstitial or reticular abnormality. FLUID: There is no pericardial effusion. There is no pleural effusion. AXILLA: No significant lymphadenopathy. 2. CT SCAN ABDOMEN PELVIS: LIVER, GALLBLADDER, AND BILIARY TREE: The liver is normal in size, shape, and attenuation. No focal hepatic lesion or biliary ductal dilatation is present. Gallbladder is normal in size with no calcified stone. There is fluid around the gallbladder but this is indeterminate given the presence of abdominal ascites. No specific inflammation of the mesentery. PANCREAS: Unremarkable. SPLEEN: Unremarkable. ADRENAL GLANDS: Unremarkable. KIDNEYS AND URETERS: The kidneys are normal in size, shape, and attenuation. No hydronephrosis, hydroureter, or calculi seen. No perinephric stranding. BLADDER: Unremarkable. GASTROINTESTINAL TRACT: The small and large bowel are unremarkable. The appendix is not identified. Mesentery: Small moderate volume of abdominal ascites. Fluid around the liver, gallbladder, spleen and bilateral paracolic gutter and layering in the pelvis at the cul-de-sac. No free air. ABDOMINAL WALL: No significant hernia is appreciated. LYMPH NODES: Normal. VASCULAR: Normal enhancement of the vasculature. No aneurysm or dissection of the aorta. Normal enhancement of the celiac axis, SMA, renal arteries and iliac arteries. PELVIC VISCERA: Unremarkable. OSSEOUS STRUCTURES: Unremarkable. IMPRESSION: 1. Normal CT of thoracic and abdominal aorta. No dissection 2. Scattered groundglass and nodular airspace opacities in the lungs bilateral. Would favor an infectious or inflammatory etiology. 3. Abdominal ascites. Echocardiogram: FINDINGS Left Ventricle Moderate left ventricular dilatation. No left ventricular hypertrophy. Severely reduced global left ventricular systolic function. Left ventricular ejection fraction is estimated at 20 %. Right Ventricle Normal right ventricular size. Mildly reduced right ventricular global systolic function. Right Atrium Mild to moderate right atrial dilatation. Left Atrium Mild to moderate left atrial dilatation. Mitral Valve Structurally normal mitral valve. Moderate mitral regurgitation. Aortic Valve No aortic stenosis. Trileaflet aortic valve. Tricuspid Valve Structurally normal tricuspid valve. Mild tricuspid regurgitation. Right ventricular systolic pressure estimated at > 45 mmHg. Pulmonic Valve Pulmonic valve not well visualized, grossly normal. Pericardium Minimal pericardial effusion (normal variant). Great Vessels Normal size aortic root. IVC 2.6 cm. CONCLUSIONS Moderate left ventricular dilatation. No left ventricular hypertrophy. Severely reduced global left ventricular systolic function. Left ventricular ejection fraction is estimated at 20 %. Normal right ventricular size. Mildly reduced right ventricular global systolic function. Mild to moderate right atrial dilatation. Mild to moderate left atrial dilatation. Moderate mitral regurgitation. Right ventricular systolic pressure estimated at > 45 mmHg. Minimal pericardial effusion (normal variant). Normal size aortic root. IVC 2.6 cm. EXAMINATION: US ABDOMEN LIMITED CLINICAL INFORMATION: Severe abdominal pain, ascites, transaminitis. Right upper quadrant ultrasound for gallstones, liver evaluation. COMPARISON: CT of the abdomen and pelvis 01/05/2017. TECHNIQUE: Real-time imaging of the right upper quadrant abdominal viscera. FINDINGS: PANCREAS: The head and body are unremarkable. The tail is obscured by gas. LIVER: Normal. The liver demonstrates normal size, contour and echogenicity. No focal lesion or intrahepatic biliary duct dilatation. GALLBLADDER: Normal. The gallbladder is physiologically distended without evidence of stones, sludge, polyps, wall thickening or pericholecystic fluid. COMMON BILE DUCT: Normal in caliber measuring 0.4 cm in diameter. RIGHT KIDNEY: Normal. No hydronephrosis. No renal calculi or focal parenchymal lesions. The kidney measures 13.2 cm in maximum dimension. FREE FLUID: There is a small amount of ascites in the right upper quadrant and left upper quadrants. IMPRESSION: 1. Small amount of ascites. 2. No evidence of cholelithiasis or cholecystitis. 3. Unremarkable liver. FINDINGS Left Ventricle Moderate left ventricular dilatation. No left ventricular hypertrophy. Severely reduced global left ventricular systolic function. Left ventricular ejection fraction is estimated at 15 %. Right Ventricle Normal right ventricular size. Mildly reduced right ventricular global systolic function. Right Atrium Mild to moderate right atrial dilatation. Left Atrium Mild to moderate left atrial dilatation. LA Appendage No thrombus detected in the left atrial appendage. IA Septum Small interatrial shunt by Color Doppler. Mitral Valve Structurally normal mitral valve. [id number] mitral regurgitation. Aortic Valve Structurally normal trileaflet aortic valve. Tricuspid Valve Structurally normal tricuspid valve. Mild tricuspid regurgitation. Unable to estimate the right ventricular systolic pressure. Pulmonic Valve No pulmonic stenosis. Trace pulmonic regurgitation. Pericardium Minimal pericardial effusion (normal variant). Great Vessels Normal size aortic root. CONCLUSIONS Moderate left ventricular dilatation. No left ventricular hypertrophy. Severely reduced global left ventricular systolic function. Left ventricular ejection fraction is estimated at 15 %. Normal right ventricular size. Mildly reduced right ventricular global systolic function. Mild to moderate right atrial dilatation. Mild to moderate left atrial dilatation. No thrombus detected in the left atrial appendage. Small interatrial shunt by Color Doppler. Dpldtmjm-aj-rgfloy mitral regurgitation. Following the TIEN the patient was cardioverted from atrial fibrillation to SR using 200 J of energy. Disposition Summary Disposition Principal Diagnosis: Atrial fibrillation with RVR Systolic dysfunction with EF 20% Type 2 NE Abdominal pain, etiology unknown Transaminitis Ascites Additional Diagnosis: ETOH dependance Discharge Disposition: home or self care Discharge Instructions General Discharge Information Code Status: Full Code Patient's Diet: Heart healthy diet. Patient's Activity: Self-limited, as tolerated. Follow-Up Instructions/Appts: Please follow up with Dr. Arenas within 1 week of discharge to set up a primary care. Please follow up with Dr. Fitzgerald within 1 week of discharge for continued care. Please take all medications as directed. Please follow up with Dr. Campos within 1 week for continued workup of your abdominal pain and possible endoscopy/colonoscopy. Medications at Discharge Discharge Medications: Start taking the following new medications: Metoprolol Succ XL (Toprol XL) 25 MG TAB 1.5 Tablet ORAL DAILY Qty = 60 No Refills Comments: Last Taken: 01/11/17 Time: 10:15 25MG GIVEN THIS AM Rivaroxaban (Xarelto) 20 MG TABLET 1 Tablet ORAL Every night Qty = 30 No Refills Instructions: with food Comments: Last Taken: 01/10/17 Time: 5 PM Lisinopril (Lisinopril) 2.5 MG TABLET 1 Tablet ORAL DAILY Qty = 30 No Refills Comments: Last Taken: 01/11/17 Time: 10:15 Dicyclomine Hydrochloride (Bentyl) 10 MG CAPSULE 1 Capsule ORAL 4 TIMES A DAY as needed for Abdominal pain Qty = 90 No Refills Comments: Last Taken: 01/09/17 Time: 8:20 AM Omeprazole Magnesium (Prilosec Otc) 20 MG TABLET.DR 1 Tablet ORAL DAILY Qty = 30 No Refills Comments: Last Taken: 01/11/17 Time: 6 AM Polyethylene Glycol 3350 (Miralax) 17 GRAM/DOSE POWDER 17 Gram ORAL DAILY as needed for Constipation Qty = 255 Refills = 1 Instructions: mix with water, juice, soda, coffee or tea Comments: Last Taken: 01/06/17 Time: 5 PM Copies To: TIMOTHY FITZGERALD MD; YECENIA JACOBS,EVELINE CAMPOS MD,GREG Chavarria MD Review Statement Documenting Attending: TIMOTHY FITZGERALD MD
--- NOTE | 2017-01-10 12:34 | ECHOCARDIOGRAM REPORT ---
YARON SANTIAGO Age: 56 : Gender: M Exam Date: 01/10/2017 09:42 Exam Location: [address] Ht (in): 70 Wt (lb): 200 BSA: 2.14 BP: 136 / 72 Ordering Physician: ANAHY LLOYD MD Referring Physician: ANAHY LLOYD MD Technologist: Omar Winters [facility] Room Number: 189-1 Indications: AFIB/FLUTTER Rhythm: Atrial fibrillation Technical Quality: Excellent Medications Propofol administered by Anesthesiology. Ease of Transducer Insertion No Difficulty Complications None. Technical Difficulty None. FINDINGS Left Ventricle Moderate left ventricular dilatation. No left ventricular hypertrophy. Severely reduced global left ventricular systolic function. Left ventricular ejection fraction is estimated at 15 %. Right Ventricle Normal right ventricular size. Mildly reduced right ventricular global systolic function. Right Atrium Mild to moderate right atrial dilatation. Left Atrium Mild to moderate left atrial dilatation. LA Appendage No thrombus detected in the left atrial appendage. IA Septum Small interatrial shunt by Color Doppler. Mitral Valve Structurally normal mitral valve. Srjmkmbj-gj-rvqfzg mitral regurgitation. Aortic Valve Structurally normal trileaflet aortic valve. Tricuspid Valve Structurally normal tricuspid valve. Mild tricuspid regurgitation. Unable to estimate the right ventricular systolic pressure. Pulmonic Valve No pulmonic stenosis. Trace pulmonic regurgitation. Pericardium Minimal pericardial effusion (normal variant). Great Vessels Normal size aortic root. CONCLUSIONS Moderate left ventricular dilatation. No left ventricular hypertrophy. Severely reduced global left ventricular systolic function. Left ventricular ejection fraction is estimated at 15 %. Normal right ventricular size. Mildly reduced right ventricular global systolic function. Mild to moderate right atrial dilatation. Mild to moderate left atrial dilatation. No thrombus detected in the left atrial appendage. Small interatrial shunt by Color Doppler. Taklwdtc-kb-xpoyni mitral regurgitation. Following the TIEN the patient was cardioverted from atrial fibrillation to SR using 200 J of energy. Tony Fitzgerald M.D. (Electronically Signed) Final Date: 10 January 2017 12:33 MEASUREMENTS (Male / Female) Normal Values
[2017-01-10 15:13] LABS: PTT 76 SEC (25-37)
[2017-01-10 16:32] VITALS: BP 102/76
[2017-01-11 00:10] VITALS: BP 110/82
--- NOTE | 2017-01-11 07:01 | PN- Housestaff ---
Subjective Follow-up For: Atrial fibrillation with RVR s/p cardioversion ETOH dependance Transaminitis with ascites Abdominal pain Tele-Events Since Last Visit: Sinus rhythm HR 76-87 bpm, MA of 0.22 at 4 am, otherwise no events. Subjective: Patient seen and examined at bedside this AM. He is standing at bedside and feeling well. He reports he has no abdominal pain whatsoever, though he has the noted hernia in the epigastric region that he ultimately wants removed. Patient reports he feels close to baseline and is ready for discharge today. He denies chest pain, palpitations, shortness of breath or nausea/vomiting. Review of Systems Constitutional: Denies: chills, fever. EENTM: Denies: blurred vision, hearing changes, nasal congestion. Cardiovascular: Denies: chest pain, palpitations, syncope. Respiratory: Denies: cough, short of breath. Gastrointestinal: Denies: abdominal pain, bloating, constipation, diarrhea, nausea, vomiting. Genitourinary: Denies: dysuria, frequency. Musculoskeletal: Denies: back pain. Skin: Denies: lesions, rash. Neurological/Psychological: Denies: confusion, headache. Hematologic/Endocrine: Denies: bruising, bleeding. Immunologic/Allergic: Denies: splenectomy. Objective Last 24 Hrs of Vital Signs/I&O Vital Signs Date Time Temp Pulse Resp B/P Pulse O2 O2 Flow FiO2 Ox Delivery Rate 01/11 0010 97.8 93 20 110/82 97 01/10 1848 95 96/50 01/10 1632 98.4 95 18 102/76 96 Room Air 01/10 1422 87 100/60 01/10 1421 87 100/60 01/10 0827 98.1 108 18 124/82 97 Room Air 01/10 0819 108 124/82 Intake & Output 01/11 0800 01/11 0000 01/10 1600 Intake Total 430 636 5961.4 Output Total 800 700 525 Balance -350 10 741.4 Intake, IV 260 766.4 Intake, Oral 450 450 500 Number 1 Bowel Movements Output, Urine 800 700 525 Patient 200 lb Weight Physical Exam General Appearance: Alert, Oriented X3, Cooperative, No Acute Distress Skin: No Rashes, No Significant Lesion HEENT: Atraumatic, PERRLA, EOMI, Mucous Membr. moist/pink Neck: Supple, +2 Carotid Pulse wo Bruit Lymphatic: Cervical nl Cardiovascular: Regular Rate, Normal S1, Normal S2 Lungs: Clear to Auscultation, Normal Air Movement Abdomen: Normal Bowel Sounds, Soft, Epigastric lump, slightly tender to palpation of epigastric area. + BS x4. Neurological: Normal Gait, Normal Speech, Strength at 5/5 X4 Ext, Normal Tone Extremities: No Clubbing, No Cyanosis, No Edema Vascular: Pulses Symmetrical Current Medications: Current Medications Sig/Anthony Start time Last Medication Dose Route Stop Time Status Admin Dicyclomine HCl 20 MG 4 TIMES/DAY PRN 01/07 0900 AC 01/09 PO 0820 Digoxin 0.125 MG 1700 01/08 1700 DC 01/09 PO 1636 Heparin Sodium/ 25,000 UNIT .STK-MED ONE 01/10 0858 DC Dextrose IV 01/10 0859 Heparin Sodium/ 25,000 UNIT .STK-MED ONE 01/10 0856 DC Dextrose IV 01/10 0857 Heparin Sodium/ 25,000 UNIT Q24H 01/06 0630 DC 01/10 Dextrose IV 01/10 1900 0910 Dextrose/Water 500 ML Lisinopril 2.5 MG DAILY 01/10 1107 AC 01/10 PO 1422 Metoprolol Succinate 25 MG DAILY 01/11 1000 AC PO Metoprolol Tartrate 12.5 MG Q6 01/07 1200 DC 01/10 PO 01/10 2300 1848 Omeprazole 40 MG DAILY AC 01/06 1550 AC 01/11 PO 0559 Polyethylene Glycol 17 GM DAILY 01/06 1551 AC 01/06 PO 1704 Rivaroxaban 20 MG 1700 01/10 1700 AC 01/10 PO 1702 Last 24 Hrs of Lab/Armond Results Last 24 Hrs of Labs/Mics: Laboratory Tests 01/10/17 1345: APTT 76 H Orders ECHO Findings: TIEN: CONCLUSIONS Moderate left ventricular dilatation. No left ventricular hypertrophy. Severely reduced global left ventricular systolic function. Left ventricular ejection fraction is estimated at 15 %. Normal right ventricular size. Mildly reduced right ventricular global systolic function. Mild to moderate right atrial dilatation. Mild to moderate left atrial dilatation. No thrombus detected in the left atrial appendage. Small interatrial shunt by Color Doppler. Fnjzcdku-qo-fwualm mitral regurgitation. Following the TIEN the patient was cardioverted from atrial fibrillation to SR using 200 J of energy. Miscellaneous Findings: Abd US: IMPRESSION: 1. Small amount of ascites. 2. No evidence of cholelithiasis or cholecystitis. 3. Unremarkable liver. Assessment/Plan Assessment: Mr. Ferrera is a 56 year old male with no significant past medical history and past social history of ETOH dependance who presented to the [place] ED on 01/05/17 with chief complaint of GERD-like symptoms for approximately 2 days. Patient reports that he was eating pizza and noticed this became "stuck" by his abdominal hernia, after which he took gas-x without relief. Associated symptoms included decreased oral intake secondary to abdominal pain and mild palpitations with chest discomfort. In the ED: Vital signs showed T 97.3, HR 120, RR 18, BP 133/83 and O2 saturation of 96% on RA. Labs showed WBC 14.7, H&H 12.6/37.7, Plt 227, Na 134 and otherwise unremarkable BEP. Troponin 0.11. Amylase/lipase WNL. TSH 2.18. INR 1.35. Alcohol <10. EKG showed atrial fibrillation with RVR, HR 147, QRS [address] chest/ abdomen/pelvis showed no dissection of aorta, groundglass airspace disease and abdominal ascites. Patient is admitted to the telemetry floor and the following is the management: 1. New onset atrial fibrillation with RVR * CHADS-Vasc 1 (1 point for CHF as noted on echocardiogram) * Yesterday, patient went for TIEN cardioversion which was successful and patient is now in NSR. Medications for discharge include 2.5 mg PO lisinopril, 1.5 tab metoprolol XL 25 mg and xarelto 20 mg PO daily (above clarified with Dr. Shafer who agrees with just switching metoprolol and keeping lisinopril at 2.5 mg ) * Patient will require at least 30 days anticoagulation after cardioversion * Patient will require close cardiology follow up after discharge (within 7 days , f/u with Dr. Fitzgerald) * TIEN showed systolic dysfunction, LVEF 20% and severely decreased global left ventricular systolic function, moderate-severe MR 2. Positive troponins * Likely represent demand ischemia in setting of atrial fibrillation with RVR * Troponin shows flat curve at 0.11 without peak, more consistent with demand ischemia 3. Epigastric pain with transaminitis and ascites * Epigastric pain much improved today, tolerating diet well (low sodium, high fiber diet ) * On admission, patient had abdominal/pelvis CTA that showed abdominal ascites * IR suggested moderate risk of paracentesis given close proximity to liver, will not proceed with diagnostic paracentesis * RUQ abdominal US showed small amount of ascites, no cholelithiasis/ cholecystitis, unremarkable liver * Protonix 40 mg PO daily contined, mirlax for constipation (provided these on discharge) * Vital hepatitis panel nonreactive , VIKI negative and iron studies showed low iron/% saturation (consider adding Fe once abdominal pain improves) * Followed daily LFTs (likely elevated on admission 2/2 passive congestion from low EF as well as ETOH consumption), trended down nicely * Likely outpatient EGD and colonoscopy with close GI F/U after DC 4. ETOH dependance * Patient placed on CIWA scale * CIWA has been 0-2 since admission * Consulted patient on abstinence from ETOH and he acknowledged understanding * Social work consult placed, patient reported stable living conditions and no wish to address ETOH dependance, will reconsult social work if further issues arise FULL CODE DVTP: IV heparin NPO for cardioversion today Mild pain pathway Problem List: 1. Transaminitis 2. Ascites 3. Abdominal pain 4. Alcohol dependence 5. Elevated troponin 6. Rapid atrial fibrillation Pain Ratin Pain Location: n/a Pain Goal: Remain pain free Pain Plan: Mild pain pathway. Tomorrow's Labs & Rationales: None, discharge today. Consulting Request: Consulting Specialty: Gastroenterology Consulting Physician: Dr. Andres MD Reason for Consult: Abdominal pain with ascites and transaminitis
[2017-01-11] MEDS ORDERED: MIRALAX119 GM PO (07:41)
[2017-01-11 08:05] VITALS: BP 108/76
[2017-01-11 08:17] LABS: ABSOLUTE BASOPHIL COUNT 0 /CUMM (0.0-0.2); ABSOLUTE EOSINOPHIL COUNT 0.1 /CUMM (0.0-0.7); ABSOLUTE GRANULOCYTE CT 4.6 /CUMM (1.4-6.5); ABSOLUTE LYMPH COUNT 1.8 /CUMM (1.2-3.4); ABSOLUTE MONOCYTE COUNT 0.6 /CUMM (0.10-0.60); BASOPHIL % 0.5 % (0.0-2.0); EOSINOPHIL % 1.7 % (0-5); GRANULOCYTE % 63.7 % (42.2-75.2); HEMATOCRIT 35.3 % (42-52); MEAN CORPUSCULAR HGB 27.5 PG (27.0-31.0); MEAN CORPUSCULAR VOLUME 83.6 FL (80.0-94.0); MEAN PLATELET VOLUME 8.9 FL (7.4-10.4); PLATELET COUNT 186 /CUMM (130-400); RBC DISTRIBUTION WIDTH 14.2 % (11.5-14.5); RED BLOOD CELL CT 4.22 /CUMM (4.70-6.10); WHITE BLOOD CELL COUNT 7.2 /CUMM (4.8-10.8)
--- NOTE | 2017-01-11 08:49 | PN- Cardiology ---
Subjective Subjective: Telemetry reviewed. Remains in sinus rhythm. Patient actually offers no complaints and is anxious to go home. Detailed discussion with nursing staff no cardiac or other issues. Objective Vital Signs and I&Os Vital Signs Date Time Temp Pulse Resp B/P Pulse O2 O2 Flow FiO2 Ox Delivery Rate 01/11 0805 98.0 86 18 108/76 96 Room Air 01/11 0010 97.8 93 20 110/82 97 01/10 1848 95 96/50 01/10 1632 98.4 95 18 102/76 96 Room Air 01/10 1422 87 100/60 01/10 1421 87 100/60 Intake & Output 01/11 1600 01/11 0800 01/11 0000 01/10 1600 01/10 0800 01/10 0000 Intake Total 613 936 9996.4 0 986 Output Total 800 700 229 441 1303 Balance -350 10 741.4 -750 -614 Intake, IV 260 766.4 266 Intake, Oral 450 450 500 0 720 Number 1 Bowel Movements Output, Urine 800 700 611 678 2496 Patient 200 lb Weight Physical Exam: Gen. exam patient comfortable laying laying in bed. Head normocephalic atraumatic Eyes sclera anicteric conjunctiva showed no pallor or muscle were normal Neck no jugular venous distention no thyroid masses no palpable nodes Chest lungs were clear bilaterally Heart regular rhythm with a grade 2 to 3/6 midsystolic murmur in the apex Abdomen soft no organomegaly nontender small epigastric hernia Extremities no clubbing cyanosis or pedal edema Neurological no gross motor or sensory deficits Current Medications: Current Medications Sig/Anthony Start time Last Medication Dose Route Stop Time Status Admin Dicyclomine HCl 20 MG 4 TIMES/DAY PRN 01/07 0900 AC 01/09 PO 0820 Digoxin 0.125 MG 1700 01/08 1700 DC 01/09 PO 1636 Heparin Sodium/ 25,000 UNIT .STK-MED ONE 01/10 0858 DC Dextrose IV 01/10 0859 Heparin Sodium/ 25,000 UNIT .STK-MED ONE 01/10 0856 DC Dextrose IV 01/10 0857 Heparin Sodium/ 25,000 UNIT Q24H 01/06 0630 DC 01/10 Dextrose IV 01/10 1900 0910 Dextrose/Water 500 ML Lisinopril 2.5 MG DAILY 01/10 1107 AC 01/10 PO 1422 Metoprolol Succinate 25 MG DAILY 01/11 1000 AC PO Metoprolol Tartrate 12.5 MG Q6 01/07 1200 DC 01/10 PO 01/10 2300 1848 Omeprazole 40 MG DAILY AC 01/06 1550 AC 01/11 PO 0559 Polyethylene Glycol 17 GM DAILY 01/06 1551 AC 01/06 PO 1704 Rivaroxaban 20 MG 1700 01/10 1700 AC 01/10 PO 1702 Results Last 48 Hrs of Labs/Mics: Laboratory Tests 01/11/17 0630: Anion Gap 8, Estimated GFR > 60, BUN/Creatinine Ratio 14.0, CBC w Diff NO MAN DIFF REQ, RBC 4.22 L, MCV 83.6, MCH 27.5, RDW 14.2, MPV 8.9, Gran % 63.7, Lymphocytes % 25.6, Monocytes % 8.5, Eosinophils % 1.7, Basophils % 0.5, Absolute Granulocytes 4.6, Absolute Lymphocytes 1.8, Absolute Monocytes 0.6, Absolute Eosinophils 0.1, Absolute Basophils 0, PUBS MCHC 33.0 01/10/17 1345: APTT 76 H 01/09/17 2250: APTT 64 H 01/09/17 1100: APTT 88 H Assessment/Plan Assessment/Plan In summary this 76-year-old gentleman has the following problems 1. New onset atrial fibrillation with rapid ventricular response 2. Minimal troponin elevation, nonspecific with flat troponin curve 3. Newly diagnosed severe systolic dysfunction with significant mitral regurgitation 4. Abdominal pain with ascites 5. Abnormal LFTs 6. Status post TIEN cardioversion 01/10/2017 7. 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 He currently has been cardioverted in sinus rhythm and appears well. He is on appropriate medications including beta blockers, ODALIS inhibitor's and is on anticoagulation which should be maintained for at least 30 days. Alcohol cessation was advised and he will be in close follow-up with cardiology, primary care medicine and GI. I agree with discharge plan. I however would increase his lisinopril to 5 mg a day, and increase his metoprolol succinate 25 mg, to 1-1/2 tablet today.(37.5 mg a day) Continue telemetry? No
[2017-01-11] MEDS ORDERED: TOPROL XL25 M1 PO (08:52)
[2017-01-11 10:16] VITALS: BP 108/76
== END 2017-01-11 12:45 | DRG 201 ==
LOC: ENRESERVDT → ENRESERVTM → ERH 16:28 → ENPENDDIS 21:58 → 1NO 21:58 → ERHI 21:58 → 1NO 23:25
PROVIDERS: Internal Medicine; Physician Assistant Medical; Student in an Organized Health Care Education/Training Program; ADMIT Internal Medicine Cardiovascular Disease
PROC: 5A2204Z Restoration of Cardiac Rhythm, Single (ICD-10-PCS; principal; 2017-01-10)
PROC: B246ZZ4 Ultrasonography of Right and Left Heart, Transesophageal (ICD-10-PCS; 2017-01-10)
DX: I48.91 Unspecified atrial fibrillation (principal); Z79.01 Long term (current) use of anticoagulants; F10.20 Alcohol dependence, uncomplicated; I42.9 Cardiomyopathy, unspecified; R18.8 Other ascites; R10.9 Unspecified abdominal pain; I24.8 Other forms of acute ischemic heart disease
CPT/HCPCS: 1NSP; 36415; 74174; 81003; 82436; 93005; 93010; 93306; 93325; 96374; 96375; 96376; 99291; G0480; J1160; J1644; J3490; J7042; J7060

== ENCOUNTER 2017-01-29 17:04 | Inpatient (IN) | payer OTHER ==
[~2017-01-29] VITALS: Ht 177.8 cm; Wt 90.7 kg
[~2017-01-29 17:04] MED LIST: BENTYL10 M1 PO; LISINOPRIL2.5 M1 PO; MIRALAX119 GM PO; PRILOSEC OTC20 M1 PO; TOPROL XL25 M1 PO; XARELTO20 M2 PO
--- NOTE | 2017-01-29 17:06 | NUR ---
PT STATES "HE IS GOING TO PASS OUT" PT REFUSING WHEEL CHAIR STATING HE WILL NOT SIT IN IT IT CAUSES HIM TOO MUCH PAIN. PT AGAIN ENCOURAGED TO SIT IN WHEELCHAIR BUT PT REFUSED.
--- NOTE | 2017-01-29 17:17 | NUR ---
PER PT DX WITH HERNIA 3 WEEKS AGO BUT MY HEART WAS HAVING PROBLEMS SO THEY DID NOT TAKE CARE OF THE HERNIA BUT I CANT STAND THE HERNIA PAIN ANYMORE.
--- NOTE | 2017-01-29 17:25 | NUR ---
PT REPORTS WAS CARDIOVERTED THE LAST TIME HERE.
--- NOTE | 2017-01-29 17:43 | ED GI/GU/ABDOMINAL COMPLAINT ---
History of Present Illness General Chief Complaint: General Adult Stated Complaint: HERNIA PAIN Source: patient Exam Limitations: no limitations Allergies Coded Allergies: Penicillins (UNKNOWN 01/05/17) Reconcile Medications Dicyclomine Hydrochloride (Bentyl) 10 MG CAPSULE 1 CAP PO 4 TIMES/DAY PRN Abdominal pain Digoxin (Lanoxin) 125 MCG TABLET 0.125 MG PO 1700 HEART RATE Metoprolol Succ XL (Toprol XL) 25 MG TAB 1 TAB PO DAILY HEART RATE Omeprazole Magnesium (Prilosec Otc) 20 MG TABLET.DR 1 TAB PO DAILY GERD Polyethylene Glycol 3350 (Miralax) 17 GRAM/DOSE POWDER 17 GM PO DAILY PRN Constipation mix with water, juice, soda, coffee or tea Rivaroxaban (Xarelto) 20 MG TABLET 1 TAB PO QPM Anticoagulant with food Triage Note: PER PT DX WITH HERNIA 3 WEEKS AGO BUT MY HEART WAS HAVING PROBLEMS SO THEY DID NOT TAKE CARE OF THE HERNIA BUT I CANT STAND THE HERNIA PAIN ANYMORE. Triage Nurses Notes Reviewed? yes HPI: This patient is a 56-year-old male with a past medical history including atrial fibrillation and ventral abdominal hernia who presented to the emergency department today for evaluation of worsening hernia pain. The patient reported that he was seen here recently and diagnosed with new onset atrial fibrillation. He reported, "all they wanted to do was focused on my heart and nobody would take care of my hernia." The patient reported that he believes that when his hernia gets, "strangulated," this causes his heart to act up. He reported that he can feel that it is beating quickly. The patient reported that he feels nauseous whenever he eats anything. He denied any vomiting, but reported, "only liquid is getting through. I have not had a normal bowel movement recently." The patient reported that he is not taking any of his prescribed medication. The patient reported, "I am homeless and I need help with this pain." The patient denied any fevers, chills, chest pain, difficulty breathing, blood in the stool, hemoptysis, or any other associated symptoms. (JELENA POWELL,RADHA) Vital Signs & Intake/Output Vital Signs & Intake/Output Vital Signs Date Time Temp Pulse Resp B/P Pulse O2 O2 Flow FiO2 Ox Delivery Rate 01/31 0908 92 114/70 01/31 0817 98.1 92 18 114/70 95 Room Air 01/31 0800 Room Air 01/30 2251 99.2 90 18 98/60 94 Room Air ED Intake and Output 01/31 0000 01/30 1200 Intake Total 480 Output Total Balance 480 Intake, Oral 480 Past History Travel History Traveled to [place] past 21 day No Medical History Any Pertinent Medical History? see below for history Neurological: NONE EENT: NONE Cardiovascular: AFIB, IRREGULAR CARDIOVERSION Respiratory: NONE Gastrointestinal: ventral hernia Hepatic: NONE Renal: NONE Musculoskeletal: NONE Psychiatric: NONE Endocrine: NONE Blood Disorders: NONE Cancer(s): NONE SKIING INSTRUCTOR/Reproductive: NONE History of MRSA: No History of VRE: No History of CDIFF: No Surgical History Surgical History: non-contributory Psychosocial History Who do you live with Patient/Self Services at Home None What is your primary language Croatian Tobacco Use: Never used Family History Family History, If Any: MOTHER, ; Cause: Myocardial infarct. Hx Contributory? No (RADHA BOWLES PA-C) Review of Systems Review of Systems Constitutional: Reports: no symptoms. EENTM: Reports: no symptoms. Respiratory: Reports: no symptoms. Cardiovascular: Reports: see HPI. GI: Reports: see HPI. Genitourinary: Reports: no symptoms. Musculoskeletal: Reports: no symptoms. Skin: Reports: no symptoms. Neurological/Psychological: Reports: no symptoms. All Other Systems: Reviewed and Negative (RADHA BOWLES PA-C) Physical Exam Physical Exam Gastrointestinal: normal bowel sounds, soft, ventral hernia appreciated in the epigastric region which is exquisitely tender to palpation and soft. No overlying discoloration of skin. Diffusely tender to palpation throughout the abdomen. No organomegaly. Nondistended. No rebound or guarding. No McBurney' s point tenderness Comments: Well-developed well-nourished person in mild distress HEENT: Normal EENT exam, head normocephalic, moist mucous membranes Pupils equally round and reactive to light. Neck: Supple, no lymphadenopathy Back: Normal gait Cardiovascular: Irregularly irregular. No carotid bruits or JVD Respiratory: Chest nontender. No respiratory distress. Breath sounds clear to auscultation bilaterally with no wheezes, rales, or rhonchi Extremity: Normal and equal pulses Neuro: Alert oriented x3, cranial nerves II through XII grossly intact. Skin: No appreciable rash on exposed skin, skin is warm and dry. Psych: Mood and affect is normal, memory and judgment is normal. Core Measures ACS in differential dx? Yes Severe Sepsis Present: No Septic Shock Present: No (JELENA POWELL,RADHA) Progress Differential Diagnosis: AAA, AMI, appendicitis, biliary colic, bowel obstruction , colon cancer, cholecystitis, diverticulitis, gastritis, hepatitis, hernia, ischemic bowel, inflamm bowel dis, pancreatitis, PUD/GERD, perforated viscous, pyelonephritis, ureterolithiasis, UTI/pyelo, atrial fibrillation, ACS Diagnostic Imaging: Viewed by Me: CT Scan. Discussed w/RAD: CT Scan. Radiology Impression: PATIENT: YARON SANTIAGO PRESENT AGE: 56 PATIENT ACCOUNT NO: [id number] : 60 LOCATION: [facility] ORDERING PHYSICIAN: RADHA BOWLES PA-C SERVICE DATE: 01/29/17 EXAM TYPE: CAT - CT ABD & PELVIS W IV CONTRAST EXAMINATION: CT ABDOMEN AND PELVIS WITH CONTRAST CLINICAL INFORMATION: Abdominal pain. Assess for hernia or strangulation. COMPARISON: CT chest abdomen and pelvis 01/05/2017. TECHNIQUE: Multidetector volumetric imaging was performed of the abdomen and pelvis before and after the IV administration of 95 mL of Optiray 320 intravenous contrast. Sagittal and coronal reformatted images were obtained on the technologist's workstation. DLP: 279 mGy-cm. FINDINGS: LUNG BASES: Dependent parenchymal changes. No pleural effusion. Mildly prominent cardiac size. PERITONEAL CAVITY: Trace volume of ascites. No pneumoperitoneum. LIVER, GALLBLADDER, AND BILIARY TREE: The liver is normal in size, shape, and attenuation. No focal hepatic lesion or biliary ductal dilatation is present. There is a degree of periportal edema. The gallbladder is distended without radiodense gallstones or significant mural thickening. PANCREAS: Unremarkable. SPLEEN: Unremarkable. ADRENAL GLANDS: Unremarkable. KIDNEYS AND URETERS: The kidneys are normal in size, shape, and attenuation. No hydronephrosis, hydroureter, or calculi seen. No perinephric stranding. BLADDER: Unremarkable. GASTROINTESTINAL TRACT: Fluid-filled loops of large and small bowel are demonstrated without significant bowel distention. No evidence of acute bowel inflammation. The appendix is not discretely delineated. ABDOMINAL WALL: Diffuse mild subcutaneous edema. Small ovoid-shaped unchanged fluid pocket along the ventral mid upper abdomen measuring 2.4 x 0.9 cm is nonspecific and unchanged. LYMPH NODES: No bulky adenopathy is demonstrated. VASCULAR: Unremarkable. PELVIC VISCERA: Punctate central prostate calcifications. Seminal vesicles are unremarkable. OSSEOUS STRUCTURES: No acute osseous abnormalities. IMPRESSION: 1. Findings may reflect a degree of volume overload, with periportal edema, trace ascites, and mild subcutaneous fat stranding diffusely. 2. No evidence of bowel obstruction. Nonspecific fluid- filled loops of large and small bowel without evidence of acute inflammation or significant distention. 3. Additional nonacute findings as above. DICTATED BY: CHAKA AVILES MD DATE/TIME DICTATED:01/29/171940 WAREHOUSE WORKER:LEE DATE/TIME TRANSCRIBED:01/29/171940 CONFIDENTIAL, DO NOT COPY WITHOUT APPROPRIATE AUTHORIZATION. <Electronically signed in Other Vendor System> SIGNED BY: CHAKA AVILES MD 01/29/171957 Initial ED EKG: AFIB, no ST T wave changes, 163 bpm Comments: 01/29/2017 6:43:35 PM: Dr. Solorzano was at this patient's bedside for gcys-hm-wvph evaluation. This patient was admitted previously with new onset atrial fibrillation. He reported that he has not been taking any of his medications including his blood thinner or metoprolol. Dr. Solorzano suggested giving him 5 mg IV of metoprolol. Heart rate is down in the low 100's. IV fluids are infusing. 01/29/2017 8:18:58 PM: Dr. Lopez is currently at the patient's bedside for [id number] evaluation. This patient was officially signed out to Dr. Lopez for telemetry admission. (JELENA POWELL,RADHA) Plan of Care: Orders Procedure Date/time Status Change service to 01/31 0735 Active Discharge Patient 01/31 UNK Active Laboratory Tests 01/31/17 0613: Anion Gap 4 L, Estimated GFR > 60, BUN/Creatinine Ratio 13.6, Magnesium 1.8 Departure Departure Disposition: STILL A PATIENT Condition: Stable Clinical Impression Primary Impression: Atrial fibrillation with rapid ventricular response Secondary Impressions: Fluid overload Qualifiers: Hypervolemia type: unspecified Qualified Code: E87.70 - Fluid overload, unspecified Referrals: UNKNOWN (PCP/Family) Departure Forms: Customer Survey General Discharge Information Prescriptions: Current Visit Scripts Metoprolol Succ XL (Toprol XL) 1 TAB PO DAILY #30 TAB Digoxin (Lanoxin) 0.125 MG PO 1700 #30 TAB Admission Note Spoke With: [facility] Documentation of Exam: Documentation of any treatments & extenuating circumstances including Concerns Regarding Discharge (functional status, medication knowledge or non-compliance, living conditions, etc.) that warrant an admission rather than observation: [ This patient is a 56-year-old male the past medical history including atrial fibrillation and presented to the emergency department today for evaluation of hernia pain. This patient was found to be in atrial fibrillation with rapid ventricular response. This patient has been noncompliant with specialist follow -up as well as with his medications as an outpatient. This patient will need to be admitted to telemetry for cardiac monitoring, trend troponin levels, serial EKG, trend labs, cardiology consultation, echocardiogram, stress test, and close monitoring. Premature discharge could prove medically harmful.] (JELENA POWELL,RADHA) PA/TALENT ACQUISITION COORDINATOR Co-Sign Statement Statement: ED Attending supervision documentation- [x] I saw and evaluated the patient. I have also reviewed all the pertinent lab results and diagnostic results. I agree with the findings and the plan of care as documented in the PA's/TALENT ACQUISITION COORDINATOR's documentation. [x] I have reviewed the ED Record and agree with the PA's/TALENT ACQUISITION COORDINATOR's documentation. [] Additions or exceptions (if any) to the PAs/TALENT ACQUISITION COORDINATOR's note and plan are summarized below: [] (ROBERTO JACOBS,MARCOS) PA/TALENT ACQUISITION COORDINATOR Co-Sign Statement Statement: ED Attending supervision documentation- [x] I saw and evaluated the patient. I have also reviewed all the pertinent lab results and diagnostic results. I agree with the findings and the plan of care as documented in the PA's/TALENT ACQUISITION COORDINATOR's documentation. pt signed out to me... discussed with dr. joya who accepts pt... pt on dilt gtt, on xarelto.... will need close monitoring, rule out, rate control agents. [] I have reviewed the ED Record and agree with the PA's/TALENT ACQUISITION COORDINATOR's documentation. [] Additions or exceptions (if any) to the PAs/TALENT ACQUISITION COORDINATOR's note and plan are summarized below: [] [x] I saw and evaluated the patient. I have also reviewed all the pertinent lab results and diagnostic results. I agree with the findings and the plan of care as documented in the PA's/TALENT ACQUISITION COORDINATOR's documentation. pt signed out to me... discussed with dr. joya who accepts pt... pt on dilt gtt, on xarelto.... will need close monitoring, rule out, rate control agents. (ROME JACOBS,HORTENCIA Hassan) Critical Care Note Critical Care Note Critical Care Time: 30-74 min (ROME JACOBS,HORTENCIA Hassan) Laboratory Tests 01/29/171745: Anion Gap 13, Estimated GFR > 60, BUN/Creatinine Ratio 12.7, Glucose 132 H, Calcium 9.4, Total Bilirubin 0.7, AST 47, ALT 89 H, Alkaline Phosphatase 61, Troponin I < 0.01, Djs-C-Litjeauwddc Pept 8540 H, Total Protein 5.5 L, Albumin 3.5, Globulin 2.0, Albumin/Globulin Ratio 1.8, PT 13.7 H, INR 1.31 H, APTT 28, CBC w Diff NO MAN DIFF REQ, RBC 4.78, MCV 82.8, MCH 27.0, RDW 13.3, MPV 9.4, Gran % 72.2, Lymphocytes % 20.8, Monocytes % 6.0, Eosinophils % 0.4, Basophils % 0.6, Absolute Granulocytes 5.8, Absolute Lymphocytes 1.7, Absolute Monocytes 0.5 , Absolute Eosinophils 0, Absolute Basophils 0.1, PUBS MCHC 32.6 L, Serum Alcohol < 10.0 Diagnostic Imaging: Viewed by Me: CT Scan. Discussed w/RAD: CT Scan. Radiology Impression: PATIENT: YARON SANTIAGO PRESENT AGE: 56 PATIENT ACCOUNT NO: [id number] : 60 LOCATION: [facility] ORDERING PHYSICIAN: RADHA BOWLES PA-C SERVICE DATE: 01/29/17 EXAM TYPE: CAT - CT ABD & PELVIS W IV CONTRAST EXAMINATION: CT ABDOMEN AND PELVIS WITH CONTRAST CLINICAL INFORMATION: Abdominal pain. Assess for hernia or strangulation. COMPARISON: CT chest abdomen and pelvis 01/05/2017. TECHNIQUE: Multidetector volumetric imaging was performed of the abdomen and pelvis before and after the IV administration of 95 mL of Optiray 320 intravenous contrast. Sagittal and coronal reformatted images were obtained on the technologist's workstation. DLP: 279 mGy-cm. FINDINGS: LUNG BASES: Dependent parenchymal changes. No pleural effusion. Mildly prominent cardiac size. PERITONEAL CAVITY: Trace volume of ascites. No pneumoperitoneum. LIVER, GALLBLADDER, AND BILIARY TREE: The liver is normal in size, shape, and attenuation. No focal hepatic lesion or biliary ductal dilatation is present. There is a degree of periportal edema. The gallbladder is distended without radiodense gallstones or significant mural thickening. PANCREAS: Unremarkable. SPLEEN: Unremarkable. ADRENAL GLANDS: Unremarkable. KIDNEYS AND URETERS: The kidneys are normal in size, shape, and attenuation. No hydronephrosis, hydroureter, or calculi seen. No perinephric stranding. BLADDER: Unremarkable. GASTROINTESTINAL TRACT: Fluid-filled loops of large and small bowel are demonstrated without significant bowel distention. No evidence of acute bowel inflammation. The appendix is not discretely delineated. ABDOMINAL WALL: Diffuse mild subcutaneous edema. Small ovoid-shaped unchanged fluid pocket along the ventral mid upper abdomen measuring 2.4 x 0.9 cm is nonspecific and unchanged. LYMPH NODES: No bulky adenopathy is demonstrated. VASCULAR: Unremarkable. PELVIC VISCERA: Punctate central prostate calcifications. Seminal vesicles are unremarkable. OSSEOUS STRUCTURES: No acute osseous abnormalities. IMPRESSION: 1. Findings may reflect a degree of volume overload, with periportal edema, trace ascites, and mild subcutaneous fat stranding diffusely. 2. No evidence of bowel obstruction. Nonspecific fluid- filled loops of large and small bowel without evidence of acute inflammation or significant distention. 3. Additional nonacute findings as above. DICTATED BY: CHAKA AVILES MD DATE/TIME DICTATED:01/29/171940 WAREHOUSE WORKER:LEE DATE/TIME TRANSCRIBED:01/29/171940 CONFIDENTIAL, DO NOT COPY WITHOUT APPROPRIATE AUTHORIZATION. <Electronically signed in Other Vendor System> SIGNED BY: CHAKA AVILES MD 01/29/171957 Initial ED EKG: AFIB, no ST T wave changes, 163 bpm Comments: 01/29/2017 6:43:35 PM: Dr. Solorzano was at this patient's bedside for bgry-ir-yyfl evaluation. This patient was admitted previously with new onset atrial fibrillation. He reported that he has not been taking any of his medications including his blood thinner or metoprolol. Dr. Solorzano suggested giving him 5 mg IV of metoprolol. Heart rate is down in the low 100's. IV fluids are infusing. 01/29/2017 8:18:58 PM: Dr. Lopez is currently at the patient's bedside for zjsd-ck-qllt evaluation. This patient was officially signed out to Dr. Lopez for telemetry admission. (RADHA BOLWES PA-C) Departure Departure Disposition: STILL A PATIENT Condition: Stable Clinical Impression Primary Impression: Atrial fibrillation with rapid ventricular response Secondary Impressions: Fluid overload Qualifiers: Hypervolemia type: unspecified Qualified Code: E87.70 - Fluid overload, unspecified Referrals: UNKNOWN (PCP/Family) Departure Forms: Customer Survey General Discharge Information Admission Note Spoke With: QUINTEN JACOBSTIMOTHY Documentation of Exam: Documentation of any treatments & extenuating circumstances including Concerns Regarding Discharge (functional status, medication knowledge or non-compliance, living conditions, etc.) that warrant an admission rather than observation: [ This patient is a 56-year-old male the past medical history including atrial fibrillation and presented to the emergency department today for evaluation of hernia pain. This patient was found to be in atrial fibrillation with rapid ventricular response. This patient has been noncompliant with specialist follow -up as well as with his medications as an outpatient. This patient will need to be admitted to telemetry for cardiac monitoring, trend troponin levels, serial EKG, trend labs, cardiology consultation, echocardiogram, stress test, and close monitoring. Premature discharge could prove medically harmful.] (RADHA BOWLES PA-C) PA/TALENT ACQUISITION COORDINATOR Co-Sign Statement Statement: ED Attending supervision documentation- [x] I saw and evaluated the patient. I have also reviewed all the pertinent lab results and diagnostic results. I agree with the findings and the plan of care as documented in the PA's/TALENT ACQUISITION COORDINATOR's documentation. [x] I have reviewed the ED Record and agree with the PA's/TALENT ACQUISITION COORDINATOR's documentation. [] Additions or exceptions (if any) to the PAs/TALENT ACQUISITION COORDINATOR's note and plan are summarized below: [] (ROBERTO JACOBS,MARCOS) PA/TALENT ACQUISITION COORDINATOR Co-Sign Statement Statement: ED Attending supervision documentation- [x] I saw and evaluated the patient. I have also reviewed all the pertinent lab results and diagnostic results. I agree with the findings and the plan of care as documented in the PA's/TALENT ACQUISITION COORDINATOR's documentation. pt signed out to me... discussed with dr. joya who accepts pt... pt on dilt gtt, on xarelto.... will need close monitoring, rule out, rate control agents. [] I have reviewed the ED Record and agree with the PA's/TALENT ACQUISITION COORDINATOR's documentation. [] Additions or exceptions (if any) to the PAs/TALENT ACQUISITION COORDINATOR's note and plan are summarized below: [] [x] I saw and evaluated the patient. I have also reviewed all the pertinent lab results and diagnostic results. I agree with the findings and the plan of care as documented in the PA's/TALENT ACQUISITION COORDINATOR's documentation. pt signed out to me... discussed with dr. joya who accepts pt... pt on dilt gtt, on xarelto.... will need close monitoring, rule out, rate control agents. (ROME JACOBS,HORTENCIA Hassan) Critical Care Note Critical Care Note Critical Care Time: 30-74 min (ROME JACOBS,HORTENCIA Hassan) Critical Care Time: 30-74 min (ROME JACOBS,HORTENCIA Hassan)
--- NOTE | 2017-01-29 17:50 | NUR ---
SEEN BY AMANDA BOWLES. ON TELE MONITOR, RAPID AFIB 120S-170S. C/O NAUSEA. MANUAL BP 124/72. IV EST, BLOOD SENT (SST/LAV/BLUE/LEIGH/PINK). PA AT BEDSIDE NOW.
[2017-01-29 17:56] LABS: ABSOLUTE BASOPHIL COUNT 0.1 /CUMM (0.0-0.2); ABSOLUTE EOSINOPHIL COUNT 0 /CUMM (0.0-0.7); ABSOLUTE GRANULOCYTE CT 5.8 /CUMM (1.4-6.5); ABSOLUTE LYMPH COUNT 1.7 /CUMM (1.2-3.4); ABSOLUTE MONOCYTE COUNT 0.5 /CUMM (0.10-0.60); BASOPHIL % 0.6 % (0.0-2.0); EOSINOPHIL % 0.4 % (0-5); GRANULOCYTE % 72.2 % (42.2-75.2); HEMATOCRIT 39.6 % (42-52); MEAN CORPUSCULAR HGB CONC 32.6 G/DL (33.0-37.0); MEAN CORPUSCULAR VOLUME 82.8 FL (80.0-94.0); MEAN PLATELET VOLUME 9.4 FL (7.4-10.4); PLATELET COUNT 192 /CUMM (130-400); RBC DISTRIBUTION WIDTH 13.3 % (11.5-14.5); RED BLOOD CELL CT 4.78 /CUMM (4.70-6.10); WHITE BLOOD CELL COUNT 8.1 /CUMM (4.8-10.8)
[2017-01-29 18:06] LABS: PT 13.7 SEC (9.4-12.5); PTT 28 SEC (25-37)
--- NOTE | 2017-01-29 18:08 | NUR ---
MEDICATED PER EMAR, IVF INFUSING. HR IMPROVED TO 110S-130S.
--- NOTE | 2017-01-29 18:17 | NUR ---
DR MEJIA AT BEDSIDE
--- NOTE | 2017-01-29 18:29 | NUR ---
FLUID BOLUS INFUSING PER DR MEJIA, WILL RECHECK BP/PULSE AFTER COMPLETION. CURRENTLY PULSE 100S-130S.
--- NOTE | 2017-01-29 19:09 | NUR ---
DR MEJIA UPDATED WITH VS. PT TO RECIEVE 2.5MG LOPRESSOR WITH ANOTHER 1 LITER NS--AWARE OF BP AND STATING LOWERING HR WILL IMPROVE BP-PT AT CT CURRENTLY WITH IVF INFUSING, WILL GIVE LOPRESSOR UPON RETURN.
--- NOTE | 2017-01-29 19:49 | NUR ---
RETURNED FROM CT AND LOPRESSOR GIVEN, HR AFIB 100S-110S, BP IMMED AFTER , REMAINS ON MONITOR WITH CYCLING BPS, REMAINS ALERT, NO COMPLAINTS AT THIS TIME.
--- NOTE | 2017-01-29 19:58 | CT SCAN REPORT ---
EXAMINATION: CT ABDOMEN AND PELVIS WITH CONTRAST CLINICAL INFORMATION: Abdominal pain. Assess for hernia or strangulation. COMPARISON: CT chest abdomen and pelvis 01/05/2017. TECHNIQUE: Multidetector volumetric imaging was performed of the abdomen and pelvis before and after the IV administration of 95 mL of Optiray 320 intravenous contrast. Sagittal and coronal reformatted images were obtained on the technologist's workstation. DLP: 279 mGy-cm. FINDINGS: LUNG BASES: Dependent parenchymal changes. No pleural effusion. Mildly prominent cardiac size. PERITONEAL CAVITY: Trace volume of ascites. No pneumoperitoneum. LIVER, GALLBLADDER, AND BILIARY TREE: The liver is normal in size, shape, and attenuation. No focal hepatic lesion or biliary ductal dilatation is present. There is a degree of periportal edema. The gallbladder is distended without radiodense gallstones or significant mural thickening. PANCREAS: Unremarkable. SPLEEN: Unremarkable. ADRENAL GLANDS: Unremarkable. KIDNEYS AND URETERS: The kidneys are normal in size, shape, and attenuation. No hydronephrosis, hydroureter, or calculi seen. No perinephric stranding. BLADDER: Unremarkable. GASTROINTESTINAL TRACT: Fluid-filled loops of large and small bowel are demonstrated without significant bowel distention. No evidence of acute bowel inflammation. The appendix is not discretely delineated. ABDOMINAL WALL: Diffuse mild subcutaneous edema. Small ovoid-shaped unchanged fluid pocket along the ventral mid upper abdomen measuring 2.4 x 0.9 cm is nonspecific and unchanged. LYMPH NODES: No bulky adenopathy is demonstrated. VASCULAR: Unremarkable. PELVIC VISCERA: Punctate central prostate calcifications. Seminal vesicles are unremarkable. OSSEOUS STRUCTURES: No acute osseous abnormalities. IMPRESSION: 1. Findings may reflect a degree of volume overload, with periportal edema, trace ascites, and mild subcutaneous fat stranding diffusely. 2. No evidence of bowel obstruction. Nonspecific fluid-filled loops of large and small bowel without evidence of acute inflammation or significant distention. 3. Additional nonacute findings as above.
--- NOTE | 2017-01-29 21:21 | NUR ---
CARDIZEM GTT STARTED, HOUSE STAFF AT BEDSIDE.
--- NOTE | 2017-01-29 22:11 | NUR ---
HR IMPROVING TO 90S-100S. AWAITING BED ASSIGNMENT.
--- NOTE | 2017-01-29 22:19 | NUR ---
PT ASSIGNED TO ROOM 180 BED 2
--- NOTE | 2017-01-29 22:25 | NUR ---
PT TO XRAY
--- NOTE | 2017-01-29 22:34 | History & Physical ---
IMELDA FRANKLIN MD 01/29/17 2234: General Information and [facility] MD Statement: I have seen and personally examined YARON SANTIAGO and documented this H&P. The patient is a 56 year old M who presented with a patient stated chief complaint of persistent/worsening abdominal pain and poor appetite. Source of Information: patient Exam Limitations: no limitations History of Present Illness: 56-year-old man with significant past medical history of recent hospitalization for new onset atrial fibrillation with rapid ventricular response and EtOH dependence, and homelessness with medication noncompliance seen for evaluation of "hernia pain". Patient was admitted to [facility] from 01/05/17-01/11/17 with "GERD-like symptoms" and associated epigastric pain/discomfort. Patient was found to be in atrial fibrillation with rapid ventricular rate which was subsequently controlled with Cardizem and digoxin. Echocardiogram at this time demonstrated global reduction in left ventricular systolic function with an ejection fraction of 20%. He was subsequently successfully cardioverted and discharged on Toprol- XL, lisinopril, and Xarelto with instruction to follow-up with Tony Fitzgerald MD within 7 days of discharge.He was made a referral to gastroenterology for further evaluation ventral abdominal hernia and associated abdominal pain which he failed to follow-up with. Presently patient is complaining of 5/10 epigastric abdominal pain associated with poor appetite. He states that this pain is worsened with food and that he feels that "food gets stuck" which causes his pain and attributes his "heart problems" to this. Patient states that he has not taken any of his medications since discharge stating that he doesn't "believe in meds". He is demanding that "something be done" about his abdominal pain. He admits to constipation and anorexia but reports passing gas and otherwise denies any bright red blood per rectum or dark/tarry stool. Additionally he denies any blurred/double vision, lightheadedness/dizziness, headache, fever, chills, chest pain, palpitations, shortness of breath, cough, nausea, numbness/tingling, urinary frequency/urgency/burning/pain. PMHx: Atrial Fibrillation, Ventral Abdominal hernia, EtOH Dependence Allergies/Medications Allergies: Coded Allergies: Penicillins (UNKNOWN 01/05/17) Home Med list Dicyclomine Hydrochloride (Bentyl) 10 MG CAPSULE 1 CAP PO 4 TIMES/DAY PRN Abdominal pain Lisinopril 2.5 MG TABLET 1 TAB PO DAILY HTN Metoprolol Succ XL (Toprol XL) 25 MG TAB 1.5 TAB PO DAILY HTN Omeprazole Magnesium (Prilosec Otc) 20 MG TABLET.DR 1 TAB PO DAILY GERD Polyethylene Glycol 3350 (Miralax) 17 GRAM/DOSE POWDER 17 GM PO DAILY PRN Constipation mix with water, juice, soda, coffee or tea Rivaroxaban (Xarelto) 20 MG TABLET 1 TAB PO QPM Anticoagulant with food Past History Travel History Traveled to [place] past 21 day No Medical History Neurological: NONE EENT: NONE Cardiovascular: AFIB, IRREGULAR CARDIOVERSION Respiratory: NONE Gastrointestinal: ventral hernia Hepatic: NONE Renal: NONE Musculoskeletal: NONE Psychiatric: NONE Endocrine: NONE Blood Disorders: NONE Cancer(s): NONE ENGAGEMENT SPECIALIST/Reproductive: NONE History of MRSA: No History of VRE: No History of CDIFF: No Surgical History Surgical History: non-contributory Past Family/Social History Family History Relations & Conditions if any MOTHER, ; Cause: Myocardial infarct. Psychosocial History Services at Home: None Primary Language: Kyrgyz ETOH Use: occasional use Illicit Drug Use: marijuana Functional Ability ADLs Independent: dressing, eating, toileting, bathing. IADLs Independent: shopping, housework, finances, food prep, telephone, transportation , medication admin. Review of Systems Review of Systems Constitutional: Reports: see HPI. Exam & Diagnostic Data Last 24 Hrs of Vital Signs/I&O Vital Signs Date Time Temp Pulse Resp B/P Pulse O2 O2 Flow FiO2 Ox Delivery Rate 01/29 2254 98.4 90 20 109/80 88 Room Air 01/29 2119 97.5 121 20 102/73 94 Room Air 01/29 2034 98.5 122 18 98/77 01/29 2034 98.5 122 18 98/77 93 Room Air 01/29 1947 97.4 121 18 92/68 01/29 1947 105 99/73 01/29 1938 97.4 121 18 92/68 93 Room Air 01/29 1910 97.4 124 20 92/59 94 Room Air 01/298 96 01/29 1817 136 20 92/64 96 Room Air 01/29 1807 122 20 102/64 96 Room Air 01/29 1806 96.0 143 16 124/72 01/29 1750 143 16 124/72 95 Room Air 01/29 1718 96.0 78 22 166/94 93 Room Air Physical Exam General Appearance Alert, Oriented X3, No Acute Distress Skin No Rashes, No Breakdown, No Significant Lesion HEENT Atraumatic, PERRLA, EOMI, Mucous Membr. moist/pink Neck Supple, No JVD, +2 Carotid Pulse wo Bruit, No LAD Cardiovascular Normal S1, Normal S2, Irregular rate Lungs Clear to Auscultation, Normal Air Movement Abdomen Normal Bowel Sounds, Soft, No Masses, 1.5" ciruclar epigastric midline abdominal wall hernia with associated tenderness easily reducible to palpation with associated full on increased intraabdominal pressure Neurological Normal Speech, Normal Tone, Cranial Nerves 3-12 NL Extremities No Clubbing, No Cyanosis, No Edema, Normal Pulses, No Tenderness/ Swelling Vascular Normal Pulses, Pulses Symmetrical Last 24 Hrs of Labs/Armond: Laboratory Tests 01/29/17 1746: Anion Gap 13, Estimated GFR > 60, BUN/Creatinine Ratio 12.7, Glucose 132 H, Calcium 9.4, Total Bilirubin 0.7, AST 47, ALT 89 H, Alkaline Phosphatase 61, Troponin I < 0.01, Flz-G-Nmyakxtotoj Pept 8540 H, Total Protein 5.5 L, Albumin 3.5, Globulin 2.0, Albumin/Globulin Ratio 1.8, PT 13.7 H, INR 1.31 H, APTT 28, CBC w Diff NO MAN DIFF REQ, RBC 4.78, MCV 82.8, MCH 27.0, RDW 13.3, MPV 9.4, Gran % 72.2, Lymphocytes % 20.8, Monocytes % 6.0, Eosinophils % 0.4, Basophils % 0.6, Absolute Granulocytes 5.8, Absolute Lymphocytes 1.7, Absolute Monocytes 0.5 , Absolute Eosinophils 0, Absolute Basophils 0.1, PUBS MCHC 32.6 L, Serum Alcohol Pending Diagnostic Data EKG Results Atrial Fibrillation with RVR HR 163 QTc 495 Left ventricular hypertrophy T-wave flatting, inferior leads New T-wave inversion V5-6 CXR Results IMPRESSION: Diffuse interstitial prominence suspicious for sequela of pulmonary/interstitial edema. Nonspecific lower lobe opacification on the lateral projection posteriorly. Other Results EXAM TYPE: CAT - CT ABD & PELVIS W IV CONTRAST IMPRESSION: 1. Findings may reflect a degree of volume overload, with periportal edema, trace ascites, and mild subcutaneous fat stranding diffusely. 2. No evidence of bowel obstruction. Nonspecific fluid-filled loops of large and small bowel without evidence of acute inflammation or significant distention. 3. Additional nonacute findings as above. Assessment/Plan Assessment: 56-year-old homeless man recently admitted for new onset atrial fibrillation with those stated severe systolic dysfunction seen for evaluation of persistent/ worsening abdominal pain, medication noncompliance, and atrial fibrillation with rapid ventricular response. ED course: -Vitals: Temp 96.0-98.4, HR 78-163, RR 18-22, BP 92-166/59-94, O2 88-96% on room air -Significant labs: WBC 8.1, Hgb/HCT 12.9/39.6, normal serum chemistries/LFTs, troponin <0.01, BNP 8540, PT 13.7, INR 1.31 -Studies: CT abdomen/pelvis-findings suggestive of volume overload with periportal edema, trace ascites, and mild subcutaneous fat stranding without evidence of bowel obstruction or acute inflammation/distention and a small ovoid shaped unchanged fluid pocket along the ventral mid upper abdomen, EKG demonstrating atrial fibrillation with tachycardia, prolonged QT interval, left ventricular hypertrophy and T-wave flattening in inferior leads and T-wave inversions in V5-6 -Interventions: Valium 5 mg IV, Cardizem 30 mg by mouth, Toprol 2.5 mg IV, normal saline 3 L, Cardizem drip Atrial fibrillation with rapid ventricular response Patient previously hospitalized for new onset atrial fibrillation with rapid ventricular response whom was subsequently cardioverted and discharged on Toprol , lisinopril and Xarelto. Patient reports medication noncompliance stating that he doesn't "believe in medications". -Telemetry -Trend troponins/EKG -Metoprolol 5 mg IV every 6 hours -Xarelto 20 mg by mouth daily -Nothing by mouth overnight for possible cardioversion in morning Severe left ventricular systolic dysfunction Echocardiogram on 01/10/17 demonstrated moderate left ventricular dilatation, no left ventricular hypertrophy, and severely reduced global left ventricular systolic function with left ventricular ejection fraction estimated at 15%. Physical examination is not b2b outside sales representative of overt volume overload at this time. -Strict ins and outs, daily weights -Avoid aggressive intravascular fluid infusion -Digoxin 0.5 mg IV loading dose -Digoxin 0.25 mg IV at 6 AM tomorrow Abdominal discomfort possible ventral hernia Patient has a 1.5 inch diameter midline epigastric abdominal wall defect with mild tenderness to palpation that becomes full with cough. Patient reports severe abdominal discomfort associated to this. He was given a referral to gastroenterology after discharge from his previous hospitalization which she failed to follow-up with. -Protonix 40 mg IV daily -GI consult -Gen. surgery consult -Pain control History of alcohol dependence -Follow-up urine toxicology/serum alcohol -[facility] protocol Chronic homelessness -beef cattle farm worker consult Pain plan-morphine Diet-nothing by mouth as above DVT prophylaxis-Alps/anticoagulation CODE STATUS-full code As Ranked By This Provider Problem List: 1. Rapid atrial fibrillation Core Measures/Miscellaneous Acute Coronary Syndrome ACS Diagnosis: No Cerebrovascular Accident CVA/TIA Diagnosis: No Congestive Heart Failure CHF Diagnosis: No Venous Thromboembolism VTE Risk Factors: Acute medical illness, Age > 40 No [facility] VTE prophylaxis d/t: No contraindications No VTE Pharm Prophylaxis d/t: No contraindications VTE Diagnosis: No VTE Type: NONE VTE Confirmed by (Test): NONE Severe Sepsis Severe Sepsis Present: No Septic Shock Septic Shock Present: No Miscellaneous Documentation Attending Case Discussed With: QUINTEN JACOBS,[facility] Primary Care Physician: UNKNOWN Patient sees these Specialists Dr. Fitzgerald Level of Patient Care: Telemetry Consults Needed: 1 Consulting Specialty: Cardiology Consults Needed: 2 Consulting Specialty: Gastroenterology Consults Needed: 3 Consulting Specialty: General Surgery LAURA ROMEROCORIE 01/29/17 0032: Resident Review Statement Resident Statement: examined this patient, discussed with manager of internal, agreed with manager of internal, reviewed images, amended to note Other Findings: 56 year old gautam, with hx of newly found afib, who supposedly on Xarelto and metoprolol and lisinopril pending but did not take his medication after recent discharge from detention came the chief complaint of abdominal pain. Patient reported that he hasn't eaten for 2 days due to severe abdominal pain and epigastric swelling(purple bump) which propmted him to come to the hospital. Patient is homeless, and also expresses using cannabis as well. Patient denies any diarrhea,chest pain ,nausea, headache, blurry vision, dizziness, fever, chills, urinary symptoms, joint pain. He does report of heart palpitation as well. Upon interviewing the patient he was very frustrated with his abdominal pain. Upon arrival in these was found to be on A. fib with RVR, received by mouth Cardizem, IV Cardizem, IV push Lopressor, 3 L of normal saline bolus. Patient last EF about less than months ago by a TIEN was 15%. His vital signs are recorded above. Physical examination was notable for tachycardia, epigastric tenderness with 6 x 6 bulging area when patient coughs, ankle edema of the right foot. Mildly elevated AST, hg 12.9, BNP 8500 EKG showed atrial fibrillation, 121, inverted T's in V5 and V6, QTC 495, prominent T waves in V2 v3 , no acute ST-T changes CXR suggestive of interstitial edema Assessment and plan #A. fib with RVR due to noncompliance with EF of 15% -NPO for now -EKG and troponin 3 -Tony Fitzgerald MD already aware -Stop the Cardizem and put the patient on 5 mg IV Lopressor if systolic blood pressure is more than 100 -Stat IV digoxin 0.5 mg now and 0.25 mg IV 6 hours later -CBC and BEP in the morning -No IV hydration for now -Continue Xarelto #Abdominal pain -Surgery and GI consult in the morning -NPO for now -IV PPI -we can consider tigan if patient has nausea -IV morphine for pain #homeless/ using canabis -Social work -Check urine tox and serum alcohol level Full code, DVT prophylaxis Xarelto and Alps, morphine for pain, NPO QUINTEN JACOBS,TONY 01/30/17 1330: Attending Review Statement Attending Statement Attending Statement: examined this patient, discuss w/resident/PA/RESEARCH INSTRUCTOR, reviewed EMR data (avail), discussed with nursing, reviewed images, amended to note (see my note)
--- NOTE | 2017-01-29 22:49 | NUR ---
REPORT CALLED TO [facility]. BED IS READY. 2 UNSUCCESSFUL ATTEMPTS FOR 2ND IV, PARACHUTE PANEL JOINER AT BEDSIDE NOW TO ATTEMPT 2ND LINE. PT PLACED ON 2L NC FOR 02 SATS 88-90 ON RA.
--- NOTE | 2017-01-29 22:57 | RADIOLOGY REPORT ---
EXAMINATION: XR CHEST CLINICAL INFORMATION: Atrial fibrillation. COMPARISON: CTA chest 01/05/2017. TECHNIQUE: 2 views of the chest were obtained. FINDINGS: The lungs are borderline hyperexpanded. There is diffuse interstitial prominence. Opacification is demonstrated over the lower lobes on the lateral projection posteriorly. No large pleural effusion. The cardiac contour is mildly prominent unchanged. No acute osseous abnormalities. IMPRESSION: Diffuse interstitial prominence suspicious for sequela of pulmonary/interstitial edema. Nonspecific lower lobe opacification on the lateral projection posteriorly.
[2017-01-30 00:20] VITALS: BP 100/80
--- NOTE | 2017-01-30 07:39 | NUR ---
0235 PATIENT HAD A 7 BEAT RUN OF V-TACH.ALERT AND VERBALLY RESPONSIVE.DENIES PAIN OR DISCOMFORT.VITAL STABLE.ACID TANK CLEANER RIGOBERTO MADE AWARE.REFUSED TO HAVE TROPONINS DRAWN.AT 0000
[2017-01-30 08:02] VITALS: BP 102/78
--- NOTE | 2017-01-30 08:42 | PN- Housestaff ---
ZAHRA HERNANDEZSHANNASatya 01/30/17 0842: Subjective Follow-up For: Abdominal pain Kennedy roldan Tele-Events Since Last Visit: Kennedy roldan a flutter, heart rate 69-109 had 2 episodes of 7 and 8 beat V. tach Subjective: Seen and examined patient. Complained about his abdominal pain and his inability to eat was more concerned about his abdominal pain felt that his abdominal pain was contributing to his heart however would try to explain to him that his heart rate also needs to be addressed. Review of Systems Constitutional: Denies: chills, diaphoresis, fever, malaise, weakness, unexplained weight loss. Cardiovascular: Denies: chest pain, edema, orthopena, palpitations, peripheral edema, syncope. Respiratory: Denies: cough, hemoptysis, orthopnea, short of breath, sputum production, stridor, wheezing. Gastrointestinal: Reports: abdominal pain. Objective Last 24 Hrs of Vital Signs/I&O Vital Signs Date Time Temp Pulse Resp B/P Pulse O2 O2 Flow FiO2 Ox Delivery Rate 01/30 0810 83 102/78 01/30 0802 98.8 83 18 102/78 92 Room Air 01/30 0600 83 102/78 01/30 0057 79 100/80 01/30 0050 79 100/80 01/30 0020 92 Nasal 2.0L Cannula 01/30 0020 97.8 90 20 100/80 92 Nasal 2.0L Cannula 01/29 2254 98.4 90 20 109/80 88 Room Air 01/29 2119 97.5 121 20 102/73 94 Room Air 01/29 2034 98.5 122 18 98/77 01/29 2034 98.5 122 18 98/77 93 Room Air 01/29 194 97.4 121 18 92/68 01/29 1947 105 99/73 01/29 1938 97.4 121 18 92/68 93 Room Air 01/29 1910 97.4 124 20 92/59 94 Room Air 01/29 1818 96 01/29 1817 136 20 92/64 96 Room Air 01/29 1807 122 20 102/64 96 Room Air 01/29 1806 96.0 143 16 124/72 01/29 1750 143 16 124/72 95 Room Air 01/29 1718 96.0 78 22 166/94 93 Room Air Intake & Output 01/30 1600 01/30 0800 01/30 0000 Intake Total 1000 Output Total Balance 1000 Intake, IV 1000 Number 1 Bowel Movements Patient 200 lb Weight Physical Exam General Appearance: Alert, Oriented X3, Cooperative, No Acute Distress, patient declined to let me examine his abdomen fully Cardiovascular: Normal S1, Normal S2, irregularly regular Lungs: Clear to Auscultation, Normal Air Movement Current Medications: Current Medications Sig/Anthony Start time Last Medication Dose Route Stop Time Status Admin Acetaminophen 650 MG Q6P PRN 01/29 2300 DC PO Diazepam 5 MG ONCE ONE 01/29 1800 DC 01/29 IV 01/29 1801 1806 Diazepam 0 .STK-MED ONE 01/29 1758 DC .ROUTE Dicyclomine HCl 10 MG 4 TIMES/DAY PRN 01/29 2300 DC PO Digoxin 0.125 MG 1700 01/30 1700 AC PO Digoxin 0.25 MG ONCE ONE 01/30 0600 DC 01/30 IV 01/30 0601 0810 Digoxin 0.5 MG ONCE ONE 01/29 2315 DC 01/30 IV 01/29 231 0050 Diltiazem HCl 0 .STK-MED ONE 01/29 2106 DC IV Diltiazem HCl 125 MG Q12H 01/29 2100 DC 01/29 Dextrose/Water 100 ML IV 211 Diltiazem HCl 30 MG STAT STA 01/29 2013 DC 01/29 PO 01/29 Metoprolol Succinate 12.5 MG DAILY 01/30 1145 AC PO Metoprolol Tartrate 5 MG Q6 01/29 2359 DC IV Metoprolol Tartrate 2.5 MG ONCE ONE 01/29 1945 DC 01/29 IV 01/29 1946 1947 Metoprolol Tartrate 0 .STK-MED ONE 01/29 1908 DC IV Metoprolol Tartrate 5 MG ONCE ONE 01/29 1800 DC 01/29 IV 01/29 180 1806 Metoprolol Tartrate 0 .STK-MED ONE 01/29 1757 DC IV Morphine Sulfate 2 MG Q6P PRN 01/29 2315 DC IV Omeprazole 20 MG DAILY AC 01/30 0700 CAN PO Pantoprazole Sodium 40 MG DAILY 01/30 1000 AC IV Rivaroxaban 20 MG 1700 01/30 1700 AC PO Rivaroxaban 20 MG DAILY 01/30 1000 CAN PO Rivaroxaban 20 MG ONCE ONE 01/29 2100 DC 01/29 PO 01/29 2101 2146 Sodium Chloride 1,000 ML BOLUS ONE 01/29 1945 DC 01/29 IV 01/30 2044 194 Sodium Chloride 1,000 ML BOLUS ONE 01/29 1830 DC 01/29 IV 01/29 1929 1845 Sodium Chloride 1,000 ML ONCE ONE 01/29 1800 DC 01/29 IV 01/30 0039 1806 Last 24 Hrs of Lab/Armond Results Last 24 Hrs of Labs/Mics: Laboratory Tests 01/30/17 0608: Anion Gap 7, Estimated GFR > 60, BUN/Creatinine Ratio 10.8, Magnesium 1.9, Total Bilirubin 0.6, Direct Bilirubin 0.4, AST 45, ALT 83 H, Alkaline Phosphatase 61, Troponin I 0.02, Total Protein 5.0 L, Albumin 3.1 L, CBC w Diff NO MAN DIFF REQ, RBC 4.55 L, MCV 83.3, MCH 27.0, RDW 13.4, MPV 10.4, Gran % 72.3, Lymphocytes % 19.9 L, Monocytes % 7.0, Eosinophils % 0.3, Basophils % 0.5, Absolute Granulocytes 5.8, Absolute Lymphocytes 1.6, Absolute Monocytes 0.6, Absolute Eosinophils 0, Absolute Basophils 0, PUBS MCHC 32.4 L 01/29/17 1746: Anion Gap 13, Estimated GFR > 60, BUN/Creatinine Ratio 12.7, Glucose 132 H, Calcium 9.4, Total Bilirubin 0.7, AST 47, ALT 89 H, Alkaline Phosphatase 61, Troponin I < 0.01, Dlx-[id number]-Jrceqfnaekg Pept 8540 H, Total Protein 5.5 L, Albumin 3.5, Globulin 2.0, Albumin/Globulin Ratio 1.8, PT 13.7 H, INR 1.31 H, APTT 28, CBC w Diff NO MAN DIFF REQ, RBC 4.78, MCV 82.8, MCH 27.0, RDW 13.3, MPV 9.4, Gran % 72.2, Lymphocytes % 20.8, Monocytes % 6.0, Eosinophils % 0.4, Basophils % 0.6, Absolute Granulocytes 5.8, Absolute Lymphocytes 1.7, Absolute Monocytes 0.5 , Absolute Eosinophils 0, Absolute Basophils 0.1, PUBS MCHC 32.6 L, Serum Alcohol < 10.0 Assessment/Plan Assessment: 56-year-old gentleman currently homeless, noncompliant with medication , recent hospitalization for new onset atrial fibrillation with rapid ventricular response s/p cardioversion, history of EtOH dependence, here for evaluation of abdominal pain. In ED found to be in A. fib with RVR. Chest x-ray showed diffuse interstitial prominence and nonspecific lower lobe opacification. #A. fib with RVR due to noncompliance with EF of 15% (December 2016) -NPO for now -EKG and troponin 2 -Cardiology on board appreciate recommendations, will start on 0.125 by mouth digoxin daily, will start Toprol 12.5 daily. We'll hold lisinopril for now - BEP in the morning -Continue Xarelto #Abdominal pain -Surgery and GI consulted -IV PPI -we can consider tigan if patient has nausea -IV morphine for pain #homeless/ using canabis -Social work consult - urine tox pending and no increase in serum alcohol level Full code, DVT prophylaxis Xarelto and Alps, NPO till cleared by GI Problem List: 1. Rapid atrial fibrillation 2. Abdominal pain Pain Ratin Pain Location: abdomen Pain Goal: Pain 4 or less Pain Plan: patient does not wish to have any pain meds Tomorrow's Labs & Rationales: bep Consulting Request: Consulting Specialty: General Surgery QUINTEN JACOBS,[facility] 01/30/17 1330: Attending MD Review Statement Attending Statement Attending MD Statement: examined this patient, discuss w/resident/PA/CARDIOVASCULAR TECHNICIAN, reviewed EMR data (avail), discussed with nursing, reviewed images, amended to note (see my note)
[2017-01-30 08:59] LABS: ABSOLUTE BASOPHIL COUNT 0 /CUMM (0.0-0.2); ABSOLUTE EOSINOPHIL COUNT 0 /CUMM (0.0-0.7); ABSOLUTE GRANULOCYTE CT 5.8 /CUMM (1.4-6.5); ABSOLUTE LYMPH COUNT 1.6 /CUMM (1.2-3.4); ABSOLUTE MONOCYTE COUNT 0.6 /CUMM (0.10-0.60); BASOPHIL % 0.5 % (0.0-2.0); EOSINOPHIL % 0.3 % (0-5); GRANULOCYTE % 72.3 % (42.2-75.2); HEMATOCRIT 37.9 % (42-52); MEAN CORPUSCULAR HGB CONC 32.4 G/DL (33.0-37.0); MEAN CORPUSCULAR VOLUME 83.3 FL (80.0-94.0); MEAN PLATELET VOLUME 10.4 FL (7.4-10.4); PLATELET COUNT 158 /CUMM (130-400); RBC DISTRIBUTION WIDTH 13.4 % (11.5-14.5); RED BLOOD CELL CT 4.55 /CUMM (4.70-6.10)
[2017-01-30 13:05] VITALS: BP 120/66
--- NOTE | 2017-01-30 13:21 | Cons- General Surgery ---
General Information and HPI Consulting Request Date of Consult: 01/30/17 [facility] of Present Illness: CC: abdominal pain HPI: History is limited because the patient's very aggravated regarding his situation but on review of the records, he is a 56-year-old admitted for the second time in about 4 weeks for atrial fibrillation. Initially he pointed out some epigastric discomfort is a question of whether or not this is a hernia, now that he's been readmitted surgical consult was called. He is otherwise nondiabetic ex-smoker it's noted that on the previous admission he was cardioverted and discharged her medications including beta blockers and Xarelto which she has not taken since. He denies any nausea or vomiting he's hungry it's difficult to get details from him regarding a bulge in his epigastrium whether it changes how big it gets, he's very suspicious. The duration of this is unknown also whether recent straining is unknown denies any bleeding per rectum history of present illness otherwise rather limited. Otherwise no changes bowel habits, weight or appetite. I've reviewed the [facility]. There is a family history of GA, surgical history denies surgery in that epigastric area. Allergies/Medications Allergies: Coded Allergies: Penicillins (UNKNOWN 01/05/17) Home Med List: Dicyclomine Hydrochloride (Bentyl) 10 MG CAPSULE 1 CAP PO 4 TIMES/DAY PRN Abdominal pain Digoxin (Lanoxin) 125 MCG TABLET 0.125 MG PO 1700 HEART RATE Metoprolol Succ XL (Toprol XL) 25 MG TAB 1 TAB PO DAILY HEART RATE Omeprazole Magnesium (Prilosec Otc) 20 MG TABLET.DR 1 TAB PO DAILY GERD Polyethylene Glycol 3350 (Miralax) 17 GRAM/DOSE POWDER 17 GM PO DAILY PRN Constipation mix with water, juice, soda, coffee or tea Rivaroxaban (Xarelto) 20 MG TABLET 1 TAB PO QPM Anticoagulant with food Current Medications: I reviewed Current Medications Sig/Anthony Start time Last Medication Dose Route Stop Time Status Admin Acetaminophen 650 MG Q6P PRN 01/29 2300 DC PO Diazepam 5 MG ONCE ONE 01/29 1800 DC 01/29 IV 01/29 1801 1806 Diazepam 0 .STK-MED ONE 01/29 1758 DC .ROUTE Dicyclomine HCl 10 MG 4 TIMES/DAY PRN 01/29 2300 DC PO Digoxin 0.125 MG 1700 01/30 1700 AC PO Digoxin 0.25 MG ONCE ONE 01/30 0600 DC 01/30 IV 01/30 0601 0810 Digoxin 0.5 MG ONCE ONE 01/29 2315 DC 01/30 IV 01/29 2316 0050 Diltiazem HCl 0 .STK-MED ONE 01/29 2106 DC IV Diltiazem HCl 125 MG Q12H 01/29 2100 DC 01/29 Dextrose/Water 100 ML IV 211 Diltiazem HCl 30 MG STAT STA 01/29 2013 DC 01/29 PO 01/29 Metoprolol Succinate 12.5 MG DAILY 01/30 1145 AC PO Metoprolol Tartrate 5 MG Q6 01/29 2359 DC IV Metoprolol Tartrate 2.5 MG ONCE ONE 01/29 1945 DC 01/29 IV 01/29 194 194 Metoprolol Tartrate 0 .STK-MED ONE 01/29 1908 DC IV Metoprolol Tartrate 5 MG ONCE ONE 01/29 1800 DC 01/29 IV 01/29 180 1806 Metoprolol Tartrate 0 .STK-MED ONE 01/29 1757 DC IV Morphine Sulfate 2 MG Q6P PRN 01/29 2315 DC IV Omeprazole 20 MG DAILY AC 01/30 0700 CAN PO Pantoprazole Sodium 40 MG DAILY 01/30 1000 AC IV Rivaroxaban 20 MG 1700 01/30 1700 AC PO Rivaroxaban 20 MG DAILY 01/30 1000 CAN PO Rivaroxaban 20 MG ONCE ONE 01/29 2100 DC 01/29 PO 01/29 2101 2146 Sodium Chloride 1,000 ML BOLUS ONE 01/29 1945 DC 01/29 IV 01/29 204 1947 Sodium Chloride 1,000 ML BOLUS ONE 01/29 1830 DC 01/29 IV 01/29 1929 1845 Sodium Chloride 1,000 ML ONCE ONE 01/29 1800 DC 01/29 IV 01/30 0039 1806 Past History Medical History Neurological: NONE EENT: NONE Cardiovascular: AFIB, IRREGULAR CARDIOVERSION Respiratory: NONE Gastrointestinal: ventral hernia Hepatic: NONE Renal: NONE Musculoskeletal: NONE Psychiatric: NONE Endocrine: NONE Blood Disorders: NONE Cancer(s): NONE DEGREASING SOLUTION RECLAIMER/Reproductive: NONE Surgical History Pertinent Surgical History: non-contributory Family History Relations & Conditions If Any: MOTHER, ; Cause: Myocardial infarct. Psychosocial History Where Do You Live? Home Services at Home: None Primary Language: Amharic Smoking Status: Former Smoker ETOH Use: occasional use Illicit Drug Use: marijuana Functional Ability ADLs Independent: dressing, eating, toileting, bathing. IADLs Independent: shopping, housework, finances, food prep, telephone, transportation , medication admin. Review of Systems Review of Systems: Constitutional: No fever, sweats or weight loss ENMT: No sore throat Cardiovascular: Denies chest pain Respiratory: No shortness of breath, cough, or sputum or dyspnea on exertion GI: No GERD or bleeding per rectum : No dysuria or hematuria Musculoskeletal: No new muscle weakness, bone or joint pain Skin / Breast: No jaundice, rashes or itching Psychiatric: No history of drug abuse denies any recent alcohol, no depression or anxiety Hematologic / lymphatic system: Unobtainable Exam & Diagnostic Data Vital Signs and I&O I reviewed Vital Signs Date Time Temp Pulse Resp B/P Pulse O2 O2 Flow FiO2 Ox Delivery Rate 01/30 1305 120/66 01/30 0810 83 102/78 01/30 0802 98.8 83 18 102/78 92 Room Air 01/30 0600 83 102/78 01/30 0057 79 100/80 01/30 0050 79 100/80 01/30 0020 92 Nasal 2.0L Cannula 01/30 0020 97.8 90 20 100/80 92 Nasal 2.0L Cannula 01/29 2254 98.4 90 20 109/80 88 Room Air 01/29 2119 97.5 121 20 102/73 94 Room Air 01/29 2034 98.5 122 18 98/77 01/29 2034 98.5 122 18 98/77 93 Room Air 01/29 194 97.4 121 18 92/68 01/29 1947 105 99/73 01/29 1938 97.4 121 18 92/68 93 Room Air 01/29 1910 97.4 124 20 92/59 94 Room Air 01/29 1818 96 01/29 1817 136 20 92/64 96 Room Air 01/29 1807 122 20 102/64 96 Room Air 01/29 1806 96.0 143 16 124/72 01/29 1750 143 16 124/72 95 Room Air 01/29 1718 96.0 78 22 166/94 93 Room Air I reviewed Intake & Output 01/30 0801/30 0000 01/29 1600 01/29 0800 01/29 0000 Intake Total 1000 Output Total Balance 1000 Intake, IV 1000 Number 1 Bowel Movements Patient 200 lb Weight Physical Exam: Constitutional: pleasant, no acute distress, conversant Eyes: sclera anicteric ENMT: ears and nose atraumatic, moist mucous membranes, good dentition, no lip lesions Neck: Supple, trachea is midline, no cervical or supraclavicular adenopathy and no palpable thyromegaly Cardiovascular: S1, S2, no murmurs, no peripheral edema Respiratory: clear to auscultation with normal respiratory effort and no intercostal retractions GI: abdomen soft, nontender, nondistended, no palpable hepatosplenomegaly Up high in the midline in the epigastrium is a soft roughly 2 cm nodule nontender no overlying erythema. Extremities / lymphatics: symmetrically warm, free range of motion no peripheral edema, no cervical, supraclavicular, axillary, or inguinal adenopathy Musculoskeletal: Normal gait and station, no digital cyanosis, good muscle strength and tone no atrophy, motor grossly 5 out of 5 throughout Skin: no jaundice, no rashes warm, nondiaphoretic, no areas of erythema or induration Psychiatric: mood and affect are appropriate and alert and oriented to person place and time Last 24 Hours of Labs: I reviewed Laboratory Tests 01/30 01/29 0608 1746 Chemistry Sodium (137 - 145 mmol/L) 136 L 137 Potassium (3.5 - 5.1 mmol/L) 5.2 H 4.4 Chloride (98 - 107 mmol/L) 104 102 Carbon Dioxide (22 - 30 mmol/L) 25 22 Anion Gap (5 - 16) 7 13 BUN (9 - 20 mg/dL) 13 14 Creatinine (0.7 - 1.2 mg/dL) 1.2 1.1 Estimated GFR (>60 ml/min) > 60 > 60 BUN/Creatinine Ratio (7 - 25 %) 10.8 12.7 Glucose (65 - 99 mg/dL) 132 H Calcium (8.4 - 10.2 mg/dL) 9.4 Magnesium (1.6 - 2.3 mg/dL) 1.9 Total Bilirubin (0.2 - 1.3 mg/dL) 0.6 0.7 Direct Bilirubin (< 0.4 mg/dL) 0.4 AST (17 - 59 U/L) 45 47 ALT (21 - 72 U/L) 83 H 89 H Alkaline Phosphatase (< 127 U/L) 61 61 Troponin I (<0.11 ng/ml) 0.02 < 0.01 [id number] Pept (<125 pg/mL) 8540 H Total Protein (6.3 - 8.2 g/dL) 5.0 L 5.5 L Albumin (3.5 - 5.0 g/dL) 3.1 L 3.5 Globulin (1.9 - 4.2 gm/dL) 2.0 Albumin/Globulin Ratio (1.1 - 2.2 %) 1.8 Coagulation PT (9.4 - 12.5 SEC) 13.7 H INR (0.90 - 1.17) 1.31 H APTT (25 - 37 SEC) 28 Hematology CBC w Diff NO MAN DIFF REQ NO MAN DIFF REQ WBC (4.8 - 10.8 /CUMM) 8.0 8.1 RBC (4.70 - 6.10 /CUMM) 4.55 L 4.78 Hgb (14.0 - 18.0 G/DL) 12.3 L 12.9 L Hct (42 - 52 %) 37.9 L 39.6 L MCV (80.0 - 94.0 FL) 83.3 82.8 MCH (27.0 - 31.0 PG) 27.0 27.0 RDW (11.5 - 14.5 %) 13.4 13.3 Plt Count (130 - 400 /CUMM) 158 192 MPV (7.4 - 10.4 FL) 10.4 9.4 Gran % (42.2 - 75.2 %) 72.3 72.2 Lymphocytes % (20.5 - 51.1 %) 19.9 L 20.8 Monocytes % (1.7 - 9.3 %) 7.0 6.0 Eosinophils % (0 - 5 %) 0.3 0.4 Basophils % (0.0 - 2.0 %) 0.5 0.6 Absolute Granulocytes (1.4 - 6.5 /CUMM) 5.8 5.8 Absolute Lymphocytes (1.2 - 3.4 /CUMM) 1.6 1.7 Absolute Monocytes (0.10 - 0.60 /CUMM) 0.6 0.5 Absolute Eosinophils (0.0 - 0.7 /CUMM) 0 0 Absolute Basophils (0.0 - 0.2 /CUMM) 0 0.1 PUBS MCHC (33.0 - 37.0 G/DL) 32.4 L 32.6 L Toxicology Serum Alcohol (<10 MG/DL) < 10.0 Assessment/Plan Assessment/Plan To be completed, I reviewed CTs on PACS myself from yesterday and 15th last month, both show leaked ascites from tiny 8 mm defect high in epigastrium, hasnt changed, not a surgical emergency, would try to optimize, ie heart and ascites. I feel the ascites is related to his liver and heart and thus this needs to be optimized first because at this point the risks outweigh the benefits. That tiny defect up that high may have been there a long time unchanged, and in my opinion at that size has very little risk of bowel involvement but on the other hand if one were to operate on that and the ascites persists it could leak thru and lead to infection and significant morbidity. If this defect does enlarge then we would have to reevaluate, at this point its minimally palpable. Problem List: 1. Ascites 2. Rapid atrial fibrillation 3. Transaminitis 4. Epigastric hernia Consult Acknowledgment - Thank you for your consult request.
--- NOTE | 2017-01-30 13:29 | Admission Certification ---
Admission Certification Certification Statement - As attending physician, I certify that at the time of - admission, based on clinical presentation, severity of - symptoms, need for further diagnostic testing and - therapeutic interventions, and risk of adverse outcomes - without in-hospital treatment, in my clinical assessment, - this patient requires an acute hospital stay for a minimum - of two nights or longer. I have also considered psychsocial - factors such as support system, advanced age, financial - issues, cognitive issues, and failed out-patient treatments, - past re-admission history, safety of patient, and lack of - compliance as applicable. Specific rationale supporting this admission is: Recurrent atrial fibrillation with tachycardia and history of severe cardiomyopathy along with medical noncompliance.
--- NOTE | 2017-01-30 13:41 | PN- Att Addend ---
Attending Addendum Attending Brief Note I have personally seen and examined this patient. I have personally reviewed all relevant imaging and laboratory data. I have discussed the case with the care team. 1. Recurrent atrial fibrillation with rapid ventricular response 2. Medical noncompliance (both with medications and follow-up visits) 3. 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 Intermittent Abdominal pain without evidence of bowel obstruction 5. Abnormal LFTs 6. Status post TIEN cardioversion 01/10/2017 The patient presents with abdominal discomfort similar to his episodes during his prior admission last month. When I discharged him last month he assured me that he would take his medications daily as instructed but apparently immediately discontinued all of his medications the day after discharge and also did not keep any of his follow-up appointments. He is now noted to now be back in atrial fibrillation. Follow-up GI and surgery consultations but there appears to be no indication that the patient requires emergent intervention for his intermittent abdominal discomfort. I had a long discussion with the patient today and while he will need further evaluation in the future including EGD he we will first require additional medical optimization before elective procedures can be considered. He again shows understanding of this plan and clearly understands the severe cardiac risks associated with medication and follow-up noncompliance (including but not limited to sudden cardiac and worsening of his cardiomyopathy). He again tells me he does not consume alcohol frequently and his serum alcohol level was not elevated on labs. I have advised him to abstain from any EtOH consumption. At this point we are unable to consider a repeat cardioversion attempt until I can be sure he will be able to maintain compliance with full anticoagulation therapy. We have restarted his Xarelto and will aim for a rate control strategy for the time being. We have restarted him on oral Toprol and we'll continue him on daily low-dose digoxin with continuous telemetry monitoring for the time being. Roberto Fitzgerald MD [facility]
--- NOTE | 2017-01-30 16:15 | Cons- Gastroenterology ---
General Information and HPI Consulting Request Date of Consult: 01/30/17 [facility]ed [facility] Reason for Consult: Abdominal pain Source of Information: patient, old records Exam Limitations: fair historian History of Present Illness: 56 y/o male, homeless, recently admitted to [facility] 01/05/17-01/11/17, with rapid A. fib, successfully treated with electrical cardioversion 01/10/2017 , per Dr. Fitzgerald, after 01/06/2017: TTE & 01/10/2017: TIEN failed to reveal any thrombus. His CHADS score was 1. He went back into NSR and was discharged on Xarelto, Toprol & Lisinopril, none of which he was compliant with. The patient was previously seen in inpatient GI consultation by Dr. Campos 2016, for evaluation of abdominal pain, after he was already admitted for rapid A. fib, for which he has not been compliant with treatment. He was initially started on IV heparin and IV Cardizem then, per cardiology, prior to the electrical cardioversion. CT studies then (*numerous imaging studies were reviewed by myself today, 01/30/2017, with Dr. Sandhu, of [facility]), were negative for any obstruction or any obvious source of abdominal pain. The SMA was patent, as were his other abdominal vessels. Regarding a small amount of ascites then, Dr. Campos felt there was no radiographic evidence of cirrhosis, and the patient's stable platelet count and albumin:globulin ratio went against significant portal hypertension. *IR stated moderate risk of paracentesis then, given close proximity of ascites to liver, and they advised against diagnostic paracentesis. The patient was transiently hypotensive then, probably related to rapid A. fib and tachycardia-induced cardiomyopathy, with low EF 15-20%. The patient had a mild troponin peak bump of 0.11 last admission in 12/2016, felt to be secondary to demand ischemia. A benign/functional etiology for his GI symptoms was considered, with the caveat that he follows up with the office for more definitive investigative GI studies, including potential EGD/colonoscopy, after his cardiac issues stabilized. The patient's transaminases were elevated then, with normal alkaline phosphatase and TBil, and these were felt to be from either passive congestion vs. shock liver/ ischemic hepatitis, possibly with a minor component of EtOH. The patient remotely abused alcohol, but denies this at present, as he "can't afford it." No biliary pathology was seen on subsequent ultrasound. *Specifically, 01/05/2017: CTA CHEST/CT ABDOMEN AND PELVIS WITH IV CONTRAST- 1. Normal CT of thoracic and abdominal aorta. No dissection. No PE. 2. Scattered groundglass and nodular airspace opacities in the lungs bilateral. Would favor an infectious or inflammatory etiology. No pathologic- sized adenopathy. 3. Small volume abdominal ascites, around the liver, gallbladder, spleen, and B/ L paracolic gutter, with some layering in the pelvis at the cul-de-sac. No free air or obstruction. No hernia. 4. Normal enhancement of the vasculature. No aneurysm or dissection of the aorta. Normal enhancement of the celiac axis, SMA, renal arteries and iliac arteries. 01/07/2017: US ABDOMEN (RUQ) LIMITED- 1. Small amount of ascites in the RUQ & LUQ. 2. No evidence of cholelithiasis or cholecystitis. Normal CBD 4 mm. 3. Unremarkable liver. Antispasmodics, Omeprazole, and MiraLAX were advised, along with checking viral hepatitis panel, VIKI, and iron studies. *Although the patient remotely had 06/08/2008: [EtOH] 179.5, subsequent EtOH levels on 01/05/2017 & 01/29/2017 were < 10. 01/05/2017: amylase < 30, lipase 51, nl lactate 1.8 01/06/2017: *VIKI- negative 1:40. 01/06/2017: *Fe 44, TIBC 302, borderline low Fe sat 14%, ferritin 128. 01/06/2017: U/A- negative. 01/07/2017: *Hep A Ab, Hep Bs Ag, Hep C Ab & Hep B core Ab- all negative. 01/10/17: TRANSESOPHAGEAL ECHO- Moderate left ventricular dilatation. No left ventricular hypertrophy. Severely reduced global left ventricular systolic function. Left ventricular ejection fraction is estimated at 15 %. Normal right ventricular size. Mildly reduced right ventricular global systolic function. Mild to moderate right atrial dilatation. Mild to moderate left atrial dilatation. No thrombus detected in the left atrial appendage. Small interatrial shunt by Color Doppler. [id number] mitral regurgitation. Following the TIEN the patient was cardioverted from atrial fibrillation to SR using 200 J of energy. Tony Fitzgerald M.D. The patient never followed up with Dr. Fitzgerald or with Dr. Campos as an outpatient, and as previously stated, he stopped all of his medications. The patient is very suspicious of allopathic medicine, and is fixated on what I feel is a probable sebaceous cyst in his anterior abdominal wall, as the cause for both his GI and cardiac issues! *The patient returned to the [facility] 01/29/2017 5:04 PM, complaining of "hernia pains" (no hernia seen on multiple imaging studies, but rather a probable sebaceous cyst in the anterior abdominal wall). Upon arrival to the ER , BP 166/94, P 78, R 22, T 96, with O2 sat RA 93%. He was in atrial fibrillation, followed by rapid VR 120's-170's, with a drop in his systolic blood pressure to the 90's. He was given IV Metoprolol, IV Diazepam & IV NS. He then felt like he was going to "pass out." A Cardizem drip was rxd, with ventricular response going down to the 90's, and he was admitted to telemetry. 01/29/2017: Admission labs- WBC 8.1, H/H 12.9/39.6, nl MCV, PLT 192, PT 15.7, INR 1.31, PTT 28, glucose 132, BUN/Cr 14/1.1, GFR > 60, Na 137, K 4.4, HCO3 22, AG 13, Ca2+ 9.4, abdomen 3.5, globulin 2.0, TBil 0.7, alk phos 61, AST 47, ALT 89, troponin < 0.01, [EtOH] < 10, elevated BNP 8540 01/30/2017: WBC 8.0, H/H 12.3/37.9, nl MCV, PLT 158, BUN/Cr 13/1.2, GFR > 60, Na 136, K 5.2, HCO3 25, AG 7, Mg 1.9, albumin 3.1, globulin 1.9, TBil 0.6, DBil 0.4 , alk phos 61, AST 45, ALT 83, troponin .02 The patient was seen by Dr. Servin, of surgery, 01/30/2017, and was felt not to have any acute surgical issues at this time. The patient is currently belligerent and irrate. He is upset at me that he has not yet eaten, although I just met him 5 minutes ago. He is upset that "no one knows why he gets an irregular beat," and "no one knows what is causing his hernia." I repeatedly told him that there is no hernia, but rather, probably a cyst in his abdominal wall. It is hard for him to focus. I told him repeatedly that attention at the moment should be focused on his cardiac issues, so that eventually his GI issues can be better addressed. When I was inquiring about alcohol regarding his arrhythmia, cardiomyopathy, and abdominal symptoms, he told me I was going on a "fishing expedition." He refuses to answer questions but his family history and answered limited questions about his social history. He denies taking any aspirin or NSAIDs. He is a remote smoker. He claimed he last drank alcohol call "when in school," although he did have positive alcohol levels 06/08/2008. He denies any illicit drug use, except for marijuana. The patient has never had an EGD or baseline screening colonoscopy. He claims that he gets swelling in the upper abdomen after eating, which "blocks him". He stated that, he gets this pain without eating as well. He claims that it "grabs his colon like a pair of pliers" and that the upper epigastric region "enlarges and turns purple". He had a bowel movement today. He denies any long-standing diarrhea, constipation, obstipation, tenesmus, change in stool caliber, rectal bleeding, or melena. He denies any fevers, chills, or jaundice. He is uncertain as to weight loss. His appetite is good. He denies any reflux, nausea, vomiting, hematemesis, or early satiety. He denies any previous abdominal surgery. He currently denies any chest pain or shortness of breath. He did have palpitations in the ER. The patient refuses to answer any further questions. 01/30/2017: EKG- afib @ 99, normal axis, prolonged QT interval, PRWP, flipped T laterally. 01/29/2017: CT ABDOMEN AND PELVIS WITH IV CONTRAST- 1. Findings may reflect a degree of volume overload, with periportal edema, trace ascites, and mild subcutaneous fat stranding diffusely. 2. No evidence of bowel obstruction. Nonspecific fluid-filled loops of large and small bowel without evidence of acute inflammation or significant distention. 3. Additional nonacute findings as above. [*The patient is focused on diffuse mild subcutaneous edema. Small ovoid-shaped unchanged fluid pocket along the ventral mid upper abdomen measuring 2.4 x 0.9 cm is nonspecific and unchanged. Most likely, this is a sebaceous cyst. I reviewed the studies with Dr. Sandhu, of [facility], who agrees this is an incidental finding. *There is absolutely no hernia in this region.] 01/29/2017: XRY-CHEST XRAY, PA AND LATERAL- Diffuse interstitial prominence suspicious for sequela of pulmonary/interstitial edema. Nonspecific lower lobe opacification on the lateral projection posteriorly. Allergies/Medications Allergies: Coded Allergies: Penicillins (UNKNOWN 01/05/17) Home Med List: Dicyclomine Hydrochloride (Bentyl) 10 MG CAPSULE 1 CAP PO 4 TIMES/DAY PRN Abdominal pain Lisinopril 2.5 MG TABLET 1 TAB PO DAILY HTN Metoprolol Succ XL (Toprol XL) 25 MG TAB 1.5 TAB PO DAILY HTN Omeprazole Magnesium (Prilosec Otc) 20 MG TABLET.DR 1 TAB PO DAILY GERD Polyethylene Glycol 3350 (Miralax) 17 GRAM/DOSE POWDER 17 GM PO DAILY PRN Constipation mix with water, juice, soda, coffee or tea Rivaroxaban (Xarelto) 20 MG TABLET 1 TAB PO QPM Anticoagulant with food Current Medications: Current Medications Sig/Anthony Start time Last Medication Dose Route Stop Time Status Admin Acetaminophen 650 MG Q6P PRN 01/29 2300 DC PO Dicyclomine HCl 10 MG 4 TIMES/DAY PRN 01/29 2300 DC PO Digoxin 0.125 MG 1700 01/30 1700 AC 01/30 PO 1715 Digoxin 0.25 MG ONCE ONE 01/30 0600 DC 01/30 IV 01/30 0601 0810 Digoxin 0.5 MG ONCE ONE 01/29 2315 DC 01/30 IV 01/29 2316 0050 Diltiazem HCl 0 .STK-MED ONE 01/29 2106 DC IV Diltiazem HCl 125 MG Q12H 01/29 2100 DC 01/29 Dextrose/Water 100 ML IV 211 Diltiazem HCl 30 MG STAT STA 01/29 2013 DC 01/29 PO 01/29 Metoprolol Succinate 12.5 MG DAILY 01/30 1145 AC 01/30 PO 1424 Metoprolol Tartrate 5 MG Q6 01/29 2359 DC IV Metoprolol Tartrate 2.5 MG ONCE ONE 01/29 1945 DC 01/29 IV 01/29 194 1947 Metoprolol Tartrate 0 .STK-MED ONE 01/29 1908 DC IV Morphine Sulfate 2 MG Q6P PRN 01/29 2315 DC IV Omeprazole 20 MG DAILY AC 01/30 0700 CAN PO Pantoprazole Sodium 40 MG DAILY 01/30 1000 AC IV Rivaroxaban 20 MG 1700 01/30 1700 AC 01/30 PO 1715 Rivaroxaban 20 MG DAILY 01/30 1000 CAN PO Rivaroxaban 20 MG ONCE ONE 01/29 2100 DC 01/29 PO 01/29 2101 2146 Sodium Chloride 1,000 ML BOLUS ONE 01/29 1945 DC 01/29 IV 01/29 2044 1947 Sodium Chloride 1,000 ML BOLUS ONE 01/29 1830 DC 01/29 IV 01/29 1929 1845 Sodium Chloride 1,000 ML ONCE ONE 01/29 1800 DC 01/29 IV 01/30 0039 1806 Past History Travel History Traveled to [place] past 21 day No Medical History Blood Transfusion Hx: No Neurological: NONE EENT: NONE Cardiovascular: AFIB, IRREGULAR CARDIOVERSION Respiratory: NONE Gastrointestinal: ventral ? cyst in upper abdominal wall Hepatic: abnl transaminases Renal: NONE Musculoskeletal: NONE Psychiatric: anxiety, agitation Endocrine: NONE Blood Disorders: NONE Cancer(s): NONE PERL PROGRAMMER/Reproductive: NONE Surgical History Surgical History: non-contributory Family History Relations & Conditions If Any: MOTHER (The pt refuses to answer any more questions regarding family history) . ; Cause: Myocardial infarct. Relation not specified for: Family history unknown Psychosocial History Where Do You Live? Other (homeless) Who Do You Live With? self Services at Home: None Primary Language: Togolese Smoking Status: Former Smoker ETOH Use: occasional use Illicit Drug Use: marijuana Living Will? no Power of Switch Crew Supervisor/HCP? no Other Social History: "Messy divorce years ago" which "ruined his life". 2 dtrs, not seen for "20 yrs". Ex-10 pk yr cigarette smoker, stopped 30 yrs ago. Alcohol history is sketchy. He claims he has not drank since "school", but had markedly elevated alcohol levels in 05/2008. Denies illicit drugs, except for marijuana. No IVDA. Unemployed. Homeless. Functional Ability ADLs Independent: dressing, eating, toileting, bathing. Ambulation: independent IADLs Independent: shopping, housework, finances, food prep, telephone, transportation , medication admin. Employment History Employment: Unemployed ECHO Results (as available) Date of last Echo 01/10/17 EF% 15 Review of Systems Review of Systems: Full 14 point review of systems otherwise noncontributory, and as above. Review of Systems Constitutional: Denies: chills, diaphoresis, fever, malaise, weakness, unexplained weight loss. EENTM: Denies: blurred vision, double vision, visual changes, eye pain, eye drainage, eye tearing, icterus, ear discharge, ear pain, ear redness, hearing changes, nasal congestion, epistaxis, nasal pain, throat pain, throat swelling, mouth pain, tooth pain. Cardiovascular: Reports: palpitations. Denies: chest pain, edema, orthopena, peripheral edema, syncope. Respiratory: Denies: cough, hemoptysis, orthopnea, short of breath, sputum production, stridor, wheezing. GI: Reports: abdominal pain (focused on ? cyst in upper abd). Denies: bloating, constipation, diarrhea, distention, bowel incontinence, melena, nausea, bloody stool, changes in stool, vomiting, steatorrhea. Genitourinary: Denies: discharge, dysuria, frequency, hematuria, hesitation, nocturia, pain, urgency. Musculoskeletal: Denies: back pain, gout, joint pain, joint swelling, muscle pain, muscle stiffness, neck pain. Skin: Denies: cysts, change in skin color, change in hair/nails, dryness, erythema, jaundice, lesions, lymphangitis, lumps, moles, rash. Neurological/Psychological: Reports: anxiety, other (agitation). Denies: ataxia, cognitive dysfunction, confusion, depressed, dementia, emotional problems, headache, numbness, paresthesia, pre-existing deficit, petit mal seizures, tingling, tremors, tonic- clonic seizures, unable to move lower ext, unable to move upper ext, weakness. Hematologic/Endocrine: Denies: bruising, bleeding, polyuria, polydipsia. Immunologic/Allergic: Denies: splenectomy, HIV/AIDS, lymphadenopathy. All Other Systems: Reviewed and Negative Exam & Diagnostic Data Vital Signs and I&O Vital Signs Date Time Temp Pulse Resp B/P Pulse O2 O2 Flow FiO2 Ox Delivery Rate 01/30 1715 88 106/71 01/30 1637 97.0 88 18 106/71 93 Room Air 01/30 1424 88 108/70 01/30 1305 120/66 01/30 0810 83 102/78 01/30 0802 98.8 83 18 102/78 92 Room Air 01/30 0600 83 102/78 01/30 0057 79 100/80 01/30 0050 79 100/80 01/30 0020 92 Nasal 2.0L Cannula 01/30 0020 97.8 90 20 100/80 92 Nasal 2.0L Cannula 01/29 2254 98.4 90 20 109/80 88 Room Air 01/299 97.5 121 20 102/73 94 Room Air 01/29 2034 98.5 122 18 98/77 01/29 203 98.5 122 18 98/77 93 Room Air 01/29 194 97.4 121 18 92/68 01/29 1947 105 99/73 01/29 1938 97.4 121 18 92/68 93 Room Air 01/29 1910 97.4 124 20 92/59 94 Room Air 01/29 1818 96 01/29 181 136 20 92/64 96 Room Air 01/29 1807 122 20 102/64 96 Room Air 01/29 180 96.0 143 16 124/72 01/29 1750 143 16 124/72 95 Room Air Intake & Output 01/30 1600 01/30 0400 01/29 1600 01/29 0400 01/28 1600 01/28 0400 Intake Total 1000 Output Total Balance 1000 Intake, IV 1000 Number 1 Bowel Movements Patient 200 lb Weight Physical Exam: Well-developed, well-nourished male, agitated & somewhat beligerent & confrontational, in no apparent distress. Sclera anicteric. Conjunctiva pink. Oropharynx clear. No oral thrush. No aphthous ulcers. There is no adenopathy, thyromegaly, or JVD. Questionable mild HJR. Neck: supple. No peripheral stigmata of inflammatory bowel disease or chronic liver disease on exam. No spiders on the anterior chest. No gynecomastia. No CVA tenderness. Lungs: clear to A&P, except for a few bibasilar crackles. Heart exam: irregularly irregular rate rhythm, S1 and S2, with II/ systolic murmur. Abdominal exam: normal bowel sounds, soft belly, point tenderness in superficial aspect of anterior abdominal wall in upper epigastric region with minimal palpation, without guarding or rebound. Small 2 cm ? cystic mass in this vicinity, otherwise no mass. No organomegaly. Negative Wilson sign. *No fluid shift. No pulsatile mass. No epigastric bruits. Digital rectal exam: refused by patient. Extremities: without C, C, or E. No palpable cords. No palmar erythema. No Dupuytren's contractures. Distal pulses 2+ bilaterally. DTRs 2+ bilaterally. Motor 5/5 B/L. Alert and oriented x 3. No tremor. No asterixis. Results Pertinent Lab Results: Laboratory Tests 01/30 01/30 01/29 0608 0000 2310 Chemistry Sodium (137 - 145 mmol/L) 136 L Potassium (3.5 - 5.1 mmol/L) 5.2 H Chloride (98 - 107 mmol/L) 104 Carbon Dioxide (22 - 30 mmol/L) 25 Anion Gap (5 - 16) 7 BUN (9 - 20 mg/dL) 13 Creatinine (0.7 - 1.2 mg/dL) 1.2 Estimated GFR (>60 ml/min) > 60 BUN/Creatinine Ratio (7 - 25 %) 10.8 Magnesium (1.6 - 2.3 mg/dL) 1.9 Total Bilirubin (0.2 - 1.3 mg/dL) 0.6 Direct Bilirubin (< 0.4 mg/dL) 0.4 AST (17 - 59 U/L) 45 ALT (21 - 72 U/L) 83 H Alkaline Phosphatase (< 127 U/L) 61 Troponin I (<0.11 ng/ml) 0.02 Cancelled Total Protein (6.3 - 8.2 g/dL) 5.0 L Albumin (3.5 - 5.0 g/dL) 3.1 L Hematology CBC w Diff NO MAN DIFF REQ WBC (4.8 - 10.8 /CUMM) 8.0 RBC (4.70 - 6.10 /CUMM) 4.55 L Hgb (14.0 - 18.0 G/DL) 12.3 L Hct (42 - 52 %) 37.9 L MCV (80.0 - 94.0 FL) 83.3 MCH (27.0 - 31.0 PG) 27.0 RDW (11.5 - 14.5 %) 13.4 Plt Count (130 - 400 /CUMM) 158 MPV (7.4 - 10.4 FL) 10.4 Gran % (42.2 - 75.2 %) 72.3 Lymphocytes % (20.5 - 51.1 %) 19.9 L Monocytes % (1.7 - 9.3 %) 7.0 Eosinophils % (0 - 5 %) 0.3 Basophils % (0.0 - 2.0 %) 0.5 Absolute Granulocytes (1.4 - 6.5 /CUMM) 5.8 Absolute Lymphocytes (1.2 - 3.4 /CUMM) 1.6 Absolute Monocytes (0.10 - 0.60 /CUMM) 0.6 Absolute Eosinophils (0.0 - 0.7 /CUMM) 0 Absolute Basophils (0.0 - 0.2 /CUMM) 0 PUBS MCHC (33.0 - 37.0 G/DL) 32.4 L Toxicology Methadone Screen Cancelled Barbiturate Screen Cancelled Ur Phencyclidine Scrn Cancelled Amphetamines Screen Cancelled U Benzodiazepines Scrn Cancelled Urine Cocaine Screen Cancelled Urine Cannabis Screen Cancelled 01/29 1746 Chemistry Sodium (137 - 145 mmol/L) 137 Potassium (3.5 - 5.1 mmol/L) 4.4 Chloride (98 - 107 mmol/L) 102 Carbon Dioxide (22 - 30 mmol/L) 22 Anion Gap (5 - 16) 13 BUN (9 - 20 mg/dL) 14 Creatinine (0.7 - 1.2 mg/dL) 1.1 Estimated GFR (>60 ml/min) > 60 BUN/Creatinine Ratio (7 - 25 %) 12.7 Glucose (65 - 99 mg/dL) 132 H Calcium (8.4 - 10.2 mg/dL) 9.4 Total Bilirubin (0.2 - 1.3 mg/dL) 0.7 AST (17 - 59 U/L) 47 ALT (21 - 72 U/L) 89 H Alkaline Phosphatase (< 127 U/L) 61 Troponin I (<0.11 ng/ml) < 0.01 [id number] Pept (<125 pg/mL) 8540 H Total Protein (6.3 - 8.2 g/dL) 5.5 L Albumin (3.5 - 5.0 g/dL) 3.5 Globulin (1.9 - 4.2 gm/dL) 2.0 Albumin/Globulin Ratio (1.1 - 2.2 %) 1.8 Coagulation PT (9.4 - 12.5 SEC) 13.7 H INR (0.90 - 1.17) 1.31 H APTT (25 - 37 SEC) 28 Hematology CBC w Diff NO MAN DIFF REQ WBC (4.8 - 10.8 /CUMM) 8.1 RBC (4.70 - 6.10 /CUMM) 4.78 Hgb (14.0 - 18.0 G/DL) 12.9 L Hct (42 - 52 %) 39.6 L MCV (80.0 - 94.0 FL) 82.8 MCH (27.0 - 31.0 PG) 27.0 RDW (11.5 - 14.5 %) 13.3 Plt Count (130 - 400 /CUMM) 192 MPV (7.4 - 10.4 FL) 9.4 Gran % (42.2 - 75.2 %) 72.2 Lymphocytes % (20.5 - 51.1 %) 20.8 Monocytes % (1.7 - 9.3 %) 6.0 Eosinophils % (0 - 5 %) 0.4 Basophils % (0.0 - 2.0 %) 0.6 Absolute Granulocytes (1.4 - 6.5 /CUMM) 5.8 Absolute Lymphocytes (1.2 - 3.4 /CUMM) 1.7 Absolute Monocytes (0.10 - 0.60 /CUMM) 0.5 Absolute Eosinophils (0.0 - 0.7 /CUMM) 0 Absolute Basophils (0.0 - 0.2 /CUMM) 0.1 PUBS MCHC (33.0 - 37.0 G/DL) 32.6 L Toxicology Serum Alcohol (<10 MG/DL) < 10.0 Imaging/Other Studies: 01/29/2017: CT ABDOMEN AND PELVIS WITH IV CONTRAST- 1. Findings may reflect a degree of volume overload, with periportal edema, trace ascites, and mild subcutaneous fat stranding diffusely. 2. No evidence of bowel obstruction. Nonspecific fluid-filled loops of large and small bowel without evidence of acute inflammation or significant distention. 3. Additional nonacute findings as above. [*The patient is focused on diffuse mild subcutaneous edema. Small ovoid-shaped unchanged fluid pocket along the ventral mid upper abdomen measuring 2.4 x 0.9 cm is nonspecific and unchanged. Most likely, this is a sebaceous cyst. I reviewed the studies with Dr. Sandhu, of [facility], who agrees this is an incidental finding. There is absolutely no hernia in this region.] 01/29/2017: XRY-CHEST XRAY, PA AND LATERAL- Diffuse interstitial prominence suspicious for sequela of pulmonary/interstitial edema. Nonspecific lower lobe opacification on the lateral projection posteriorly. 01/30/2017: EKG- afib @ 99, normal axis, prolonged QT interval, PRWP, flipped T laterally. Assessment/Plan Assessment/Recommendations: 56 y/o male, homeless, recently admitted to [facility] 01/05/17-01/11/17, with rapid A. fib, successfully treated with electrical cardioversion 01/10/2017 , per Dr. Fitzgerald, after 01/06/2017: TTE & 01/10/2017: TIEN failed to reveal any thrombus. His CHADS score was 1. He went back into NSR and was discharged on Xarelto, Toprol & Lisinopril, none of which he was compliant with. The patient was previously seen in inpatient GI consultation by Dr. Campos 2016, for evaluation of abdominal pain, after he was already admitted for rapid A. fib, for which he has not been compliant with treatment. He was initially started on IV heparin and IV Cardizem then, per cardiology, prior to the electrical cardioversion. CT studies then (*numerous imaging studies were reviewed by myself today, 01/30/2017, with Dr. Sandhu, of [facility]), were negative for any obstruction or any obvious source of abdominal pain. The SMA was patent, as were his other abdominal vessels. Regarding a small amount of ascites then, Dr. Campos felt there was no radiographic evidence of cirrhosis, and the patient's stable platelet count and albumin:globulin ratio went against significant portal hypertension. *IR stated moderate risk of paracentesis then, given close proximity of ascites to liver, and they advised against diagnostic paracentesis. The patient was transiently hypotensive then, probably related to rapid A. fib and tachycardia-induced cardiomyopathy, with low EF 15-20%. The patient had a mild troponin peak bump of 0.11 last admission in 12/2016, felt to be secondary to demand ischemia. A benign/functional etiology for his GI symptoms was considered, with the caveat that he follows up with the office for more definitive investigative GI studies, including potential EGD/colonoscopy, after his cardiac issues stabilized. The patient's transaminases were elevated then, with normal alkaline phosphatase and TBil, and these were felt to be from either passive congestion vs. shock liver/ ischemic hepatitis, possibly with a minor component of EtOH. The patient remotely abused alcohol, but denies this at present, as he "can't afford it." No biliary pathology was seen on subsequent ultrasound. *Specifically, 01/05/2017: CTA CHEST/CT ABDOMEN AND PELVIS WITH IV CONTRAST- 1. Normal CT of thoracic and abdominal aorta. No dissection. No PE. 2. Scattered groundglass and nodular airspace opacities in the lungs bilateral. Would favor an infectious or inflammatory etiology. No pathologic- sized adenopathy. 3. Small volume abdominal ascites, around the liver, gallbladder, spleen, and B/ L paracolic gutter, with some layering in the pelvis at the cul-de-sac. No free air or obstruction. No hernia. 4. Normal enhancement of the vasculature. No aneurysm or dissection of the aorta. Normal enhancement of the celiac axis, SMA, renal arteries and iliac arteries. 01/07/2017: US ABDOMEN (RUQ) LIMITED- 1. Small amount of ascites in the RUQ & LUQ. 2. No evidence of cholelithiasis or cholecystitis. Normal CBD 4 mm. 3. Unremarkable liver. Antispasmodics, Omeprazole, and MiraLAX were advised, along with checking viral hepatitis panel, VIKI, and iron studies. *Although the patient remotely had 06/08/2008: [EtOH] 179.5, subsequent EtOH levels on 01/05/2017 & 01/29/2017 were < 10. 01/05/2017: amylase < 30, lipase 51, nl lactate 1.8 01/06/2017: *VIKI- negative 1:40. 01/06/2017: *Fe 44, TIBC 302, borderline low Fe sat 14%, ferritin 128. 01/06/2017: U/A- negative. 01/07/2017: *Hep A Ab, Hep Bs Ag, Hep C Ab & Hep B core Ab- all negative. 01/10/17: TRANSESOPHAGEAL ECHO- Moderate left ventricular dilatation. No left ventricular hypertrophy. Severely reduced global left ventricular systolic function. Left ventricular ejection fraction is estimated at 15 %. Normal right ventricular size. Mildly reduced right ventricular global systolic function. Mild to moderate right atrial dilatation. Mild to moderate left atrial dilatation. No thrombus detected in the left atrial appendage. Small interatrial shunt by Color Doppler. [id number] mitral regurgitation. Following the TIEN the patient was cardioverted from atrial fibrillation to SR using 200 J of energy. Tony Fitzgerald M.D. The patient never followed up with Dr. Fitzgerald or with Dr. Campos as an outpatient, and as previously stated, he stopped all of his medications. The patient is very suspicious of allopathic medicine, and is fixated on what I feel is a probable sebaceous cyst in his anterior abdominal wall, as the cause for both his GI and cardiac issues! *The patient returned to the [facility] 01/29/2017 5:04 PM, complaining of "hernia pains" (no hernia seen on multiple imaging studies, but rather a probable sebaceous cyst in the anterior abdominal wall). Upon arrival to the ER , BP 166/94, P 78, R 22, T 96, with O2 sat RA 93%. He was in atrial fibrillation, followed by rapid VR 120's-170's, with a drop in his systolic blood pressure to the 90's. He was given IV Metoprolol, IV Diazepam & IV NS. He then felt like he was going to "pass out." A Cardizem drip was rxd, with ventricular response going down to the 90's, and he was admitted to telemetry. 01/29/2017: Admission labs- WBC 8.1, H/H 12.9/39.6, nl MCV, PLT 192, PT 15.7, INR 1.31, PTT 28, glucose 132, BUN/Cr 14/1.1, GFR > 60, Na 137, K 4.4, HCO3 22, AG 13, Ca2+ 9.4, abdomen 3.5, globulin 2.0, TBil 0.7, alk phos 61, AST 47, ALT 89, troponin < 0.01, [EtOH] < 10, elevated BNP 8540 01/30/2017: WBC 8.0, H/H 12.3/37.9, nl MCV, PLT 158, BUN/Cr 13/1.2, GFR > 60, Na 136, K 5.2, HCO3 25, AG 7, Mg 1.9, albumin 3.1, globulin 1.9, TBil 0.6, DBil 0.4 , alk phos 61, AST 45, ALT 83, troponin .02 The patient was seen by Dr. Servin, of surgery, 01/30/2017, and was felt not to have any acute surgical issues at this time. The patient is currently belligerent and irrate. He is upset at me that he has not yet eaten, although I just met him 5 minutes ago. He is upset that "no one knows why he gets an irregular beat," and "no one knows what is causing his hernia." I repeatedly told him that there is no hernia, but rather, probably a cyst in his abdominal wall. It is hard for him to focus. I told him repeatedly that attention at the moment should be focused on his cardiac issues, so that eventually his GI issues can be better addressed. When I was inquiring about alcohol regarding his arrhythmia, cardiomyopathy, and abdominal symptoms, he told me I was going on a "fishing expedition." He refuses to answer questions but his family history and answered limited questions about his social history. He denies taking any aspirin or NSAIDs. He is a remote smoker. He claimed he last drank alcohol call "when in school," although he did have positive alcohol levels 06/08/2008. He denies any illicit drug use, except for marijuana. The patient has never had an EGD or baseline screening colonoscopy. He claims that he gets swelling in the upper abdomen after eating, which "blocks him". He stated that, he gets this pain without eating as well. He claims that it "grabs his colon like a pair of pliers" and that the upper epigastric region "enlarges and turns purple". He had a bowel movement today. He denies any long-standing diarrhea, constipation, obstipation, tenesmus, change in stool caliber, rectal bleeding, or melena. He denies any fevers, chills, or jaundice. He is uncertain as to weight loss. His appetite is good. He denies any reflux, nausea, vomiting, hematemesis, or early satiety. He denies any previous abdominal surgery. He currently denies any chest pain or shortness of breath. He did have palpitations in the ER. The patient refuses to answer any further questions. 01/30/2017: EKG- afib @ 99, normal axis, prolonged QT interval, PRWP, flipped T laterally. 01/29/2017: CT ABDOMEN AND PELVIS WITH IV CONTRAST- 1. Findings may reflect a degree of volume overload, with periportal edema, trace ascites, and mild subcutaneous fat stranding diffusely. 2. No evidence of bowel obstruction. Nonspecific fluid-filled loops of large and small bowel without evidence of acute inflammation or significant distention. 3. Additional nonacute findings as above. [*The patient is focused on diffuse mild subcutaneous edema. Small ovoid-shaped unchanged fluid pocket along the ventral mid upper abdomen measuring 2.4 x 0.9 cm is nonspecific and unchanged. Most likely, this is a sebaceous cyst. I reviewed the studies with Dr. Sandhu, of [facility], who agrees this is an incidental finding. *There is absolutely no hernia in this region.] 01/29/2017: XRY-CHEST XRAY, PA AND LATERAL- Diffuse interstitial prominence suspicious for sequela of pulmonary/interstitial edema. Nonspecific lower lobe opacification on the lateral projection posteriorly. *The patient is somewhat agitated and belligerent. He is fixated on the probable sebaceous cyst in his anterior abdominal wall, feeling that this is the cause of his cardiac issues. He refuses to answer many of my questions. He was yelling at me because he has not been fed. His scant ascites are probably cardiac in etiology. The ascites was previously felt not to be tappable, per IR. Unfortunately, no urine toxicology screen was obtained on the patient on admission. His mild transaminitis most likely is from passive congestion. If there were prolonged hypotension in the setting of rapid A. fib, he could have a mild component of shock liver. Numerous CAT scans and ultrasound have not shown any acute biliary pathology, although an elective HIDA scan at some point would not be unreasonable. Having stated that, he is clearly focused on the presumed cyst in the epigastric region. Recent Hepatitis A, B, and C serologies were negative, as was VIKI. There was previously no evidence of iron overload, but rather borderline low iron saturation 14%, with normal ferritin. He seems to have poor insight, poor judgment, and anger management issues. SUGGEST: Feed patient as tolerated. Empiric PPI. Multivitamin, thiamine, and folate. * Check TFTs with TSH, especially with A. fib. Consider repeating lipase. Treatment of rapid A. fib & cardiomyopathy, as per cardiology. The patient was told numerous times that his cardiac status has to be stabilized prior to entertaining any GI workup. He was also told that he could even without allowing cardiac intervention. Consider toxicology screen, however he has already been an inpatient for 2 days, and may have received in-house narcotics. Advise psychiatric input and social service input. Antispasmodics. The patient was told to call our office for additional GI workup (i.e.- EGD, baseline screening colonoscopy, possible HIDA scan, etc.), once he is cleared from a cardiac perspective. Perhaps he might benefit from having surgery aspirating his abdominal wall cyst as an outpatient, or getting a local Xylocaine injection in his abdominal wall, once he is cleared from a cardiac perspective. The patient is agitated and seems to have difficulty in focusing at the main problem at hand. I am not certain he will comply with the above suggestions. Further inpatient GI follow up as needed. The case was discussed with Dr. Fitzgerald, who concurs. Problem List: 1. Abdominal pain 2. Subcutaneous cyst 3. Transaminitis Copies To: QUINTEN JACOBS,TONY; MAYO JACOBS,ANGÉLICA Brito; RAY JACOBS,GREG Consult Acknowledgment - Thank you for your consult request.
[2017-01-30 16:37] VITALS: BP 106/71
[2017-01-30 22:51] VITALS: BP 98/60
[2017-01-31 08:17] VITALS: BP 114/70
--- NOTE | 2017-01-31 08:29 | PN- Housestaff ---
See Addendum Subjective Follow-up For: Abdominal pain Kennedy roldan with rapid ventricular rate Tele-Events Since Last Visit: Kennedy roldan, heart rate 92-102 Subjective: Seen and examined patient. Offers no complaints. Denies fevers, chills, shortness of breath or palpitations says that he is tolerating the medications with no issues. Review of Systems Constitutional: Denies: chills, diaphoresis, fever, malaise, weakness, unexplained weight loss. Cardiovascular: Denies: chest pain, edema, orthopena, palpitations, peripheral edema, syncope. Respiratory: Denies: cough, hemoptysis, orthopnea, short of breath, sputum production, stridor, wheezing. Objective Last 24 Hrs of Vital Signs/I&O Vital Signs Date Time Temp Pulse Resp B/P Pulse O2 O2 Flow FiO2 Ox Delivery Rate 01/31 0908 92 114/70 01/31 0817 98.1 92 18 114/70 95 Room Air 01/31 0800 Room Air 01/30 2251 99.2 90 18 98/60 94 Room Air 01/30 1715 88 106/71 01/30 1637 97.0 88 18 106/71 93 Room Air 01/30 1600 Room Air Intake & Output 01/31 1600 01/31 0800 01/31 0000 Intake Total 740 450 480 Output Total Balance 740 450 480 Intake, IV 20 Intake, Oral 720 450 480 Physical Exam General Appearance: Alert, Oriented X3, Cooperative, No Acute Distress Cardiovascular: Normal S1, Normal S2 Lungs: Clear to Auscultation, Normal Air Movement Abdomen: Normal Bowel Sounds, Soft, No Tenderness Current Medications: Current Medications Sig/Anthony Start time Last Medication Dose Route Stop Time Status Admin Digoxin 0.125 MG 1700 01/30 1700 DCD 01/30 PO 1715 Magnesium Oxide 400 MG ONE ONE 01/31 0845 DC 01/31 PO 01/31 0846 0908 Metoprolol Succinate 12.5 MG DAILY 01/30 1145 DCD 01/31 PO 0908 Pantoprazole Sodium 40 MG DAILY 01/30 1000 DCD 01/31 IV 0908 Rivaroxaban 20 MG 1700 01/30 1700 DCD 01/30 PO 1715 Last 24 Hrs of Lab/Armond Results Last 24 Hrs of Labs/Mics: Laboratory Tests 01/31/17 0613: Anion Gap 4 L, Estimated GFR > 60, BUN/Creatinine Ratio 13.6, Magnesium 1.8 Assessment/Plan Assessment: 56-year-old gentleman currently homeless and living with his friend, noncompliant with medications, recent hospitalization for new onset atrial fibrillation with rapid ventricular response s/p cardioversion, history of EtOH dependence, here for evaluation of abdominal pain. Chest x-ray showed diffuse interstitial prominence and nonspecific lower lobe opacification. CT abdomen and pelvis showed a degree of volume overload with periportal edema, trace ascites no evidence of bowel obstruction and nonspecific fluid-filled loops of large and small bowel without evidence of acute inflammation. #A. 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 -ACS ruled out with negative troponins and no new changes on EKG -Cardiology on board appreciate recommendations, on 0.125 by mouth digoxin daily, he will be discharged on 25 mg of metoprolol daily, his lisinopril was also be held upon discharge -Continue Xarelto Patient was counseled extensively on importance of taking his medication on a regular basis and the importance of follow-up with physicians and he verbalized understanding and said that he will attempt to do so. Referral to Dr. Zoe Arenas was given. #Abdominal pain -Surgery and GI consulted No surgical intervention needed at this time, will be discharged on by mouth Protonix Follow-up with Dr. Campos as an outpatient Full code, DVT prophylaxis Xarelto and Alps Medically stable for discharge today Problem List: 1. Abdominal pain 2. Atrial fibrillation with rapid ventricular response Pain Ratin Pain Location: Not applicable Pain Goal: Pain 4 or less Pain Plan: Current regimen Tomorrow's Labs & Rationales: None required Consulting Request: Consulting Specialty: General Surgery
[2017-01-31 09:08] VITALS: BP 114/70
[2017-01-31] MEDS ORDERED: TOPROL XL25 M1 PO (10:56)
--- NOTE | 2017-01-31 11:00 | Patient Discharge Instructions ---
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 Campos within 2 weeks of discharge Please follow-up with a new primary care physician Dr. Arenas These take your medications as instructed Acute Coronary Syndrome Inclusion Criteria At DC or during hospital stay patient has or had the following: ACS DIAGNOSIS No Discharge Core Measures Meds if any: Prescribed or Continued at Discharge Meds if any: NOT Prescribed or Continued at Discharge Congestive Heart Failure Inclusion Criteria At DC or during hospital stay patient has or had the following: CHF DIAGNOSIS No Discharge Core Measures Meds if any: Prescribed or Continued at Discharge Meds if any: NOT Prescribed or Continued at Discharge Cerebrovascular accident Inclusion Criteria At DC or during hospital stay patient has or had the following: CVA/TIA Diagnosis No Discharge Core Measures Meds if any: Prescribed or Continued at Discharge Meds if any: NOT Prescribed or Continued at Discharge Venous thromboembolism Inclusion Criteria VTE Diagnosis No VTE Type NONE VTE Confirmed by (Test) NONE Discharge Core Measures - Per Current guidelines, there needs to be overlap - treatment for the first 5 days of Warfarin therapy. - If discharged on Warfarin prior to 5 days of - overlap therapy, the patient will need to be - assessed for post discharge needs including - *Post discharge parental anticoagulation - *Warfarin and/or parental anticoagulation education - *Follow up date to check INR post discharge At least 5 days overlap therapy as Inpatient No Meds if any: Prescribed or Continued at Discharge Note: Overlap Therapy is Warfarin and Anticoagulant Meds if any: NOT Prescribed or Continued at Discharge
--- NOTE | 2017-01-31 11:14 | Discharge Summary ---
Visit Information Visit Dates Admission Date: 01/29/17 Discharge Date: 01/31/17 Hospital Course Course [facility]ending Phys[facility] Primary Care Physician: Zoe Arenas MD Consulting Request: Consulting Specialty: General Surgery Hospital Course: 56 year old gentleman with past medical history of Atrial fibrillation with recent admission to [facility] on 01/05/17, s/p electrical cardioversion ( 01/10/2017) by Dr. Fitzgerald and was discharged on Xarelto, Toprol & Lisinopril, none of which he was compliant with. Presented to [facility] for complaints of epigastric pain of 2 days duration. Vitals on admission: Temp 96.0-98.4, HR 78-163, RR 18-22, BP 92-166/59-94, O2 88 -96% on room air Labs: WBC 8.1, Hgb/HCT 12.9/39.6, normal serum chemistries/LFTs, troponin <0.01, BNP 8540, PT 13.7, INR 1.31 EKG showed atrial fibrillation with RVR, prolonged QT interval, left ventricular hypertrophy and T-wave flattening in inferior leads and T-wave inversions in V5- 6 CT abdomen/pelvis-findings suggestive of volume overload with periportal edema, trace ascites, and mild subcutaneous fat stranding without evidence of bowel obstruction or acute inflammation/distention and a small ovoid shaped unchanged fluid pocket along the ventral mid upper abdomen. He was admitted to the telemetry floor and the following issues were addressed: Recurrent atrial fibrillation with rapid ventricular response No further events were noted on traffic monitor specialist during his course. ACS was ruled out with negative troponins and no new changes on EKG. In December 2016 his EF was observed to be 15%. He was started on 0.125 by mouth digoxin daily. Metoprolol dose was changed to 25 mg daily and his lisinopril was discontinued. Xarelto was continued. Patient was counseled extensively on importance of taking his medication on a regular basis and the importance of follow-up with physicians. He verbalized understanding and said that he will attempt to do so. Referral to Dr. Zoe Arenas was given. He will be following up with his oil fire specialist Dr. Fitzgerald as outpatient. Abdominal pain Surgery and GI was consulted. Both specialties deemed that no surgical intervention was needed at this time as a benign/functional etiology for his GI symptoms was considered. Will be discharged on by mouth Protonix. Follow-up with Dr. Campos as an outpatient for additional GI workup (EGD, baseline screening colonoscopy, possible HIDA scan) once he is stable from cardiac perspective. Complications: none Allergies: Coded Allergies: Penicillins (UNKNOWN 01/05/17) Significant Procedures: SERVICE DATE: 01/29/17 EXAM TYPE: RAD - XRY-CHEST XRAY, PA AND LATERAL FINDINGS: The lungs are borderline hyperexpanded. There is diffuse interstitial prominence. Opacification is demonstrated over the lower lobes on the lateral projection posteriorly. No large pleural effusion. The cardiac contour is mildly prominent unchanged. No acute osseous abnormalities. IMPRESSION: Diffuse interstitial prominence suspicious for sequela of pulmonary/interstitial edema. Nonspecific lower lobe opacification on the lateral projection posteriorly. SERVICE DATE: 01/29/17 EXAM TYPE: CAT - CT ABD & PELVIS W IV CONTRAST FINDINGS: LUNG BASES: Dependent parenchymal changes. No pleural effusion. Mildly prominent cardiac size. PERITONEAL CAVITY: Trace volume of ascites. No pneumoperitoneum. LIVER, GALLBLADDER, AND BILIARY TREE: The liver is normal in size, shape, and attenuation. No focal hepatic lesion or biliary ductal dilatation is present. There is a degree of periportal edema. The gallbladder is distended without radiodense gallstones or significant mural thickening. PANCREAS: Unremarkable. SPLEEN: Unremarkable. ADRENAL GLANDS: Unremarkable. KIDNEYS AND URETERS: The kidneys are normal in size, shape, and attenuation. No hydronephrosis, hydroureter, or calculi seen. No perinephric stranding. BLADDER: Unremarkable. GASTROINTESTINAL TRACT: Fluid-filled loops of large and small bowel are demonstrated without significant bowel distention. No evidence of acute bowel inflammation. The appendix is not discretely delineated. ABDOMINAL WALL: Diffuse mild subcutaneous edema. Small ovoid-shaped unchanged fluid pocket along the ventral mid upper abdomen measuring 2.4 x 0.9 cm is nonspecific and unchanged. LYMPH NODES: No bulky adenopathy is demonstrated. VASCULAR: Unremarkable. PELVIC VISCERA: Punctate central prostate calcifications. Seminal vesicles are unremarkable. OSSEOUS STRUCTURES: No acute osseous abnormalities. IMPRESSION: 1. Findings may reflect a degree of volume overload, with periportal edema, trace ascites, and mild subcutaneous fat stranding diffusely. 2. No evidence of bowel obstruction. Nonspecific fluid-filled loops of large and small bowel without evidence of acute inflammation or significant distention. 3. Additional nonacute findings as above. Disposition Summary Disposition Principal Diagnosis: Abdominal pain Additional Diagnosis: Atrial fibrillation Discharge Disposition: home or self care Discharge Instructions General Discharge Information Code Status: Full Code Patient's Diet: Heart healthy Patient's Activity: as tolerated Follow-Up Instructions/Appts: follow-up with oil fire specialist within 1 week of discharge follow-up with GI specialist within 2 weeks of discharge follow-up with a new primary care physician Dr. Arenas Medications at Discharge Discharge Medications: Stop taking the following medications: Lisinopril (Lisinopril) 2.5 MG TABLET ORAL DAILY Qty = 30 Metoprolol Succ XL (Toprol XL) 25 MG TAB ORAL DAILY Qty = 60 Continue taking these medications: Rivaroxaban (Xarelto) 20 MG TABLET 1 Tablet ORAL Every night Qty = 30 Instructions: with food Comments: Last Taken: 01/30/17 Time: 5 PM Dicyclomine Hydrochloride (Bentyl) 10 MG CAPSULE 1 Capsule ORAL 4 TIMES A DAY as needed for Abdominal pain Qty = 90 Comments: NOT GIVEN IN HOSPITAL Omeprazole Magnesium (Prilosec Otc) 20 MG TABLET.DR 1 Tablet ORAL DAILY Qty = 30 Comments: Last Taken: 01/31/17 Time: 9 AM Polyethylene Glycol 3350 (Miralax) 17 GRAM/DOSE POWDER 17 Gram ORAL DAILY as needed for Constipation Qty = 255 Instructions: mix with water, juice, soda, coffee or tea Comments: NOT GIVEN IN HOSPITAL Start taking the following new medications: Digoxin (Lanoxin) 125 MCG TABLET 0.125 Milligram ORAL 5 PM Qty = 30 No Refills Comments: Last Taken: 01/30/17 Time: 5PM Metoprolol Succ XL (Toprol XL) 25 MG TAB 1 Tablet ORAL DAILY Qty = 30 No Refills Copies To: BENJI JACOBS,ZOE Chavarria MD Review Statement Documenting Attending: QUINTEN JACOBS,TIMOTHY
[2017-01-31] MEDS ORDERED: LANOXIN125 MCG PO (11:27)
--- NOTE | 2017-01-31 22:35 | PN- Att Addend ---
Attending Addendum Attending Brief Note I have personally seen and examined this patient. I have personally reviewed all relevant imaging and laboratory data. I have discussed the case with the care team. 1. Recurrent atrial fibrillation with rapid ventricular response 2. Medical noncompliance (both with medications and follow-up visits) 3. 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 Intermittent Abdominal pain without evidence of bowel obstruction 5. Abnormal LFTs 6. Status post TIEN cardioversion 01/10/2017, with recurrent afib Patient's abdominal symptoms have improved significantly. Eating without difficulty. Surgery/GI input reviewed and appreciated, further outpatient assessment is again planned. Remains in afib with HR well controlled on medical regimen. Vitals stable. Patient is now stable for discharge with close outpatient follow-up as previously recommended. CMR signed. Instructed to follow -up with me within 1 week in addition to GFP and GI follow-up within 1-2 weeks. He demonstrates understanding and assures me he will now be compliant with the follow-up plan. I addressed all of his questions/concerns and he feels comfortable being discharged at this time. Roberto Fitzgerald MD [facility]
== END 2017-01-31 11:46 | DRG 201 ==
LOC: ENRESERVTM → ENRESERVDT → ERH 17:04 → ERHI 20:14 → 1NO 20:14
PROVIDERS: Internal Medicine; Physician Assistant; ADMIT Internal Medicine
DX: I48.91 Unspecified atrial fibrillation (principal); I42.9 Cardiomyopathy, unspecified; F10.20 Alcohol dependence, uncomplicated; Z59.0 Homelessness; R10.9 Unspecified abdominal pain; F12.90 Cannabis use, unspecified, uncomplicated; Z79.01 Long term (current) use of anticoagulants; I34.0 Nonrheumatic mitral (valve) insufficiency; Z91.14 Patient's other noncompliance with medication regimen
CPT/HCPCS: 1NSP; 36415; 74177; 80307; 82436; 93005; 93010; 96361; 96374; 96375; 96376; 99291; G0480; J1160; J3360; J3490